=== PATIENT | female | born 1960 | race Caucasian/White ===

== ENCOUNTER 2021-08-29 12:02 | Outpatient (REF) | payer OTHER, SELFPAY | END 2021-08-29 12:03 | disposition home or self-care (01) | LOC: HO.LAB 12:02 | PROVIDERS: Visit Provider Family Medicine | DX: N39.0 Urinary tract infection, site not specified (principal) | CPT/HCPCS: 87086 ==

== ENCOUNTER 2022-09-23 11:55 | Outpatient (REF) | payer OTHER, SELFPAY | END 2022-09-23 11:56 | disposition home or self-care (01) | LOC: HO.LAB 11:55 | PROVIDERS: Visit Provider Hospitalist | DX: R82.71 Bacteriuria (principal) | CPT/HCPCS: 87086; 87088; 87186 ==

== ENCOUNTER 2022-09-26 07:34 | Outpatient (REF) | payer OTHER, SELFPAY ==
[2022-09-26 11:59] LABS: Hematocrit 40.1 % (37.0-47.0); Mean Corpuscular HGB Conc 32.4 g/dl (31.0-35.0); Mean Corpuscular Hemoglobin 29.6 pg (27.0-33.0); Mean Corpuscular Volume 91.3 fL (80.0-98.0); Mean Platelet Volume 9.2 fL (9.4-12.3); Platelet Count 344 X10*3/uL (160-400); Red Blood Count 4.39 X10*6/uL (4.20-5.50); Red Cell Distribution Width 11.5 % (11.0-16.0)
[2022-09-26 12:37] LABS: Alanine Aminotransferase 29 U/L (0-31); Albumin Level 4.2 g/dL (3.5-5.0); Alkaline Phosphatase 60 U/L (39-117); Anion Gap 12 (12-20); Aspartate Amino Transferase 31 U/L (5-31); Bilirubin Total 0.4 mg/dL (0.0-1.0); Blood Urea Nitrogen 23 mg/dL (9-16); Calcium 9.2 mg/dL (8.4-10.2); Carbon Dioxide 26 mmol/L (22-29); Chloride 107 mmol/L (96-108); Cholesterol 181 mg/dL; Estimated Glomerular Filt Rate > 60; Glucose Fasting 92 mg/dL (60-99); HDL Cholesterol 53 mg/dL; LDL Cholesterol Calculated 119 mg/dl; Potassium 5.2 mmol/L (3.3-5.1); Sodium 140 mmol/L (135-145); Total Protein 6.7 g/dL (6.5-8.0); Triglycerides 49 mg/dL
[2022-09-26 12:38] LABS: TSH reflex Free T4 0.22 uIU/mL (0.32-4.0)
[2022-09-26 13:13] LABS: Free T4 (Free Thyroxine) 1.21 ng/dL (0.71-1.85)
== END 2022-09-26 07:35 | disposition home or self-care (01) ==
LOC: HO.WFDLDS 07:34
PROVIDERS: Visit Provider Hospitalist
DX: Z00.00 Encounter for general adult medical examination without abnormal findings (principal); E03.9 Hypothyroidism, unspecified
CPT/HCPCS: 36415; 80053; 80061; 84439; 84443; 85027

== ENCOUNTER 2022-11-12 09:20 | Outpatient (REF) | payer OTHER, SELFPAY ==
[2022-11-12 12:54] LABS: TSH reflex Free T4 1.05 uIU/mL (0.32-4.0)
== END 2022-11-12 09:21 | disposition home or self-care (01) ==
LOC: HO.WFDLDS 09:20
PROVIDERS: Visit Provider Hospitalist
DX: E03.9 Hypothyroidism, unspecified (principal)
CPT/HCPCS: 36415; 84443

== ENCOUNTER 2023-04-13 10:45 | Outpatient (AMB) | payer OTHER, SELFPAY ==
--- NOTE | 2023-04-13 10:52 | MHC.PC.OV ---
Vital Signs 04/13/23 10:53 Height 5 ft 2 in Weight 87 lb 8 oz BMI 16.0 BP 104/60 Blood Pressure Location Lt brachial Position Sitting Pulse 70 Pulse Source Pulse Oximeter Pulse Oximetry (%) 98 Oxygen Delivery Method Room Air Intake Visit Reasons: trans of care from monie mueller, [place] Intake Note: Patient is here to follow up on hypothyroid and MS. Patient would like a refill of her Venlafaxine. She is also having trouble with her bowel movements. Allergies tetracycline Allergy (Mild, Verified 04/13/23 10:57) Rash Tobacco use date assessed: 04/13/23 Fall risk assessment: No Falls in past year Last assessed Fall Risk: 04/13/23 Dental Screening Dental Screen Date: 04/13/23 Did you have a dental visit in the last 12 months?: No Did you have a dental problem in the last 6 months where you did not have access to dental care?: No Was dental information given to patient?: Yes HPI trans of care from monie mueller [place] HPI Details Transfer of Care Prior PCP:?oMnie Menon Acute issue(s): Issues with bowel movements -Feels constipated a lot of the time Bladder spasms which didn't improve w/ hycosamine and oxybutinine . Needs urologist. 2ndary progressive MS -Needs neurologist PMHx: Hypothyroidism, MS, Overactive bladder SurgHx: Tonsillectomy FHx: Mom: Spinal stenosis, afib. Dad: CAD. Brother: Renal CA, Thyroid CA. Niece: Breast CA SocHx: Nonsmoker. EtOH none. No drugs. [facility] Social History Housing: House Patient Tobacco Use Status: Never used Tobacco e-Cigarette/Vaping Use: Never Used Second Hand Smoke Exposure: No service: No Current occupational status: retired Current occupational exposures/hazards: No Cognitive needs: No Hearing needs: No Vision needs: Yes (Patient wears reading glasses.) Questionnaire Thrive Questionnaire Date Thrive assessed: 09/23/22 JAYLA-7 AMB Questionnaire JAYLA-7 Date JAYLA - 7 assessed: 09/23/22 Source: Developed by Drs. Gabriele Dominguez, Jolene Heredia, Hammad Hess and colleagues, with an educational starr from [employer]. Review of Systems Const Denies chills, Denies fatigue, Denies fever(s), Denies headache(s) and Denies weakness ENT Denies dizziness and Denies headache(s) Card Denies chest pain, Denies lightheadedness, Denies dyspnea and Denies other (Palpitations) Resp Denies cough, Denies dyspnea, Denies wheezing and Denies other ( shortness of breath) Musc Denies numbness and Denies tingling Neuro Denies dizziness, Denies headache(s), Denies numbness, Denies tingling, Denies paresthesias and Denies weakness Psych Denies anxiety and Denies depression Endo Denies fatigue Aller/Immun Denies wheezing Physical exam (Primary Care) Vital Signs: Last Vital Signs Pulse 70 04/13/23 10:53 BP 104/60 04/13/23 10:53 Pulse Ox 98 04/13/23 10:53 Oxygen Delivery Method Room Air 04/13/23 10:53 BMI result Body Mass Index 16.0 Tobacco/Smoking Status: Tobacco use Status Tobacco use date assessed 04/13/23 04/13/23 11:06 Patient Tobacco Use Status Never used Tobacco 04/13/23 11:06 e-Cigarette/Vaping Use Never Used 04/13/23 11:06 Thrive Assessment: Date of Thrive Assessment Date Thrive assessed 09/23/22 04/13/23 11:06 Const General: no acute distress and well developed Nutritional Appearance: well nourished Orientation/consciousness: patient oriented x3 HENMT Head: Yes normocephalic and Yes atraumatic Eyes General: appearance normal, both eyes and all related structures Pupils: Equal, round and reactive pupils present EOM: EOMs intact bilaterally Resp Effort & Inspection: normal respiratory effort Auscultation: clear to auscultation bilaterally Cardio Rate: regular rate Rhythm: regular rhythm Heart sounds: S1 normal heart sound present, S2 normal heart sound present, no gallops, no murmurs and no rubs Neuro General: patient oriented x3 and gait normal Cranial nerves: Yes Equal, round and reactive pupils present Psych Affect: normal affect Assessment and Plan Assessment & Plan (1) Hypothyroidism (acquired): Code(s): E03.9 - Hypothyroidism, unspecified Plan: Check?thyroid?labs Continue?levothyroxine?as?prescribed (2) Overactive bladder: Code(s): N32.81 - Overactive bladder Plan: Has?tried hycosamine?and?oxybutynin. Symptoms?may?be?partly?due?to?MS Referred?to?Urology (3) Multiple sclerosis: Code(s): G35 - Multiple sclerosis Plan: Referred?to?neurology (4) Constipation: Code(s): K59.00 - Constipation, unspecified Plan: Increase?hydration?and?keep?fluid?intake?regular Trial?soluble?fiber Can?use?prune?juice?as?well If?not?improving?will?refer?to?GI (5) Laboratory exam ordered as part of routine general medical examination: Code(s): Z00.00 - Encounter for general adult medical examination without abnormal findings Orders: Orders Complete Blood Count Auto Diff Today Z00.00 - Encounter for general adult medical examination without abnormal findings Microalbumin, Random (w Creat) Today I10 - Essential (primary) hypertension Free T4 (Free Thyroxine) Today E03.9 - Hypothyroidism, unspecified UA and rflx microscopic Today Z00.00 - Encounter for general adult medical examination without abnormal findings Comprehensive [place]. 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
[2023-04-13 10:53] VITALS: BP 104/60; PULSE 70; O2SAT 98; BMI 16.0
== END 2023-04-13 11:35 | disposition home or self-care (01) ==
PROVIDERS: PCP Hospitalist; Visit Provider Family Medicine
DX: E03.9 Hypothyroidism, unspecified (principal); N32.81 Overactive bladder; G35 Multiple sclerosis; K59.00 Constipation, unspecified; Z00.00 Encounter for general adult medical examination without abnormal findings
CPT/HCPCS: 99214

== ENCOUNTER 2023-05-12 11:19 | Outpatient (AMB) | payer OTHER, SELFPAY ==
--- NOTE | 2023-05-12 11:34 | A.OFFVIS_ITS ---
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 She has a past medical history of MS, hypothyroidism, constipation, and overactive bladder. She presents to the office today as a new patient for lower urinary tract symptoms. In discussion with the patient today she reports having followed up with the urologist via online and having tried hycosamine and oxybutynin without any improvement in lower urinary tract symptoms. She reports symptoms have been present for quite some time. She discusses noting worsen urinary urgency. She reports noting urinary frequency, urinary urgency, with episodes of incontinence if not near a bathroom. She also reports nocturia however discusses her long sleep habits due to her MS and feels at times it is not her bladder that wakes her up to urinate. She otherwise denies hematuria, dysuria, foul smelling urine, changes to urinary stream, flank pain, fever, and or chills. In office urinalysis results reviewed with the patient today. PVR 170 mL. Discussed at length potential causes for lower urinary tract symptoms patient is experiencing. Discussed causes and affects of incomplete bladder emptying. She discusses her longstanding history of constipation in have tried multiple lifestyle modifications as well as medications for treatment of constipation. She otherwise offers no issues or concerns at this time. [facility] Housing: House Patient Tobacco Use Status: Never used Tobacco e-Cigarette/Vaping Use: Never Used Second Hand Smoke Exposure: No service: No Current occupational status: retired Current occupational exposures/hazards: No Cognitive needs: No Hearing needs: No Vision needs: Yes (Patient wears reading glasses.) Review of Systems Const Reports as per [facility] Eyes Reports no additional complaints ENT Reports no additional complaints Card Reports no additional complaints Resp Reports no additional complaints GI Reports as per [facility] Reports as per [facility] Musc Reports as per [facility] Neuro Reports no additional complaints Psych Reports no additional complaints Endo Reports as per [facility] Physical Exam Const General: cooperative, healthy appearing, comfortable, no acute distress, well developed, alert and awake Nutritional Appearance: thin Orientation/consciousness: patient oriented x3 Limitations: no limitations HEENT Head: Yes normal to inspection, Yes normocephalic and Yes atraumatic Ears: hearing grossly normal bilaterally Eyes General: appearance normal, both eyes and all related structures Neck Neck: Yes normal visual inspection and Yes trachea midline Chest Chest palpation & inspection: normal inspection of the chest Resp Effort & Inspection: normal respiratory effort and able to speak in complete sentences Cardio Rate: regular rate GI Inspection: Yes normal to inspection General: Yes no CVA tenderness Back/Spine/Pelvis Back: no CVA tenderness Skin General skin exam: no rashes or lesions noted Neuro General: patient oriented x3 Extrem General: Yes normal to inspection Psych Appearance: grossly normal and well kempt Mental Status: mental status grossly normal Speech and movement: Normal speech and movement present and Clear speech present Affect: normal affect Attitude: cooperative Thought process: Normal thought process present Thought content: Normal thought content present Insight: Fair insight present (Psych) Judgement: Fair judgement present (Psych) Office Procedures Post Void Residual Post Residual Void Post Void Residual (PVR): 170 [id number] Void Residual by ultrasound Results AMB Urinalysis, Automated UA Leukoctes 500 Quinn/uL Last Edit by [employer] on 05/12/23 12:11 UA Nitrite Negative Last Edit by [employer] on 05/12/23 12:11 UA Urobilinogen 0.2 mg/dL Last Edit by [employer] on 05/12/23 12:11 UA Protein 15 mg/dL Last Edit by [employer] on 05/12/23 12:11 UA pH 7.0 Last Edit by [employer] on 05/12/23 12:11 UA Blood 80 David/uL Last Edit by [employer] on 05/12/23 12:11 UA Specific [place] 1.015 Last Edit by [employer] on 05/12/23 12:11 UA Ketone Negative Last Edit by Neris Anderson on 05/12/23 12:11 UA Bilirubin 0 mg/dL Last Edit by Neris Anderson on 05/12/23 12:11 UA Glucose 0 mg/dL Last Edit by Neris Anderson on 05/12/23 12:11 Results Reviewed Results Reviewed: Laboratory Last Values Urine pH (Auto) 7.0 05/12/23 11:38 Specific [place] (Auto) 1.015 05/12/23 11:38 Urine Protein (Auto) 15 mg/dL 05/12/23 11:38 Glucose (UA)(Auto) 0 mg/dL 05/12/23 11:38 Urine Ketones (Auto) Negative 05/12/23 11:38 Urine Blood (Auto) 80 David/uL 05/12/23 11:38 Urine Nitrite (Auto) Negative 05/12/23 11:38 Urine Bilirubin (Auto) 0 mg/dL 05/12/23 11:38 Urine Urobilinogen (Auto) 0.2 mg/dL 05/12/23 11:38 Leukocyte Esterase (Auto) 500 Quinn/uL 05/12/23 11:38 Assessment & Plan Assessment & Plan (1) Incomplete bladder emptying: Code(s): R33.9 - Retention of urine, unspecified (2) Overactive bladder: Code(s): N32.81 - Overactive bladder (3) UTI (urinary tract infection): Code(s): N39.0 - Urinary tract infection, site not specified Plan: In office urinalysis results reviewed with the patient today; as noted above; will send for urine culture. PVR 170 mL. Will obtain retroperitoneal ultrasound for further assessment evaluation. Start Macrobid as discussed and prescribed. Start terazosin 1 mg at bedtime. Discussed at length potential causes for lower urinary tract symptoms patient is experiencing. Discussed causes and affects of incomplete bladder emptying. Discussed attempting to double void to assist with incomplete bladder emptying. Discussed UTI prevention with D mannose supplement, vitamin-C, increasing fluid intake, behavioral therapy with timed voiding, perineal hygiene and postcoital voiding, and management of constipation with stool softeners and increased fiber intake. Follow-up in 6 weeks with imaging and PVR at next office visit; or sooner with any issues, concerns, and or questions. Orders: Orders AMB Urinalysis Automated Today Z13.9 - Encounter for screening, unspecified Urine Culture Today N39.0 - Urinary tract infection, site not specified AMB Post Void Residual by ultrasound Today N32.81 - Overactive bladder US retroperitoneal comp Today N32.81 - Overactive bladder, N39.0 - Urinary tract infection, site not specified, R33.9 - Retention of urine, unspecified Medications: New nitrofurantoin macrocrystal 100 mg PO BID 7 days 14 caps 0RF R32 - Unspecified urinary incontinence terazosin 1 mg PO BEDTIME 30 days 30 caps 1RF R39.12 - Poor urinary stream Patient Instructions: The patient had an opportunity to ask questions regarding the treatment plan. All questions were answered. Physical exam, labs, and imaging were discussed and reviewed in detail. As well as risks, benefits, and discussion of treatment choices. No major barriers to understanding were identified. The patient expressed understanding and agreement with the above treatment plan. The patient was made aware they should contact our office by phone for worsening of their current condition, the appearance of new symptoms, or with any questions or concerns. Compliance is encouraged with any medications and follow up testing that is ordered. It is a privilege to be allowed the opportunity to participate in? your urological care.? Again, if you have any questions or concerns If you have any questions or concerns please do not hesitate to contact me. The office is [phone]. This note is constructed using voice recognition software. While every effort has been made to ensure accuracy general operations agent errors may have been included. Yours sincerely, FLORINA Cid Coding Level of Care Code New Pt Level 4 (86802) Diagnoses Incomplete bladder emptying R33.9 Overactive bladder N32.81 UTI (urinary tract infection) N39.0 CPT Codes Post Residual Void - PVR CPT Code: 28782-Biwl Void Residual by ultrasound ([id number])
== END 2023-05-12 13:31 | disposition home or self-care (01) ==
PROVIDERS: PCP Hospitalist; Visit Provider Nurse Practitioner Family
DX: R33.9 Retention of urine, unspecified (principal); N32.81 Overactive bladder; N39.0 Urinary tract infection, site not specified
CPT/HCPCS: 99204

== ENCOUNTER 2023-05-12 11:19 | Outpatient (REF) | payer OTHER, SELFPAY | END 2023-05-12 11:20 | disposition home or self-care (01) | LOC: HO.LNP 11:19 | PROVIDERS: PCP Hospitalist; Visit Provider Nurse Practitioner Family | DX: N39.0 Urinary tract infection, site not specified (principal); R33.9 Retention of urine, unspecified; N32.81 Overactive bladder; R32 Unspecified urinary incontinence; R39.12 Poor urinary stream; Z79.899 Other long term (current) drug therapy | CPT/HCPCS: 51798; 81003; 87086; 99202 ==

== ENCOUNTER 2023-06-10 11:18 | Outpatient (AMB) | payer OTHER, SELFPAY ==
--- NOTE | 2023-06-10 12:31 | MHC.OFFWIV ---
Intake Vital Signs 06/10/23 12:32 Height 5 ft 2 in Weight 85 lb 8 oz BMI 15.6 BP 100/62 Blood Pressure Location Rt brachial Position Sitting Pulse 73 Pulse Source Pulse Oximeter Pulse Oximetry (%) 96 Oxygen Delivery Method Room Air Intake Visit Reasons: ? UTI Intake Note: Patient is here today for a possible uti. Symptoms are burning, itchy and frequency of urination. 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 Wind Farm Electrical Systems Designer: Not Required per policy Accompanied by: Self / Same As Patient Allergies tetracycline Allergy (Mild, Verified 06/10/23 12:50) Rash Medication List - Last Reconciled 06/10/23 by Daisha Cruz, ASSEMBLY MACHINE FEEDER- calcium polycarbophil (FiberCon) 625 mg PO DAILY 30 days levothyroxine 100 mcg PO DAILY terazosin 1 mg PO BEDTIME 30 days venlafaxine ER 75 mg PO BID Do you need a note to return to daycare/school/sports/work: No HPI HPI Comments History of Present Illness Details here today with urinary itching, burning and urinary frequency started over the weekend tried otc yeast supp x 2 w/o relief last night used boric acid supp admits its better but not yet gone active w/ urology, was tx w/ ab for UTI. states no sx at that time. work up for incomplete bladder emptying in the setting of MS denies fever, chills, hematuria, discharge. 05/12/23 Uro note reviewed. Urine cx showed contamination PFSH Social History Housing: House Patient Tobacco Use Status: Never used Tobacco e-Cigarette/Vaping Use: Never Used Second Hand Smoke Exposure: No service: No Current occupational status: retired Current occupational exposures/hazards: No Cognitive needs: No Hearing needs: No Vision needs: Yes (Patient wears reading glasses.) Review of Systems Const All systems reviewed & are unremarkable except as noted in HPI and below Physical Exam Vital Signs: Last Vital Signs Pulse 73 06/10/23 12:32 BP 100/62 06/10/23 12:32 Pulse Ox 96 06/10/23 12:32 Oxygen Delivery Method Room Air 06/10/23 12:32 BMI result Body Mass Index 15.6 Const Other: awake, alert NAD, thin MMM RRR LS CTAB No CVAT No suprapubic tenderness, however exam creates sensation to void Results AMB Urinalysis, Automated UA Leukoctes 3 Quinn/uL Last Edit by ERICA Ramirez on 06/10/23 12:48 UA Nitrite Positive Last Edit by ERICA Ramirez on 06/10/23 12:48 UA Urobilinogen 1 mg/dL Last Edit by ERICA Ramirez on 06/10/23 12:48 UA Protein 2 mg/dL Last Edit by ERICA Ramirez on 06/10/23 12:48 UA pH 5.0 Last Edit by Melquiades Goodman A on 06/10/23 12:48 UA Blood 3 David/uL Last Edit by ERICA Ramirez on 06/10/23 12:48 UA Specific [place] 1.025 Last Edit by ERICA Ramirez on 06/10/23 12:48 UA Ketone Positive Last Edit by ERICA Ramirez on 06/10/23 12:48 UA Bilirubin 1 mg/dL Last Edit by Melquiades Goodman Xavier on 06/10/23 12:48 UA Glucose 1 mg/dL Last Edit by ERICA Ramirez on 06/10/23 12:48 AMB Random Glucose (hemocue) AMB Random Glucose (hemocue) 86 mg/dL Last Edit by ERICA Ramirez on 06/10/23 13:37 Results Reviewed Results Reviewed: Laboratory Last Values Random Glu (Clinic) 86 mg/dL 06/10/23 13:19 Urine pH (Auto) 5.0 H* 06/10/23 12:31 Specific [place] (Auto) 1.025 06/10/23 12:31 Urine Protein (Auto) 2 mg/dL 06/10/23 12:31 Glucose (UA)(Auto) 1 mg/dL 06/10/23 12:31 Urine Ketones (Auto) Positive A* 06/10/23 12:31 Urine Blood (Auto) 3 David/uL 06/10/23 12:31 Urine Nitrite (Auto) Positive A* 06/10/23 12:31 Urine Bilirubin (Auto) 1 mg/dL L* 06/10/23 12:31 Urine Urobilinogen (Auto) 1 mg/dL H* 06/10/23 12:31 Leukocyte Esterase (Auto) 3 Quinn/uL H* 06/10/23 12:31 Assessment & Plan Assessment & Plan (1) UTI (urinary tract infection): Code(s): N39.0 - Urinary tract infection, site not specified Qualifiers: Hematuria presence: without hematuria Urinary tract infection type: acute cystitis Qualified Code(s): N30.00 - Acute cystitis without hematuria Plan: . (2) Urine ketones: Code(s): R82.4 - Acetonuria Plan: . (3) Glucosuria with normal serum glucose: Code(s): R81 - Glycosuria Plan: . Orders: Orders AMB Urinalysis Automated 06/10/23 Z13.9 - Encounter for screening, unspecified UA CC w/rflx Micro + Cult 06/22/23 N39.0 - Urinary tract infection, site not specified AMB Random Glucose (hemocue) 06/10/23 Z13.9 - Encounter for screening, unspecified Medications: New sulfamethoxazole-trimethoprim 800-160 mg (Bactrim DS) 1 tab PO BID 7 days 14 tabs 0RF Patient Instructions: Given the urine dip, will tx for UTI empirically w/ Bactrim, she has taken this before and done well. Last AB Macrobid 04/2023. I will not send for culture given use of vag supps in the last few days, last time was last night. Her urine did show glucose and ketones. finger stick in office was normal at 86. therefore, i will have her repeat urine in about 2 weeks. she needs to properly hydrate before giving this sample and avoid any vag supps. if at this time, the urine remains abnormal, further work up w/ labs will be needed. she is aware and agreeable to this plan. Coding Level of Care Code Est Pt Level 4 (25477) Diagnoses Acute cystitis without hematuria N30.00 Hematuria presence: without hematuria Urinary tract infection type: acute cystitis Urine ketones R82.4 Glucosuria with normal serum glucose R81
[2023-06-10 12:32] VITALS: BP 100/62; PULSE 73; O2SAT 96; BMI 15.6
== END 2023-06-10 13:10 | disposition home or self-care (01) ==
PROVIDERS: PCP Hospitalist; Visit Provider Nurse Practitioner Family
DX: R35.0 Frequency of micturition (principal)
CPT/HCPCS: 81003; 82948; 99214

== ENCOUNTER 2023-08-21 09:37 | Outpatient (REF) | payer MEDICARE, SELFPAY ==
--- NOTE | ~2023-08-21 | US_ITS ---
EXAMINATION: US RETROPERITONEAL COMPLETE (RENAL) CLINICAL INFORMATION: Retention of urine, unspecified. COMPARISON: None available. TECHNIQUE: Real-time imaging of the kidneys and bladder. FINDINGS: RIGHT KIDNEY: 10.2 x 3.5 x 5.0 cm (SAG x AP x TRV). The kidney is normal in size, contour, and echogenicity. Renal cortical thickness is normal. No calculi or focal parenchymal lesions. No hydronephrosis. LEFT KIDNEY: 11.7 x 4.5 x 4.1 cm (SAG x AP x TRV). The kidney is normal in size, contour, and echogenicity. Renal cortical thickness is normal. No renal calculi or hydronephrosis. There is 4.5 x 3.7 x 4.2 cm cyst in the upper pole medially. This cyst has thin internal septations but no nodularity. BLADDER: Well distended and normal. Bilateral ureteral jets are demonstrated. Prevoid bladder volume is 520.1 mL. Postvoid bladder volume is 285.2 mL. The wall of the urinary bladder is irregular. There is floating debris in the urine. US/US retroperitoneal comp IMPRESSION: Complex cyst in left kidney, Bosniak 1. Large amount of floating debris and increase in amount of residual urine
== END 2023-08-21 09:38 | disposition home or self-care (01) ==
LOC: HO.US 09:37
PROVIDERS: PCP Family Medicine; Visit Provider Nurse Practitioner Family
DX: R33.9 Retention of urine, unspecified (principal); N32.81 Overactive bladder; N39.0 Urinary tract infection, site not specified
CPT/HCPCS: 76770

== ENCOUNTER 2023-09-01 09:20 | Outpatient (REF) | payer MEDICARE, SELFPAY ==
[2023-09-01 11:12] LABS: Appearance Urine Clear; Color Urine Yellow; Glucose Urine UA Negative (Negative); Leukocyte Esterase Urine Moderate (2+) (Negative); Nitrite Urine Negative (Negative); PH 7.5 (5.0-9.0); UMIC TRIGGER UA YES; UMIC TRIGGER UACC YES; Urine Blood Trace (Negative); Urine Ketones Negative (Negative); Urine Protein Negative (Neg-Trace)
[2023-09-01 11:16] LABS: Bacteria Urine None Seen (None Seen); Hyaline Casts Urine 0-2 /LPF (0-2); UACC Culture Trigger YES; WBC Urine 21-50 /HPF (0-5)
[2023-09-01 11:32] LABS: MANUAL DIFF FLAG NO
[2023-09-01 11:40] LABS: Basophils Percent Auto 0.5 % (0-2); Eosinophils Absolute Auto 0.1 X10*3/uL (0.0-0.4); Eosinophils Percent Auto 1.1 % (0-4); Hematocrit 42.5 % (37.0-47.0); Hemoglobin 14.4 g/dl (12.0-16.0); Imm Gran Abs Auto 0.02 X10*3/uL (0.00-0.03); Imm Gran Pct Auto 0.4 % (0.0-0.4); Lymphocytes Absolute Auto 1.4 X10*3/uL (1.2-4.9); Lymphocytes Percent Auto 24.9 % (20-40); Mean Corpuscular HGB Conc 33.9 g/dl (31.0-35.0); Mean Corpuscular Hemoglobin 30.7 pg (27.0-33.0); Mean Corpuscular Volume 90.6 fL (80.0-98.0); Monocytes Absolute Auto 0.4 X10*3/uL (0.1-1.2); Monocytes Percent Auto 7.6 % (2-11); Neutrophils Absolute Auto 3.6 x10*3/uL (2.0-8.3); Neutrophils Percent Auto 65.5 % (45-73); Platelet Count 301 X10*3/uL (160-400); Red Blood Count 4.69 X10*6/uL (4.20-5.50); Red Cell Distribution Width 12.1 % (11.0-16.0); White Blood Count 5.5 X10*3/uL (4.8-10.8)
[2023-09-01 12:19] LABS: Alanine Aminotransferase 28 U/L (0-31); Albumin Level 4.2 g/dL (3.5-5.0); Alkaline Phosphatase 76 U/L (39-117); Anion Gap 10 (12-20); Aspartate Amino Transferase 30 U/L (5-31); Bilirubin Total 0.4 mg/dL (0.0-1.0); Blood Urea Nitrogen 19 mg/dL (9-16); Calcium 9.6 mg/dL (8.4-10.2); Carbon Dioxide 29 mmol/L (22-29); Chloride 105 mmol/L (96-108); Cholesterol 205 mg/dL (<200); Estimated Glomerular Filt Rate > 60; Glucose Fasting 97 mg/dL (60-99); HDL Cholesterol 64 mg/dL (>40); LDL Cholesterol Calculated 124 mg/dL (<100); Potassium 4.7 mmol/L (3.3-5.1); Sodium 139 mmol/L (135-145); TSH reflex Free T4 1.99 uIU/mL (0.32-4.0); Thyroid Stimulating Hormone 1.99 uIU/mL (0.32-4.0); Total Protein 7.5 g/dL (6.5-8.0); Triglycerides 85 mg/dL (<150)
[2023-09-01 12:20] LABS: Creatinine Urine 68.15 mg/dL; Microalbum/Creatinine Ratio Ur 48.4 ug/mg cr (<30)
[2023-09-01 12:30] LABS: Free T4 (Free Thyroxine) 1.23 ng/dL (0.71-1.85)
[2023-09-02 11:52] LABS: Triiodothyronine T3 Total 81 ng/dL (76-181)
== END 2023-09-01 09:21 | disposition home or self-care (01) ==
LOC: HO.WFDLDS 09:20
PROVIDERS: Nurse Practitioner Family; Referring Provider Family Medicine
DX: Z00.00 Encounter for general adult medical examination without abnormal findings (principal); I10 Essential (primary) hypertension; E03.9 Hypothyroidism, unspecified; N39.0 Urinary tract infection, site not specified
CPT/HCPCS: 36415; 80053; 80061; 81001; 82043; 82570; 84439; 84443; 84480; 85025; 87086

== ENCOUNTER 2023-09-04 09:30 | Outpatient (AMB) | payer MEDICARE, SELFPAY ==
--- NOTE | 2023-09-04 09:54 | MHC.OFFVIS ---
Intake Intake Visit Reasons: 6w/US/PVR(set) Intake Note: Patient presents today for a follow-up on U/S and PVR Meds- Tetracycline Allergies to Antibiotic- No Known Allergies Blood Thinner- None Post Void Residual: initial 198 ml's, 2nd attempt 0ml's Patient Symptoms: Patient stated she is having to push to urinate, and she stopped the medication due to the medication is not working effectively. Express Clerk Required: No Accompanied by: Self / Same As Patient Allergies tetracycline Allergy (Mild, Verified 09/04/23 10:39) Rash Medication List - Last Reconciled 09/04/23 by FLORINA Cid calcium polycarbophil (FiberCon) 625 mg PO DAILY 30 days levothyroxine 100 mcg PO DAILY nitrofurantoin macrocrystal 50 mg PO .PRN 90 days venlafaxine ER 75 mg PO BID HPI HPI Comments History of Present Illness Details Vinita is a very pleasant 63-year-old female patient of . She has a past medical history of MS, hypothyroidism, constipation, and overactive bladder. She presents to the office today for follow-up. Of note, patient was seen approximately 3 months ago as a new patient for lower urinary tract symptoms at which time a retroperitoneal ultrasound was ordered and the patient was started on low-dose terazosin for incomplete bladder emptying. Recent retroperitoneal ultrasound results reviewed with the patient today. In bilateral kidneys with no hydronephrosis. Left kidney with 4.5 cyst in the upper pole classified as a Bosniak 1 per radiology report. The bladder is well distended and normal. Bilateral ureteral jets are demonstrated. Pre void bladder volume is approximately 520 mL. Postvoid bladder volume is approximately 285 mL. The wall of the urinary bladder is irregular. There is floating debris in the urine. In discussion with the patient today she reports having stopped terazosin 1 mg at bedtime as she did not find this helpful. She reports experiencing dry nasal passages while taking . She reports feeling her constipation has significantly improved with recommendations of dried fruits daily. She discusses feeling this has also helped her. She had previously been following up with a urologist via online and had trialed hycosamine and oxybutynin without any improvement in lower urinary tract symptoms. Discussed at length causes and affects of incomplete bladder emptying. She reports nocturia however discusses her long sleep habits due to her MS and feels at times it is not her bladder that wakes her up to urinate. She reports noting urinary urgency and frequency. She otherwise denies hematuria, dysuria, foul smelling urine, changes to urinary stream, flank pain, fever, and or chills. In office urinalysis results reviewed with the patient today. Original PVR 198 however patient attempted to double void as directed 2nd PVR 0 mL. Discussed at length potential causes for lower urinary tract symptoms patient is experiencing. When asked she denies any previous history of nicotine dependence and or workplace chemical exposure. She otherwise offers no issues or concerns at this time. [facility] Social History Housing: House Patient Tobacco Use Status: Never used Tobacco e-Cigarette/Vaping Use: Never Used Second Hand Smoke Exposure: No service: No Current occupational status: retired Current occupational exposures/hazards: No Cognitive needs: No Hearing needs: No Vision needs: Yes (Patient wears reading glasses.) Review of Systems Const Reports as per HPI Eyes Reports no additional complaints ENT Reports no additional complaints Card Reports no additional complaints Resp Reports no additional complaints GI Reports as per HPI Reports as per HPI Musc Reports as per HPI Neuro Reports no additional complaints Psych Reports no additional complaints Endo Reports as per HPI Physical Exam Const General: cooperative, healthy appearing, comfortable, no acute distress, well developed, alert and awake Nutritional Appearance: thin Orientation/consciousness: patient oriented x3 Limitations: no limitations HEENT Head: Yes normal to inspection, Yes normocephalic and Yes atraumatic Ears: hearing grossly normal bilaterally Eyes General: appearance normal, both eyes and all related structures Neck Neck: Yes normal visual inspection and Yes trachea midline Chest Chest palpation & inspection: normal inspection of the chest Resp Effort & Inspection: normal respiratory effort and able to speak in complete sentences Cardio Rate: regular rate GI Inspection: Yes normal to inspection General: Yes no CVA tenderness Back/Spine/Pelvis Back: no CVA tenderness Skin General skin exam: no rashes or lesions noted Neuro General: patient oriented x3 Extrem General: Yes normal to inspection Psych Appearance: grossly normal and well kempt Mental Status: mental status grossly normal Speech and movement: Normal speech and movement present and Clear speech present Affect: normal affect Attitude: cooperative Thought process: Normal thought process present Thought content: Normal thought content present Insight: Fair insight present (Psych) Judgement: Fair judgement present (Psych) Office Procedures Post Void Residual Post Residual Void Post Void Residual (PVR): 0 07801-Gocl Void Residual by ultrasound Results AMB Urinalysis, Automated UA Leukoctes 15 Quinn/uL Last Edit by Beulah Green [facility] on 09/04/23 10:12 UA Nitrite Negative Last Edit by Beulah Greeneula Green, [facility] on 09/04/23 10:12 UA Urobilinogen 3.5 mg/dL Last Edit by Beulah Greeneula Green, [facility] on 09/04/23 10:12 UA Protein 15 mg/dL Last Edit by Beulah Greeneula Green, [facility] on 09/04/23 10:12 UA pH 6.5 Last Edit by Beulah Greeneula Green, [facility] on 09/04/23 10:12 UA Blood 25 David/uL Last Edit by Beulah Greeneula Green, [facility] on 09/04/23 10:12 UA Specific Arley 1.015 Last Edit by Beulah Green, [facility] on 09/04/23 10:12 UA Ketone Negative Last Edit by Beulah Greeneula Green, [facility] on 09/04/23 10:12 UA Bilirubin 0 mg/dL [facility] on 09/04/23 10:12 UA Glucose 0 mg/dL Last Edit by Beulah Greeneula Green [facility] on 09/04/23 10:12 Results Reviewed Results Reviewed: Laboratory Last Values Urine pH (Auto) 6.5 09/04/23 09:58 Specific Arley (Auto) 1.015 09/04/23 09:58 Urine Protein (Auto) 15 mg/dL 09/04/23 09:58 Glucose (UA)(Auto) 0 mg/dL 09/04/23 09:58 Urine Ketones (Auto) Negative 09/04/23 09:58 Urine Blood (Auto) 25 David/uL 09/04/23 09:58 Urine Nitrite (Auto) Negative 09/04/23 09:58 Urine Bilirubin (Auto) 0 mg/dL 09/04/23 09:58 Urine Urobilinogen (Auto) 3.5 mg/dL 09/04/23 09:58 Leukocyte Esterase (Auto) 15 Quinn/uL 09/04/23 09:58 Date of Service: 08/21/23 EXAMINATION: US RETROPERITONEAL COMPLETE (RENAL) FINDINGS: RIGHT KIDNEY: 10.2 x 3.5 x 5.0 cm (SAG x AP x TRV). The kidney is normal in size, contour, and echogenicity. Renal cortical thickness is normal. No calculi or focal parenchymal lesions. No hydronephrosis. LEFT KIDNEY: 11.7 x 4.5 x 4.1 cm (SAG x AP x TRV). The kidney is normal in size, contour, and echogenicity. Renal cortical thickness is normal. No renal calculi or hydronephrosis. There is 4.5 x 3.7 x 4.2 cm cyst in the upper pole medially. This cyst has thin internal septations but no nodularity. BLADDER: Well distended and normal. Bilateral ureteral jets are demonstrated. Prevoid bladder volume is 520.1 mL. Postvoid bladder volume is 285.2 mL. The wall of the urinary bladder is irregular. There is floating debris in the urine. IMPRESSION: Complex cyst in left kidney, Bosniak 1. Large amount of floating debris and increase in amount of residual urine Assessment & Plan Assessment & Plan (1) Incomplete bladder emptying: Code(s): R33.9 - Retention of urine, unspecified (2) Renal cyst: Code(s): N28.1 - Cyst of kidney, acquired (3) Recurrent UTI: Code(s): N39.0 - Urinary tract infection, site not specified (4) Urinary frequency: Code(s): R35.0 - Frequency of micturition (5) Nocturia: Code(s): R35.1 - Nocturia (6) Microscopic hematuria: Code(s): R31.29 - Other microscopic hematuria Plan In office urinalysis results reviewed with the patient today; as noted above; will send urine for cytology PVR 0 mL Discussed at length potential causes and affects for incomplete bladder emptying as well as microscopic hematuria; this was discussed at length. Discussed further microscopic hematuria workup with in office cystoscopy. Will continue with surveillance monitoring of incomplete bladder emptying at this time Postcoital Macrobid prescription provided. Recent retroperitoneal ultrasound results reviewed with the patient today; as noted above. Discussed bladder triggers/irritants. Discussed attempting to continue to double void to assist with incomplete bladder emptying Stop terazosin 1 mg Discussed bladder diaring. Discussed potential for near future bethanechol, or low-dose Cialis, or CIC to assist with incomplete bladder emptying. Discussed possible near future in office cystoscopy and or urodynamics for further assessment evaluation. Follow-up in 2-3 months with PVR; or sooner with any issues, concerns, and or questions. Orders: Orders AMB Post Void Residual by ultrasound 09/04/23 R33.9 - Retention of urine, unspecified AMB Post Void Residual by ultrasound 09/04/23 R33.9 - Retention of urine, unspecified Urine Cytology 09/04/23 R31.29 - Other microscopic hematuria AMB Urinalysis Automated 09/04/23 R33.9 - Retention of urine, unspecified Medications: New nitrofurantoin macrocrystal Postcoital 50 mg PO .PRN 90 days 90 caps 1RF N39.0 - Urinary tract infection, site not specified Discontinued sulfamethoxazole-trimethoprim 800-160 mg (Bactrim DS) Discontinued Reason: Patient Completed Course 1 tab PO BID 7 days 14 tabs 0RF terazosin Discontinued Reason: Patient no longer taking 1 mg PO BEDTIME 30 days 30 caps 1RF R39.12 - Poor urinary stream Patient Instructions: The patient had an opportunity to ask questions regarding the treatment plan. All questions were answered. Physical exam, labs, and imaging were discussed and reviewed in detail. As well as risks, benefits, and discussion of treatment choices. No major barriers to understanding were identified. The patient expressed understanding and agreement with the above treatment plan. The patient was made aware they should contact our office by phone for worsening of their current condition, the appearance of new symptoms, or with any questions or concerns. Compliance is encouraged with any medications and follow up testing that is ordered. It is a privilege to be allowed the opportunity to participate in? your urological care.? Again, if you have any questions or concerns If you have any questions or concerns please do not hesitate to contact me. The office is [phone]. This note is constructed using voice recognition software. While every effort has been made to ensure accuracy sales planning coordinator errors may have been included. Yours sincerely, FLORINA Cid Coding Level of Care Code Est Pt Level 4 (61242) Diagnoses Incomplete bladder emptying R33.9 Renal cyst N28.1 Recurrent UTI N39.0 Urinary frequency R35.0 Nocturia R35.1 Microscopic hematuria R31.29 CPT Codes Post Residual Void - PVR CPT Code: 74753-Tsmt Void Residual by ultrasound ([id number])
== END 2023-09-04 10:32 | disposition home or self-care (01) ==
PROVIDERS: PCP Hospitalist; Visit Provider Nurse Practitioner Family
DX: R33.9 Retention of urine, unspecified (principal); N28.1 Cyst of kidney, acquired; N39.0 Urinary tract infection, site not specified; R35.0 Frequency of micturition; R35.1 Nocturia; R31.29 Other microscopic hematuria
CPT/HCPCS: 99214

== ENCOUNTER 2023-09-04 09:30 | Outpatient (REF) | payer MEDICARE, SELFPAY ==
[2023-09-04 16:36] LABS: Urine Cytology See Pathology rpt
== END 2023-09-04 09:31 | disposition home or self-care (01) ==
LOC: HO.LAB 09:30
PROVIDERS: PCP Hospitalist; Visit Provider Nurse Practitioner Family
DX: R31.29 Other microscopic hematuria (principal); R33.9 Retention of urine, unspecified; N32.81 Overactive bladder; R35.1 Nocturia; N28.1 Cyst of kidney, acquired; N39.0 Urinary tract infection, site not specified; R35.0 Frequency of micturition; Z79.899 Other long term (current) drug therapy
CPT/HCPCS: 51798; 81003; 88112; 99212

== ENCOUNTER 2023-09-10 11:13 | Outpatient (AMB) | payer MEDICARE, SELFPAY ==
--- NOTE | 2023-09-10 11:18 | MHC.PC.OV ---
Vital Signs 09/10/23 11:19 Height 5 ft 2 in Weight 88 lb 4 oz BMI 16.1 BP 100/62 Blood Pressure Location Lt brachial Position Sitting Pulse 75 Pulse Source Pulse Oximeter Pulse Oximetry (%) 99 Oxygen Delivery Method Room Air Intake Visit Reasons: Extended Exam R/S from 07/07/2023 Intake Note: Patient is here for an extended exam today. Allergies tetracycline Allergy (Mild, Verified 09/10/23 11:22) Rash Tobacco use date assessed: 09/10/23 Fall risk assessment: No Falls in past year Last assessed Fall Risk: 09/10/23 Dental Screening Dental Screen Date: 09/10/23 Did you have a dental visit in the last 12 months?: No Did you have a dental problem in the last 6 months where you did not have access to dental care?: No Was dental information given to patient?: No (Patient has dentist list) HPI Extended Exam R/S from 07/07/2023 HPI Details 63 y/o female presents for a CPE with f/u labs and health maintenance. Labs were drawn 09/01/23. Reviewed labs with pt. Triglycerides 85. TC 205. LDL 124. HDL 64. Microalb/Creat ratio 48.4. TSH levels 1.99 uIU/mL. She is on levothyroxine 100mcg daily. Pt notes last mammogram was a long time ago. She does not currently have an Ob-Wire Bender Hand. Pt reports abnormal osteoporosis screening and had needed injections for this. HPI Comments History of Present Illness Details Documentation assistance for Goldy Slade MD, was provided by Luc Horton, Electric System Operator on 09/10/2023 12:29 PM RHONDA. I, Dr. Slade, have read, observed, and verified documentation. [facility] Social History Housing: House Patient Tobacco Use Status: Never used Tobacco e-Cigarette/Vaping Use: Never Used Second Hand Smoke Exposure: No service: No Current occupational status: retired Current occupational exposures/hazards: No Cognitive needs: No Hearing needs: No Vision needs: Yes (Patient wears reading glasses.) Questionnaire PHQ-9 Over the last 2 weeks, how often have you been bothered by any of the following problems? 1. Little interest or pleasure in doing things: not at all 2. Feeling down, depressed, or hopeless: not at all 3. Trouble falling or staying asleep, or sleeping too much: not at all 4. Feeling tired or having little energy: not at all 5. Poor appetite or overeating: not at all 6. Feeling bad about yourself - or that you are a failure or have let yourself or your family down: not at all 7. Trouble concentrating on things, such as reading the newspaper or watching television: not at all 8. Moving or speaking so slowly that other people could have noticed. Or the opposite - being so fidgety or restless that you have been moving around a lot more than usual: not at all 9. Thoughts that you would be better off or of hurting yourself in some way: not at all Total score: 0 Depression Screening Interpretation: Negative Depression Screening Done: Yes 46371 - PHQ-9 Billing: Yes Source: Developed by Drs. Gabriele Dominguez, Jolene Heredia, Hammad Hess and colleagues, with an educational starr from [employer]. Thrive Questionnaire Date Thrive assessed: 09/10/23 I am a: Patient What is your living situation today?: I have a steady place to live Within the past 12 months, did the food you bought not last and you didn't have the money to get more?: Never true Within the past 12 months, did you worry whether your food would run out before you got money to buy more?: Never true Do you have trouble paying for medicines?: No Do you have trouble getting transportation to medical appointments?: No Do you have trouble paying your heating and electricity bill?: No Do you have trouble taking care of your child, family member or friend?: No Do you have trouble with day-to-day activities such as bathing, preparing meals, shopping, managing finances, etc.?: No Are you currently unemployed and looking for a job?: No Are you interested in more education?: No THRIVE Score: 0 AUDIT C Alcohol Use Questionnaire (AUDIT-C) 1. How often do you have a drink containing alcohol?: Never 3. How often do you have six or more drinks on one occasion?: Never Total Score: 0 JAYLA-7 AMB Questionnaire JAYLA-7 Date JAYLA - 7 assessed: 09/10/23 Feeling nervous, anxious, or on edge: 0 = Not at all Not being able to stop or control worryin = Not at all Worrying too much about different things: 0 = Not at all Trouble relaxin = Not at all Being so restless that it is hard to sit still: 0 = Not at all Becoming easily annoyed or irritable: 0 = Not at all Feeling afraid as if something awful might happen: 0 = Not at all Total JAYLA-7 score (0-4 normal; 5-9 mild; 10-14 moderate; 15-21 severe): 0 Source: Developed by Drs. Gabriele Dominguez, Jolene Heredia, Hammad Hess and colleagues, with an educational starr from [employer]. JAYLA-7 Assessment Billing JAYLA-7 Assessment Tool: JAYLA-7 Assessment 09884 Review of Systems Const Denies chills, Denies fatigue, Denies fever(s), Denies headache(s) and Denies weakness Eyes Denies change in vision ENT Denies dizziness, Denies headache(s), Denies hearing loss, Denies nasal congestion, Denies sinus pain, Denies sinus pressure and Denies sore throat Card Denies chest pain, Denies lightheadedness, Denies dyspnea and Denies other (palpitations) Resp Denies cough, Denies dyspnea and Denies wheezing GI Denies abdominal pain, Denies melena, Denies hematochezia, Denies change in bowel habits, Denies dyspepsia and Denies nausea Denies hematuria and Denies dysuria Musc Denies abnormal gait, Denies myalgias, Denies arthralgias, Denies numbness and Denies tingling Skin/Breast Denies rash, Denies unusual bruising and Denies wounds Neuro Denies abnormal gait, Denies dizziness, Denies headache(s), Denies memory loss, Denies numbness, Denies Sensory deficit (Neuro), Denies tingling and Denies weakness Psych Denies anxiety, Denies depression and Denies memory loss Endo Denies cold intolerance, Denies fatigue, Denies heat intolerance, Denies polydipsia and Denies polyuria Ankur/Lymph Denies easy bleeding and Denies easy bruising Aller/Immun Denies wheezing Physical exam (Primary Care) Vital Signs: Last Vital Signs Pulse 75 09/10/23 11:19 BP 100/62 09/10/23 11:19 Pulse Ox 99 09/10/23 11:19 Oxygen Delivery Method Room Air 09/10/23 11:19 BMI result Body Mass Index 16.1 Tobacco/Smoking Status: Tobacco use Status Tobacco use date assessed 09/10/23 09/10/23 11:26 Patient Tobacco Use Status Never used Tobacco 09/10/23 11:26 e-Cigarette/Vaping Use Never Used 09/10/23 11:26 PHQ-9: PHQ-9 Score PHQ-9: Total score 0 09/10/23 11:30 Depression Screening Interpretation: Negative Thrive Assessment: Date of Thrive Assessment Date Thrive assessed 09/10/23 09/10/23 11:30 Const General: no acute distress, well developed, alert and awake Nutritional Appearance: well nourished Orientation/consciousness: patient oriented x3 HENMT Head: Yes normocephalic and Yes atraumatic Ears: hearing grossly normal bilaterally and TM's normal bilaterally General nose exam: Normal external nose present and Normal nares present Mouth: Normal oral and palatal mucosa present and moist mucous membranes Teeth and gingiva: dentition normal Throat: Yes posterior oropharynx normal Eyes General: appearance normal, both eyes and all related structures Pupils: Equal, round and reactive pupils present and Pupil accommodation reflex normal EOM: EOMs intact bilaterally Neck Neck: Yes normal visual inspection, Yes no lymphadenopathy and Yes trachea midline Thyroid: Thyroid normal Carotids: no bruits Lymphatic: no lymphadenopathy noted Chest Chest palpation & inspection: normal inspection of the chest Resp Effort & Inspection: normal respiratory effort Auscultation: clear to auscultation bilaterally Cardio Rate: regular rate Rhythm: regular rhythm Heart sounds: S1 normal heart sound present, S2 normal heart sound present, no gallops, no murmurs and no rubs Bruits: no abdominal aortic bruits and no carotid bruits GI Palpation (GI): No Abdominal aortic bruit present, Soft to palpation, nontender, No hepatosplenomegaly present and No Rebound tenderness present Auscultation: normal bowel sounds General: Yes no CVA tenderness Back/Spine/Pelvis Back: no CVA tenderness Cervical Spine: cervical ROM normal and No Cervical spine tenderness Thoracic/Lumbar Spine: thoraco-lumbar ROM normal, No pain with thoraco-lumbar ROM, No thoracic spinal tenderness and No lumbar spinal tenderness Skin Lesions: no lesions Rashes: no rashes Trauma: no lacerations or abrasions Wounds: no wounds Nails: normal Neuro General: patient oriented x3 Cranial nerves: Yes Equal, round and reactive pupils present Cognition (Neuro): normal cognition Gait exam (Neuro): Normal gait present Motor exam (neuro): 5/5 motor strength present throughout Sensory Exam: No Sensory deficit (Neuro) Deep tendon reflexes (DTR's): Right patellar reflex intensity grade: 2+ and Left patellar reflex intensity grade: 2+ Extrem General: Yes normal to inspection and No edema Psych Appearance: grossly normal Affect: normal affect Attitude: cooperative Thought process: Normal thought process present Assessment and Plan Assessment & Plan (1) Adult general medical exam: Code(s): Z00.00 - Encounter for general adult medical examination without abnormal findings Plan: 63-year-old?female?presents?for?complete?physical?exam Encouraged?healthy?diet (2) Hypothyroidism (acquired): Code(s): E03.9 - Hypothyroidism, unspecified Plan: Thyroid?hormone?levels?are?within?normal?limits.??Continue?current?levothyroxine (3) Screening for colon cancer: Code(s): Z12.11 - Encounter for screening for malignant neoplasm of colon Plan: Will?follow-up?on?this?at?her?next?visit (4) Microscopic hematuria: Code(s): R31.29 - Other microscopic hematuria Plan: Followed?by?urology (5) Breast cancer screening by mammogram: Code(s): Z12.31 - Encounter for screening mammogram for malignant neoplasm of breast Plan: Due?for?mammogram-ordered (6) Overactive bladder: Code(s): N32.81 - Overactive bladder Plan: Follow-up?with?urology (7) Screening for cervical cancer: Code(s): Z12.4 - Encounter for screening for malignant neoplasm of cervix Plan: Patient?would?like?a?referral?to?OBGYN-ordered She?is?63?and?in?a?long-term,?stable,?monogamous?relationship She?can?discuss?Pap?smears?with?her?guest experience specialist (8) Screening for osteoporosis: Code(s): Z13.820 - Encounter for screening for osteoporosis Plan: Patient?describes?a?history?of?osteoporosis Check?bone?density?test (9) Multiple sclerosis: Code(s): G35 - Multiple sclerosis Plan: Stable Had?referred?her?to?Neurology?and?she?has?an?upcoming?appointment. Orders: Orders XR DEXA axial skeleton Today M81.0 - Age-related osteoporosis without current pathological fracture MM tomosynthesis screening BI Today Z12.31 - Encounter for screening mammogram for malignant neoplasm of breast Referrals [facility] Referral Z12.4 - Encounter for screening for malignant neoplasm of cervix Coding Level of Care Code Est Pt Level 3 (88795) Est Pt Prev Care 40-64y(86275) Diagnoses Adult general medical exam Z00.00 Hypothyroidism (acquired) E03.9 Screening for colon cancer Z12.11 Microscopic hematuria R31.29 Breast cancer screening by mammogram Z12.31 Overactive bladder N32.81 Screening for cervical cancer Z12.4 Screening for osteoporosis Z13.820 Multiple sclerosis G35 Additional Codes JAYLA-7 Assessment Billing - JAYLA-7 Assessment Tool: JAYLA-7 Assessment 73558 ([id number])
[2023-09-10 11:19] VITALS: BP 100/62; PULSE 75; O2SAT 99; BMI 16.1
== END 2023-09-10 12:37 | disposition home or self-care (01) ==
PROVIDERS: PCP Hospitalist; Visit Provider Family Medicine
DX: Z00.00 Encounter for general adult medical examination without abnormal findings (principal); E03.9 Hypothyroidism, unspecified; Z12.11 Encounter for screening for malignant neoplasm of colon; G35 Multiple sclerosis; R31.29 Other microscopic hematuria; Z12.31 Encounter for screening mammogram for malignant neoplasm of breast; N32.81 Overactive bladder; Z13.820 Encounter for screening for osteoporosis
CPT/HCPCS: 99397

== ENCOUNTER 2023-09-15 10:59 | Outpatient (AMB) | payer MEDICARE, SELFPAY ==
--- NOTE | 2023-09-15 11:04 | MHC.OFFVIS ---
Intake Vital Signs 09/15/23 11:05 Respiration 16 Pulse 81 Pulse Source Pulse Oximeter Pulse Oximetry (%) 97 Oxygen Delivery Method Room Air Intake Visit Reasons: ENP-Multiple Sclerosis-CONF Intake Note: Pt presents to the office for new patient evaluation for multiple sclerosis. 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 she was diagnosed at age 26 in [facility]. she had about 3-5 relapses and has been treated with Avonex for 10 years( took it twice a week) . she stopped because of a leg swelling. she was on a trial 2009 and 2010 - not sure of the medication. she has not been on any treatment since then. she moved to [place] in 2019 and has not seen a neurologist since then. Her current symptoms are generalized stiffness, mild balance issues, urinary retention etc.( saw a urologist) Cognition is good. Sleep- sleeps good at night but has nocturia She has constipation . Vision is good- has h/o optic neuritis. she says she still has episodes - which she thinks it is optic neuritis, pain on eye movement and headaches - lasting1 week. she has 1-2 episodes a year. She denies speech or swallowing issues. [facility] Medical History (Updated 09/15/23 @ 11:47 by Carissa Brandt MD) 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, secondary progressive Screening for osteoporosis Screening for cervical cancer Microalbuminuria Breast cancer screening by mammogram Nocturia Incomplete bladder emptying Hypothyroidism (acquired) Surgical History Hx of tonsillectomy Social History Housing: House Patient Tobacco Use Status: Never used Tobacco e-Cigarette/Vaping Use: Never Used Second Hand Smoke Exposure: No service: No Current occupational status: retired Current occupational exposures/hazards: No Cognitive needs: No Hearing needs: No Vision needs: Yes (Patient wears reading glasses.) Physical Exam Vital Signs: Last Vital Signs Pulse 81 09/15/23 11:05 Resp 16 09/15/23 11:05 Pulse Ox 97 09/15/23 11:05 Oxygen Delivery Method Room Air 09/15/23 11:05 Const General: cooperative, comfortable and no acute distress Nutritional Appearance: thin Orientation/consciousness: patient oriented x3 Eyes Pupils: Equal, round and reactive pupils present Neuro Other: Mild difficulty with tandem gait Gait- normal base , left leg stiffer and circumducts General: patient oriented x3, tone normal, moves all extremities and no focal motor deficits Cranial nerves: Yes Facial sensation intact/muscles of mastication intact, Yes Equal, round and reactive pupils present, Yes Bilaterally intact EOM present, Yes Nystagmus not present, Yes Normal facial strength present, Yes Midline tongue present and Yes Symmetric palate elevation present Cognition (Neuro): normal cognition Motor exam (neuro): 5/5 motor strength present throughout and Normal motor muscle tone present throughout Deep tendon reflexes (DTR's): Right triceps reflex intensity grade: 3+, Left triceps reflex intensity grade: 3+, Rt Biceps (C5, C6): 3+, Left biceps reflex intensity grade: 3+, Right brachioradialis reflex intensity grade: 3+, Left brachioradialis reflex intensity grade: 3+, Right patellar reflex intensity grade: 4+, Left patellar reflex intensity grade: 4+, Right ankle reflex intensity grade: 4+ and Left ankle reflex intensity grade: 4+ Coordination: [id number] test normal Assessment & Plan Assessment & Plan (1) Multiple sclerosis, secondary progressive: Code(s): G35 - Multiple sclerosis (2) Optic neuritis due to multiple sclerosis: Code(s): H46.9 - Unspecified optic neuritis; G35 - Multiple sclerosis Plan I will evaluate her with MRI Brain and C spine - to assess her current status of her MS Visual evoked potentials to assess her optic nerves Ophthalmology evaluation for visual field testing Check her vit D levels - deficiency is associated with MS Orders: Orders MR head/brain wo/w con Today G35 - Multiple sclerosis MR cervical spine wo/w con Today G35 - Multiple sclerosis, H46.9 - Unspecified optic neuritis Vitamin D 25-OH (D2 and D3) Today G35 - Multiple sclerosis Referrals Ophthalmology Referral G35 - Multiple sclerosis, H46.9 - Unspecified optic neuritis Coding Level of Care Code New Pt Level 4 (11875) Diagnoses Multiple sclerosis, secondary progressive G35 Optic neuritis due to multiple sclerosis H46.9; G35
[2023-09-15 11:05] VITALS: PULSE 81; RESP 16; O2SAT 97
== END 2023-09-15 12:01 | disposition home or self-care (01) ==
PROVIDERS: PCP Hospitalist; Visit Provider Psychiatry & Neurology Neurology
DX: G35 Multiple sclerosis (principal); H46.9 Unspecified optic neuritis
CPT/HCPCS: 99204

== ENCOUNTER 2023-09-15 12:03 | Outpatient (REF) | payer MEDICARE, SELFPAY ==
[2023-09-19 15:33] LABS: Vitamin D 25-OH, D2 <4 ng/mL; Vitamin D 25-OH, D3 23 ng/mL; Vitamin D 25-OH, Total 23 ng/mL (30-100)
== END 2023-09-15 12:04 | disposition home or self-care (01) ==
LOC: HO.HKASLDS 12:03
PROVIDERS: Visit Provider Psychiatry & Neurology Neurology
DX: G35 Multiple sclerosis (principal); H46.9 Unspecified optic neuritis; Z79.899 Other long term (current) drug therapy
CPT/HCPCS: 36415; 82306; 99202

== ENCOUNTER 2023-10-09 09:23 | Outpatient (REF) | payer MEDICARE, SELFPAY ==
--- NOTE | ~2023-10-09 | MM_ITS ---
EXAMINATION: BONE DENSITOMETRY CLINICAL INDICATION: Age-related osteoporosis without current pathological fracture. COMPARISON: This is the patient's baseline examination. TECHNIQUE: Using a Rocket Relief DXA System (software version: 13.1) manufactured by [employer], dual-energy x-ray absorptiometry was performed of the lumbar spine and left hip. The images are of good technical quality. Summary results are attached. FINDINGS: LEFT FEMUR, NECK: BMD 0.575 g/cm2, Z-score -1.3, T-score -3.3, osteoporosis. LEFT FEMUR, TOTAL: BMD 0.577 g/cm2, Z-score -1.6, T-score -3.4, osteoporosis. AP SPINE L1-L4: BMD 0.859 g/cm2, Z-score -0.3, T-score -2.7, osteoporosis. IDENTIFIED RISK FACTORS: Menopause, low body weight. HISTORY OF FRACTURE: None listed. MEDICATIONS: Calcium. MM/XR DEXA axial skeleton IMPRESSION: 1. DIAGNOSIS: Osteoporosis based on the lowest T-score value of -3.4 in the total femur applying World Health Organization criteria. 2. 10-YEAR FRACTURE RISK PREDICTION, FRAX: According to the guidelines, FRAX calculation should only be performed on patients in the osteopenia bone density category. Therefore, FRAX was not performed on this patient. 3. Treatment Recommendations: NOF guidelines recommend consideration for treatment in postmenopausal women and men age 50 and older presenting with the following: -A hip or vertebral (clinical or morphometric) fracture. -T-score less than or equal to -2.5 at the femoral neck or spine after appropriate evaluation to exclude secondary causes. -Low bone mass at the hip or spine and a 10-year fracture probability by FRAX of greater than or equal to 3% for hip fracture or greater than or equal to 20% for major osteoporotic fracture based on the [place] adapted WHO algorithm. 4. Other Recommendations: All treatment decisions require clinical judgment and consideration of individual patient factors, including patient preferences, comorbidities, previous drug use, risk factors not captured in the FRAX model (e.g. frailty, falls, vitamin D deficiency, increased bone turnover, interval significant decline in bone density) and possible under or overestimation of fracture risk by FRAX. Additional medical evaluation for secondary cause of low bone mineral density may be appropriate. FUTURE SCAN RECOMMENDATION: People with diagnosed cases of osteoporosis or at high risk for fracture should have regular bone mineral density tests. For patients eligible for Medicare, routine testing is allowed once every 2 years. The testing frequency can be increased to one year for patients who have rapidly progressing disease, those who are receiving or discontinuing medical therapy to restore bone mass, or have additional risk factors.
--- NOTE | ~2023-10-09 | MM_ITS ---
EXAMINATION: MM SCREENING DIGITAL BREAST TOMOSYNTHESIS, BILATERAL CLINICAL INFORMATION: Screening. Asymptomatic. COMPARISON: Mammography: There are no prior mammograms available for comparison. TECHNIQUE: Digital breast tomosynthesis is performed in both the craniocaudal and mediolateral oblique views along with computer-aided detection (CAD). Synthesized 2D images are generated from the tomosynthesis. FINDINGS: The breasts are heterogeneously dense, which may obscure small masses (ACR BI-RADS breast composition Category c). There are no significant masses, abnormal calcifications, or other abnormalities. MM/MM tomosynthesis screening BI IMPRESSION: No mammographic evidence of malignancy. ASSESSMENT: BI-RADS BI-RADS 1 - Negative RECOMMENDATION: Routine annual mammography screening. 1 year F/U This examination should not preclude the clinical evaluation of a suspicious palpable abnormality. This patient's information was entered into a reminder system with a target due date for their next mammogram.
== END 2023-10-09 09:24 | disposition home or self-care (01) ==
LOC: HO.MAMMO 09:23
PROVIDERS: PCP Family Medicine; Visit Provider Family Medicine
DX: Z12.31 Encounter for screening mammogram for malignant neoplasm of breast (principal); Z13.820 Encounter for screening for osteoporosis; M81.0 Age-related osteoporosis without current pathological fracture; Z78.0 Asymptomatic menopausal state
CPT/HCPCS: 77063; 77067; 77080

== ENCOUNTER → 2023-10-09 10:00 | Outpatient (BNV) | payer MEDICARE, SELFPAY | PROVIDERS: PCP Family Medicine; Visit Provider Radiology Diagnostic Radiology | DX: Z12.31 Encounter for screening mammogram for malignant neoplasm of breast (principal) | CPT/HCPCS: 77063; 77067 ==

== ENCOUNTER 2023-10-21 09:28 | Outpatient (REF) | payer MEDICARE, SELFPAY ==
--- NOTE | ~2023-10-21 | MR_ITS ---
EXAMINATION: MR CERVICAL SPINE WITHOUT AND WITH CONTRAST CLINICAL INFORMATION: Multiple sclerosis COMPARISON: None available. TECHNIQUE: MRI of the cervical spine was obtained using routine sequences with and without contrast. Intravenous contrast: Gadavist 4.5 mL. FINDINGS: The visualized cervical vertebrae are intact with normal alignment. No focal bone lesion with abnormal signal can be seen. Evaluation of the intervertebral discs show: C2/C3: Intervertebral disc height is normal, with normal T2 signal. No focal disc herniation is seen. Bilateral C2-C3 neural foramina are patent. Bilateral apophyseal joints are intact with normal alignment. C3/C4: Intervertebral disc height is normal, with normal T2 signal. No focal disc herniation is seen. Bilateral C3-C4 neural foramina are patent. Bilateral apophyseal joints are intact with normal alignment. C4/C5: Intervertebral disc height is normal, with normal T2 signal. Mild posterior disc protrusion is seen. Bilateral C4-C5 neural foramina are patent. Bilateral apophyseal joints are intact with normal alignment. C5/C6: Intervertebral disc height is normal, with normal T2 signal. No focal disc herniation is seen. Bilateral C5-C6 neural foramina are patent. Bilateral apophyseal joints are intact with normal alignment. C6/C7: Intervertebral disc height is normal, with normal T2 signal. No focal disc herniation is seen. Bilateral C6-C7 neural foramina are patent. Bilateral apophyseal joints are intact with normal alignment. C7/T1: Intervertebral disc height is normal, with normal T2 signal. No focal disc herniation is seen. Bilateral C7-T1 neural foramina are patent. Bilateral apophyseal joints are intact with normal alignment. Cervical spinal cord is normal in position and signal on T2 weighted sequences. Extensive observation artifacts producing STIR signal hyperintensity is seen in the cervical spinal cord. Post contrast images show no abnormal enhancing cervical spine bone lesion. No intra spinal canalicular enhancing soft tissue mass lesion can be seen. MR/MR cervical spine wo/w con IMPRESSION: 1. Mild posterior disc protrusion at C4-C5. 2. No evidence of cervical spinal cord demyelinating disease or enhancing acutely demyelinating lesion. 3. No evidence of cervical spinal canal or neural foraminal stenosis.
--- NOTE | ~2023-10-21 | MR_ITS ---
EXAMINATION: MR BRAIN WITHOUT AND WITH CONTRAST CLINICAL INFORMATION: Multiple sclerosis COMPARISON: None available. TECHNIQUE: Multiplanar, multisequence MRI of the brain was obtained before and after the intravenous administration of 4.5 mL Gadavist. FINDINGS: Cerebral sulci and cisterns are normal. There is mild ventriculomegaly. Multiple T2 hyperintense nonenhancing lesions are seen in bilateral frontal and parietal deep white matter, bilateral frontal subcortical white matter. Many lesions are oriented perpendicular to the lateral ventricles producing a Solitario finger pattern. Corpus callosum is not involved. No focal brainstem or cerebellar lesions with abnormal signal can be seen. Diffusion weighted images show no abnormal regional decrease in diffusion. Post contrast images show no enhancing cerebral, brainstem or cerebellar lesions. No abnormal meningeal enhancement is seen. The pituitary gland is normal. Optic chiasm is not displaced. Cerebellar tonsils position is normal. A semilunar shaped polypoid mucosal lesion is seen at anterior medial right maxillary sinus wall measuring 0.6 cm in AP diameter, 0.3 cm in width, 0.8 cm in vertical height. MR/MR head/brain wo/w con IMPRESSION: 1. Multiple T2 hyperintense nonenhancing lesions are seen in bilateral frontal and parietal deep white matter, bilateral frontal subcortical white matter. Findings are consistent with multiple sclerosis. 2. No enhancing lesions are seen to suggest acute demyelination. 3. Mild ventriculomegaly. 4. Right maxillary sinus polypoid mucosal lesion. 5. No evidence of acute cerebral infarction.
[2023-10-21] MEDS: gadobutroL 7.5 ML VIAL IVPUSH (10:54)
== END 2023-10-21 09:29 | disposition home or self-care (01) ==
LOC: HO.MRI 09:28
PROVIDERS: PCP Family Medicine; Visit Provider Psychiatry & Neurology Neurology
DX: G35 Multiple sclerosis (principal); H46.9 Unspecified optic neuritis
CPT/HCPCS: 70553; 72156; A9585

== ENCOUNTER 2023-11-18 11:28 | Outpatient (REF) | payer MEDICARE, SELFPAY ==
[2023-11-26 01:39] LABS: HPV mRNA E6/E7 rflx Not Detected (Not Detected)
== END 2023-11-18 11:29 | disposition home or self-care (01) ==
LOC: HO.LNP 11:28
PROVIDERS: PCP Hospitalist; Visit Provider Obstetrics & Gynecology
DX: Z01.419 Encounter for gynecological examination (general) (routine) without abnormal findings (principal); N95.2 Postmenopausal atrophic vaginitis; M81.0 Age-related osteoporosis without current pathological fracture
CPT/HCPCS: 87624; 88142

== ENCOUNTER 2023-11-18 11:28 | Outpatient (AMB) | payer MEDICARE, SELFPAY ==
[2023-11-18 11:32] VITALS: BP 100/58; BMI 15.7
--- NOTE | 2023-11-18 11:32 | A.OFFVIS_ITS ---
Vital Signs 11/18/23 11:32 Height 5 ft 2 in Weight 86 lb BMI 15.7 BP 100/58 L Intake Visit Reasons: New patient Annual Intake Note: c/o of vaginal dryness Button Sewer Required: No Information Interpreted: non-clinical & clinical Agricultural Economist: Agricultural Economist Present (Elizabeth Marr ERICA) Accompanied by: Self / Same As Patient Allergies tetracycline Allergy (Mild, Verified 11/18/23 11:36) Rash Post menopausal: Yes HPI Comments Details: Presenting for annual exam. Complaining of vaginal dryness and painful intercourse Last Pap/HPV was few years ago Last Mammogram was BI-RADS 1 in 10/13 No previous screening Colonoscopy Last DEXA scan was in 10/13 T score was-3.4 at the femur level and-2.7 at the spine level [facility] Medical History 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, secondary progressive Screening for osteoporosis Screening for cervical cancer Microalbuminuria Breast cancer screening by mammogram Nocturia Incomplete bladder emptying Hypothyroidism (acquired) Surgical History Hx of tonsillectomy Family History Family/Other Breast cancer Father Heart disease Brother Cancer of kidney Social History Household Members: Spouse Housing: House Alcohol intake: never Patient Tobacco Use Status: Never used Tobacco e-Cigarette/Vaping Use: Never Used Second Hand Smoke Exposure: No service: No Current occupational status: retired Current occupational exposures/hazards: No Sexual orientation: Straight/Heterosexual Gender identity: Female Cognitive needs: No Hearing needs: No Vision needs: Yes (Patient wears reading glasses.) Female Reproductive History Menstrual Menopause type: natural Total pregnancies: 0 Date of Mammogram: 10/09/23 Review of Systems Const All systems reviewed & are unremarkable except as noted in HPI and below Card Reports as per HPI Resp Reports as per HPI GI Reports as per HPI and Reports no additional complaints Reports as per HPI Physical Exam Vital Signs: Last Vital Signs BP 100/58 L 11/18/23 11:32 BMI result Body Mass Index 15.7 Const General: cooperative, healthy appearing and comfortable Chest Chest palpation & inspection: normal inspection of the chest and normal palpation of entire chest wall Breast/axilla inspection: normal inspection of the breasts and normal inspection of the axillae Breast/axilla palpation: normal palpation of the breasts, normal palpation of the axillae and no axillary lymphadenopathy Resp Effort & Inspection: normal respiratory effort Auscultation: clear to auscultation bilaterally Percussion: percussion normal Cardio Palpation: normal PMI Rate: regular rate Rhythm: regular rhythm Heart sounds: no murmurs and no rubs Peripheral pulses: Peripheral pulses 2+ throughout GI Inspection: Yes normal to inspection Palpation (GI): Soft to palpation, nontender, no guarding, not rigid and No hepatosplenomegaly present Percussion: Yes normal to percussion Auscultation: normal bowel sounds Rectal Exam - Female: deferred General: Yes bladder normal to palpation External Female Exam: No lesion Speculum Exam - Vagina: normal palpation, not erythematous and other (Atrophic vaginitis looking) Speculum Exam - Cervix: normal appearance of the cervix and normal palpation Bimanual exam- vagina & uterus: normal bimanual exam, normal palpation, uterine size normal, bladder normal to palpation, consistency normal and normal palpation Bimanual Exam- Adnexa, other: normal adnexae, no masses and no tenderness Assessment & Plan Assessment & Plan (1) Well woman exam: Code(s): Z01.419 - Encounter for gynecological examination (general) (routine) without abnormal findings Category: Medical Plan: Co testing done. Counseled the patient about the recommended dietary allowance of 1200 mg of Calcium & 600 IU of vitamin D. Instructions given to patient to schedule next screening Mammogram in 10/14. The patient was referred to GI for screening colonoscopy . The patient was instructed to perform monthly self-breast exams and schedule annual exam in a year. All questions answered and the patient verbalized understanding. (2) Atrophic vaginitis: Code(s): N95.2 - Postmenopausal atrophic vaginitis Category: Medical Plan: Discussed with the patient the finding on physical exam showing atrophic vaginitis options of treatment were discussed with the patient including estrogen vaginal therapy with all its possible side effects including but not l imited to an increase in the risk of strokes and DVT, [place] and breast cancer, and others after further discussion, the patient decided to proceed with it. Instructions given the patient to use half an applicator 0.5 g per vagina daily for the 1st week then attempts to per week for maintenance therapy for 2-3 months. Instructions given the patient to call in case symptoms not improve (3) Osteoporosis: Code(s): M81.0 - Age-related osteoporosis without current pathological fracture Category: Medical Plan: Discussed with the patient the results of the DEXA scan since T-score is-3.4 will refer to Rheumatology for further management Orders: Referrals Gastroenterology Referral Z12.11 - Encounter for screening for malignant neoplasm of colon Rheumatology Referral M81.0 - Age-related osteoporosis without current pathological fracture Medications: New estradiol 0.01%(0.1mg/gram) (Estrace) Use half an applicator daily for the 1st week then twice a week for 90 days 0.5 appful vaginal 2XW 90 days 42.5 grams 0RF Coding Level of Care Code New Pt Prev Care >65yr (87074) Diagnoses Well woman exam Z01.419 Atrophic vaginitis N95.2 Osteoporosis M81.0
== END 2023-11-18 12:10 | disposition home or self-care (01) ==
PROVIDERS: PCP Hospitalist; Visit Provider Obstetrics & Gynecology
DX: Z01.419 Encounter for gynecological examination (general) (routine) without abnormal findings (principal); N95.2 Postmenopausal atrophic vaginitis; M81.0 Age-related osteoporosis without current pathological fracture
CPT/HCPCS: 99387

== ENCOUNTER 2023-12-16 10:23 | Outpatient (REF) | payer MEDICARE, SELFPAY | END 2023-12-16 10:24 | disposition home or self-care (01) | LOC: HO.LNP 10:23 | PROVIDERS: PCP Family Medicine; Visit Provider Obstetrics & Gynecology | DX: R87.615 Unsatisfactory cytologic smear of cervix (principal); Z12.4 Encounter for screening for malignant neoplasm of cervix | CPT/HCPCS: 88175; 99212 ==

== ENCOUNTER 2023-12-16 10:23 | Outpatient (AMB) | payer MEDICARE, SELFPAY ==
[2023-12-16 10:33] VITALS: BMI 15.7
--- NOTE | 2023-12-16 10:33 | MHC.OFFVIS ---
Vital Signs 12/16/23 10:33 Height 5 ft 2 in Weight 85 lb 15.684 oz BMI 15.7 Intake Visit Reasons: pap only Utilities Estimator And Drafter Required: No Information Interpreted: non-clinical & clinical Shearing Supervisor: Shearing Supervisor Present (Elizabeth Marr ERICA) Accompanied by: Self / Same As Patient Allergies tetracycline Allergy (Mild, Verified 12/16/23 10:35) Rash Post menopausal: Yes HPI Comments Details: Presenting for repeat Pap smear. Last Pap smear was unsatisfactory due to inflammation HPV negative. The patient is requesting refill on her estradiol cream [facility] Medical History 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, secondary progressive Screening for osteoporosis Screening for cervical cancer Microalbuminuria Breast cancer screening by mammogram Nocturia Incomplete bladder emptying Hypothyroidism (acquired) Surgical History Hx of tonsillectomy Family History Family/Other Breast cancer Father Heart disease Brother Cancer of kidney Social History Household Members: Spouse Housing: House Alcohol intake: never Patient Tobacco Use Status: Never used Tobacco e-Cigarette/Vaping Use: Never Used Second Hand Smoke Exposure: No service: No Current occupational status: retired Current occupational exposures/hazards: No Sexual orientation: Straight/Heterosexual Gender identity: Female Cognitive needs: No Hearing needs: No Vision needs: Yes (Patient wears reading glasses.) Review of Systems Const All systems reviewed & are unremarkable except as noted in HPI and below Physical Exam Vital Signs: BMI result Body Mass Index 15.7 General: Yes no CVA tenderness External Female Exam: normal external appearance and normal appearance of the urethra Speculum Exam - Vagina: normal appearance of the vagina, normal palpation, no lesions and no masses Speculum Exam - Cervix: normal appearance of the cervix, normal palpation, no lesions, no masses and nontender Bimanual exam- vagina & uterus: normal bimanual exam, normal palpation, uterine size normal, normal palpation, uterine shape normal, No Cervical tenderness present and non-tender Bimanual Exam- Adnexa, other: normal adnexae Back/Spine/Pelvis Back: no CVA tenderness Assessment & Plan Assessment & Plan (1) Unsatisfactory cervical Papanicolaou smear: Code(s): R87.615 - Unsatisfactory cytologic smear of cervix Category: Medical Plan: Pap repeated, estradiol refill Orders: Orders Pap Smear Today R87.615 - Unsatisfactory cytologic smear of cervix Medications: Refilled estradiol 0.01%(0.1mg/gram) (Estrace) Use half an applicator daily for the 1st week then twice a week for 90 days 0.5 appful vaginal 2XW 90 days 42.5 grams 0RF Coding Level of Care Code Est Pt Level 3 (78461) Diagnoses Unsatisfactory cervical Papanicolaou smear R87.615
== END 2023-12-16 13:17 | disposition home or self-care (01) ==
PROVIDERS: PCP Family Medicine; Visit Provider Obstetrics & Gynecology
DX: R87.615 Unsatisfactory cytologic smear of cervix (principal)
CPT/HCPCS: 99213

== ENCOUNTER 2024-01-13 10:42 | Outpatient (AMB) | payer MEDICARE, SELFPAY ==
--- NOTE | 2024-01-13 10:53 | A.OFFVIS_ITS ---
Vital Signs 01/13/24 10:54 Height 5 ft 2 in Weight 88 lb BMI 16.1 BP 102/58 L Blood Pressure Location Rt brachial Position Sitting Respiration 16 Pulse 76 Pulse Source Pulse Oximeter Pulse Oximetry (%) 97 Oxygen Delivery Method Room Air Intake Visit Reasons: 3 month Follow Up Intake Note: Pt presents to the office for a 4 month follow up for MS and to discuss results of Brain/ spine MRI performed 10/21/23 Cardiovascular Disease Specialist Required: No Allergies tetracycline Allergy (Mild, Verified 01/13/24 10:54) Rash Medication List - Last Reconciled 01/13/24 by Carissa Brandt MD calcium citrate 200 mg PO DAILY cyanocobalamin (vitamin B-12) (B-12 DOTS) 2,000 mcg PO DAILY estradiol 0.01%(0.1mg/gram) (Estrace) 0.25 appful vaginal 2XW 90 days [id number]-muve pr con 15 billion cell-170 mg (Ultra Donna Plus) caps PO levothyroxine 100 mcg PO DAILY potassium gluconate 595 mg PO DAILY venlafaxine ER 75 mg PO BID PFSH Medical History 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, secondary progressive Screening for osteoporosis Screening for cervical cancer Microalbuminuria Breast cancer screening by mammogram Nocturia Incomplete bladder emptying Hypothyroidism (acquired) Surgical History Hx of tonsillectomy Family History Family/Other Breast cancer Father Heart disease Brother Cancer of kidney Social History Household Members: Spouse Housing: House Alcohol intake: never Patient Tobacco Use Status: Never used Tobacco e-Cigarette/Vaping Use: Never Used Second Hand Smoke Exposure: No service: No Current occupational status: retired Current occupational exposures/hazards: No Sexual orientation: Straight/Heterosexual Gender identity: Female Cognitive needs: No Hearing needs: No Vision needs: Yes (Patient wears reading glasses.) Physical Exam Vital Signs: Last Vital Signs Pulse 76 01/13/24 10:54 Resp 16 01/13/24 10:54 BP 102/58 L 01/13/24 10:54 Pulse Ox 97 01/13/24 10:54 Oxygen Delivery Method Room Air 01/13/24 10:54 BMI result Body Mass Index 16.1 Const General: cooperative, comfortable and no acute distress Nutritional Appearance: thin Orientation/consciousness: patient oriented x3 Eyes Pupils: Equal, round and reactive pupils present Neuro Other: Mild difficulty with tandem gait Gait- normal base , left leg stiffer and circumducts General: patient oriented x3, tone normal, moves all extremities and no focal motor deficits Cranial nerves: Yes Facial sensation intact/muscles of mastication intact, Yes Equal, round and reactive pupils present, Yes Bilaterally intact EOM present, Yes Nystagmus not present, Yes Normal facial strength present, Yes Midline tongue present and Yes Symmetric palate elevation present Cognition (Neuro): normal cognition Motor exam (neuro): 5/5 motor strength present throughout and Normal motor muscle tone present throughout Deep tendon reflexes (DTR's): Right triceps reflex intensity grade: 3+, Left triceps reflex intensity grade: 3+, Rt Biceps (C5, C6): 3+, Left biceps reflex intensity grade: 3+, Right brachioradialis reflex intensity grade: 3+, Left brachioradialis reflex intensity grade: 3+, Right patellar reflex intensity grade: 4+, Left patellar reflex intensity grade: 4+, Right ankle reflex intensity grade: 4+ and Left ankle reflex intensity grade: 4+ Coordination: [id number] test normal Assessment & Plan Assessment & Plan (1) Multiple sclerosis, secondary progressive: Code(s): G35 - Multiple sclerosis Category: Medical (2) Optic neuritis due to multiple sclerosis: Code(s): H46.9 - Unspecified optic neuritis; G35 - Multiple sclerosis Category: Medical Plan * [facility]er to [facility] MS clinic for further management. Visual evoked potentials to assess her optic nerves Ophthalmology evaluation for visual field testing Orders: Orders Visual evoked potential Today G35 - Multiple sclerosis, H46.9 - Unspecified optic neuritis Referrals Neurology Referral G35 - Multiple sclerosis Coding Level of Care Code Est Pt Level 4 (86475) Diagnoses Multiple sclerosis, secondary progressive G35 Optic neuritis due to multiple sclerosis H46.9; G35
[2024-01-13 10:54] VITALS: BP 102/58; PULSE 76; RESP 16; O2SAT 97; BMI 16.1
== END 2024-01-13 11:31 | disposition home or self-care (01) ==
PROVIDERS: PCP Hospitalist; Visit Provider Psychiatry & Neurology Neurology
DX: G35 Multiple sclerosis (principal); H46.9 Unspecified optic neuritis
CPT/HCPCS: 99214

== ENCOUNTER → 2024-01-13 10:42 | Outpatient (BNVA) | payer MEDICARE, SELFPAY | PROVIDERS: PCP Hospitalist; Visit Provider Psychiatry & Neurology Neurology | DX: G35 Multiple sclerosis (principal); H46.9 Unspecified optic neuritis | CPT/HCPCS: 99212 ==

== ENCOUNTER 2024-02-17 09:11 | Outpatient (AMB) | payer MEDICARE, SELFPAY ==
--- NOTE | 2024-02-17 09:25 | A.OFFPC_ITS ---
Vital Signs 02/17/24 09:27 Height 5 ft 2 in Weight 87 lb BMI 15.9 BP 98/54 L Blood Pressure Location Rt brachial Position Sitting Respiration 12 Pulse 70 Pulse Source Pulse Oximeter Temp 96.8 F Temp Source Tympanic Pulse Oximetry (%) 100 Oxygen Delivery Method Room Air Intake Visit Reasons: f/u chronic conditions Intake Note: follow up for medication continuation Allergies tetracycline Allergy (Mild, Verified 02/17/24 09:25) Rash Tobacco use date assessed: 09/10/23 Dental Screening Dental Screen Date: 09/10/23 HPI f/u chronic conditions HPI Details 64 y/o female presents to discuss chroni c conditions. Mammogram done 10/09/23 along with bone density test. Mammogram negative. Bone density test shows osteoporosis based on lowest T score value of -3.4. Mildly low vitamin D level and pt notes she has been taking vitamin d supplemen ts otc. She notes she has an appt. with MARCUS Angel Marks in February. HPI Comments History of Present Illness Details Documentation assistance for Goldy Slade MD, was provided by Luc Horton,? Cementer Machine Joiner on 02/17/2024 at 9:39 AM EST. I, Dr. Slade, have read, observed, and verified documentation. [facility] Medical History 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, secondary progressive Screening for osteoporosis Screening for cervical cancer Microalbuminuria Breast cancer screening by mammogram Nocturia Incomplete bladder emptying Hypothyroidism (acquired) Surgical History Hx of tonsillectomy Family History Family/Other Breast cancer Father Heart disease Brother Cancer of kidney Social History Household Members: Spouse Housing: House Alcohol intake: never Patient Tobacco Use Status: Never used Tobacco e-Cigarette/Vaping Use: Never Used Second Hand Smoke Exposure: No service: No Current occupational status: retired Current occupational exposures/hazards: No Sexual orientation: Straight/Heterosexual Gender identity: Female Cognitive needs: No Hearing needs: No Vision needs: Yes (Patient wears reading glasses.) Questionnaire Thrive Questionnaire Date Thrive assessed: 09/10/23 JAYLA-7 AMB Questionnaire JAYLA-7 Date JAYLA - 7 assessed: 09/10/23 Source: Developed by Drs. Gabriele Dominguez, Jolene Heredia, Hammad Hess and colleagues, with an educational starr from [employer]. Review of Systems Const Denies chills, Denies fatigue, Denies fever(s), Denies headache(s) and Denies weakness ENT Denies dizziness and Denies headache(s) Card Denies dyspnea Resp Denies cough, Denies dyspnea, Denies wheezing and Denies other (shortness of breath) Musc Denies numbness and Denies tingling Neuro Denies dizziness, Denies headache(s), Denies numbness, Denies tingling and Denies weakness Psych Denies anxiety and Denies depression Endo Denies fatigue Aller/Immun Denies wheezing Physical exam (Primary Care) Vital Signs: Last Vital Signs Temp 96.8 F 02/17/24 09:27 Pulse 70 02/17/24 09:27 Resp 12 02/17/24 09:27 BP 98/54 L 02/17/24 09:27 Pulse Ox 100 02/17/24 09:27 Oxygen Delivery Method Room Air 02/17/24 09:27 BMI result Body Mass Index 15.9 Tobacco/Smoking Status: Tobacco use Status Tobacco use date assessed 09/10/23 02/17/24 09:29 Patient Tobacco Use Status Never used Tobacco 02/17/24 09:29 e-Cigarette/Vaping Use Never Used 02/17/24 09:29 Thrive Assessment: Date of Thrive Assessment Date Thrive assessed 09/10/23 02/17/24 09:29 Const General: well developed; No acute distress Nutritional Appearance: underweight Orientation/consciousness: patient oriented x3 HENMT Head: Yes normocephalic and Yes atraumatic Eyes General: appearance normal, both eyes and all related structures Pupils: Equal, round and reactive pupils present EOM: EOMs intact bilaterally Resp Effort & Inspection: normal respiratory effort Auscultation: clear to auscultation bilaterally Cardio Rate: regular rate Rhythm: regular rhythm Heart sounds: S1 normal heart sound present, S2 normal heart sound present, no gallops, no murmurs and no rubs Neuro General: patient oriented x3 and gait normal Cranial nerves: Yes Equal, round and reactive pupils present Psych Affect: normal affect Assessment and Plan Assessment & Plan (1) Osteoporosis: Code(s): M81.0 - Age-related osteoporosis without current pathological fracture Plan: Patient?has?an?appointment?with?rheumatology Follow-up?with?rheumatology She?has?a?calcium?supplement?and?has?just?started?a?vitamin-D?supplement?as?well Will?recheck?labs?including?vitamin-D (2) Breast cancer screening by mammogram: Code(s): Z12.31 - Encounter for screening mammogram for malignant neoplasm of breast Plan: Mammogram?was?negative?for?malignancies Continue?annual?screen (3) Underweight: Code(s): R63.6 - Underweight Plan: Encouraged?increased?calories?and?protein She?has?an?appointment?with?Gastroenterology (4) Multiple sclerosis: Code(s): G35 - Multiple sclerosis Plan: Followed?by?neurology?at?[facility] [place]and?also?[place] Will?request?most?recent?note?from?specialist?at?[place] Recommended?physical?therapy- she?has?already?been?referred?by?her?neurologist?at?[place]. (5) Low vitamin D level: Code(s): R79.89 - Other specified abnormal findings of blood chemistry Plan: Vitamin-D?level?is?mildly?low.??Patient?also?has?osteoporosis She?has?started?a?vitamin-D?supplement Recheck?vitamin-D?level?and?if?still?low,?will?send?a?prescription (6) Screening for colon cancer: Code(s): Z12.11 - Encounter for screening for malignant neoplasm of colon Plan: Patient?has?an?appointment?with?Gastroenterology Plan Follow-up?in?late?August?for?Extended exam with f/u labs and health maint. 30 mins Orders: Orders Comprehensive [place]. Panel Fast 02/17/24 R63.6 - Underweight, Z00.00 - Encounter for general adult medical examination without abnormal findings Complete Blood Count Auto Diff 02/17/24 R63.6 - Underweight, Z00.00 - Encounter for general adult medical examination without abnormal findings Lipid Panel 02/17/24 R63.6 - Underweight, Z00.00 - Encounter for general adult medical examination without abnormal findings Triiodothyronine T3 Total 02/17/24 E03.9 - Hypothyroidism, unspecified, R63.6 - Underweight Thyroid Stimulating Hormone 02/17/24 E03.9 - Hypothyroidism, unspecified, R63.6 - Underweight UA and rflx microscopic 02/17/24 R63.6 - Underweight, Z00.00 - Encounter for general adult medical examination without abnormal findings Vitamin D 25-OH Total 02/17/24 E55.9 - Vitamin D deficiency, unspecified, R79.89 - Other specified abnormal findings of blood chemistry Microalbumin, Random (w Creat) 02/17/24 I10 - Essential (primary) hypertension, R63.6 - Underweight Free T4 (Free Thyroxine) 02/17/24 E03.9 - Hypothyroidism, unspecified, R63.6 - Underweight Vitamin B12 and Folate 02/17/24 E53.8 - Deficiency of other specified B group vitamins, G35 - Multiple sclerosis Coding Level of Care Code Est Pt Level 4 (98319) Diagnoses Osteoporosis M81.0 Breast cancer screening by mammogram Z12.31 Underweight R63.6 Multiple sclerosis G35 Low vitamin D level R79.89 Screening for colon cancer Z12.11
[2024-02-17 09:27] VITALS: BP 98/54; PULSE 70; RESP 12; TEMP 36; O2SAT 100; BMI 15.9
== END 2024-02-17 09:57 | disposition home or self-care (01) ==
PROVIDERS: PCP Family Medicine; Visit Provider Family Medicine
DX: M81.0 Age-related osteoporosis without current pathological fracture (principal); Z12.31 Encounter for screening mammogram for malignant neoplasm of breast; R63.6 Underweight; G35 Multiple sclerosis; R79.89 Other specified abnormal findings of blood chemistry; Z12.11 Encounter for screening for malignant neoplasm of colon
CPT/HCPCS: 99214

== ENCOUNTER 2024-04-14 10:53 | Outpatient (AMB) | payer MEDICARE, SELFPAY ==
--- NOTE | 2024-04-14 10:59 | A.OFFVIS_ITS ---
Vital Signs 04/14/24 11:02 Height 5 ft 0.63 in Weight 88 lb 2.958 oz BMI 16.9 BP 96/52 L Blood Pressure Location Rt brachial Position Sitting Pulse 76 Pulse Source Pulse Oximeter Intake Visit Reasons: Osteoporosis/CM Intake Note: Patient is a new patient internally referred by her [employer] for age-related osteoporosis. Patient reports she is taking Vitamin D 3 1200. I was only able to find 1,000, 2,000 or 1,250 units in medication. 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 Required: No Accompanied by: Self / Same As Patient Allergies tetracycline Allergy (Mild, Verified 04/14/24 11:03) Rash Medication List - Last Reconciled 04/14/24 by Opal Joyce MD calcium citrate 200 mg PO DAILY cholecalciferol (vitamin D3) 125 mcg PO DAILY 90 days cyanocobalamin (vitamin B-12) (B-12 DOTS) 2,000 mcg PO DAILY estradiol 0.01%(0.1mg/gram) (Estrace) 0.25 appful vaginal 2XW 90 days [id number] pr con 15 billion cell-170 mg (Ultra Donna Plus) caps PO levothyroxine 100 mcg PO DAILY potassium gluconate 595 mg PO DAILY venlafaxine ER 75 mg PO BID HPI Comments Details: Patient is a 64-year-old female with secondary progressive multiple sclerosis (previously on avenex), subclinical hypothyroidism on levothyroxine and depression who presents for evaluation of osteoporosis Risk Factor Assessment: * Advanced age: 64 * Race: * Female sex * Menarche: 15/14 years. Menopause: 49 years * No known family history of osteoporosis or hip fractures. Mother has a history of falling with subsequent wrist fracture. * Never been * Calcium/vitamin-D intake: Eats yogurt every day with a protein powder. Does not like milk. 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 [place] * Cigarette smoking: Never smoker * Excessive alcohol: Does not drink alcohol * Excessive caffeine: Takes 1 caffeine pill per day High-risk medication assessment: Has a history of glucocorticoid use with MS flares Also takes venlafaxine for several years Does have balance issues due to MS and has fallen but no broken bones [facility] Medical History 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, secondary progressive Screening for osteoporosis Screening for cervical cancer Microalbuminuria Breast cancer screening by mammogram Nocturia Incomplete bladder emptying Hypothyroidism (acquired) Surgical History Hx of tonsillectomy Family History Family/Other Breast cancer Father Heart disease Brother Cancer of kidney Social History Household Members: Spouse Housing: House Alcohol intake: never Patient Tobacco Use Status: Never used Tobacco e-Cigarette/Vaping Use: Never Used Second Hand Smoke Exposure: No service: No Current occupational status: retired Current occupational exposures/hazards: No Sexual orientation: Straight/Heterosexual Gender identity: Female Cognitive needs: No Hearing needs: No Vision needs: Yes (Patient wears reading glasses.) Review of Systems Const All systems reviewed & are unremarkable except as noted in HPI and below Physical Exam Vital Signs: BMI result Body Mass Index 16.9 Results Reviewed Results Reviewed: DEXA 10/09/23 FINDINGS: LEFT FEMUR, NECK: BMD 0.575 g/cm2, Z-score -1.3, T-score -3.3, osteoporosis. LEFT FEMUR, TOTAL: BMD 0.577 g/cm2, Z-score -1.6, T-score -3.4, osteoporosis. AP SPINE L1-L4: BMD 0.859 g/cm2, Z-score -0.3, T-score -2.7, osteoporosis. Laboratory Tests 09/01/23 09/15/23 09:35 12:05 Sodium 139 Potassium 4.7 Chloride 105 Carbon Dioxide 29 BUN 19 H Creatinine 0.64 25-OH Vitamin D Total 23 L Assessment & Plan Assessment & Plan (1) Osteoporosis: Code(s): M81.0 - Age-related osteoporosis without current pathological fracture Category: Medical Qualifiers: Osteoporosis type: age-related Presence of current pathological fracture: without current pathological fracture Qualified Code(s): M81.0 - Age- related osteoporosis without current pathological fracture Plan: #Age related osteoporosis without fractures Patient with age-related osteoporosis. Risk factors include history of steroid use for her multiple sclerosis, race, age. Given her significant osteoporosis recommending Prolia injections. We will also give her calcium and vitamin-D supplementation. Her last vitamin-D was low. We will see again in 1 month to give injection. (2) Low vitamin D level: Code(s): R79.89 - Other specified abnormal findings of blood chemistry Category: Medical Plan: #Vitamin D deficiency Calcium and vitamin-D supplementation added. Plan Insert tab,I spent 30 minutes reviewing the record and labs, seeing the patient, discussing the treatment plan and documenting in the medical record ? For next visit: * Give Prolia Orders: Orders Comprehensive Met. Panel Today M81.0 - Age-related osteoporosis without current pathological fracture, R79.89 - Other specified abnormal findings of blood chemistry Vitamin D 25-OH Total Today M81.0 - Age-related osteoporosis without current pathological fracture, R79.89 - Other specified abnormal findings of blood chemistry Parathyroid Hormone Intact Today M81.0 - Age-related osteoporosis without current pathological fracture, R79.89 - Other specified abnormal findings of blood chemistry Medications: New denosumab (Prolia) 60 mg subcut [id number] 6 months 1 mL 1RF M81.0 - Age-related osteoporosis without current pathological fracture calcium carbonate-vitamin D3 600 mg-62.5 mcg (2,500 unit) 1 cap PO DAILY 90 days 90 caps 1RF M81.0 - Age-related osteoporosis without current pathological fracture, R79.89 - Other specified abnormal findings of blood chemistry Coding Level of Care Code New Pt Level 3 (12078) Diagnoses Age-related osteoporosis without current pathological fracture M81.0 Osteoporosis type: age-related Presence of current pathological fracture: without current pathological fracture Low vitamin D level R79.89
[2024-04-14 11:02] VITALS: BP 96/52; PULSE 76; BMI 16.9
== END 2024-04-14 11:41 | disposition home or self-care (01) ==
PROVIDERS: PCP Family Medicine; Visit Provider Student in an Organized Health Care Education/Training Program
DX: M81.0 Age-related osteoporosis without current pathological fracture (principal); R79.89 Other specified abnormal findings of blood chemistry
CPT/HCPCS: 99203

== ENCOUNTER → 2024-04-14 10:53 | Outpatient (BNVA) | payer MEDICARE, SELFPAY | PROVIDERS: PCP Family Medicine; Visit Provider Student in an Organized Health Care Education/Training Program | DX: M81.0 Age-related osteoporosis without current pathological fracture (principal); E55.9 Vitamin D deficiency, unspecified; G35 Multiple sclerosis; Z79.899 Other long term (current) drug therapy | CPT/HCPCS: 99202 ==

== ENCOUNTER 2024-04-14 11:47 | Outpatient (REF) | payer MEDICARE, SELFPAY ==
[2024-04-14 14:20] LABS: Parathyroid Hormone Intact 51.6 pg/mL (8.7-77.1)
[2024-04-14 14:21] LABS: Alanine Aminotransferase 26 U/L (0-31); Albumin Level 4.2 g/dL (3.5-5.0); Alkaline Phosphatase 63 U/L (39-117); Anion Gap 10 (12-20); Aspartate Amino Transferase 32 U/L (5-31); Bilirubin Total 0.3 mg/dL (0.0-1.0); Blood Urea Nitrogen 22 mg/dL (9-16); Calcium 9.8 mg/dL (8.4-10.2); Carbon Dioxide 29 mmol/L (22-29); Chloride 104 mmol/L (96-108); Estimated Glomerular Filt Rate > 60; Glucose Random 90 mg/dL (60-115); Potassium 4.2 mmol/L (3.3-5.1); Sodium 139 mmol/L (135-145); Total Protein 7.2 g/dL (6.5-8.0)
[2024-04-14 14:36] LABS: Vitamin D 25-OH Total 89.1 ng/mL (>30)
== END 2024-04-14 11:48 | disposition home or self-care (01) ==
LOC: HO.10HDL 11:47
PROVIDERS: Visit Provider Student in an Organized Health Care Education/Training Program
DX: M81.0 Age-related osteoporosis without current pathological fracture (principal); E55.9 Vitamin D deficiency, unspecified
CPT/HCPCS: 36415; 80053; 82306; 83970

== ENCOUNTER 2024-05-17 10:10 | Outpatient (AMB) | payer MEDICARE, SELFPAY ==
[2024-05-17 10:13] VITALS: BP 98/62; PULSE 75; O2SAT 99; BMI 17.0
--- NOTE | 2024-05-17 10:13 | MHC.OFFVIS ---
Vital Signs 05/17/24 10:13 Height 5 ft 0.63 in Weight 89 lb 1.068 oz BMI 17.0 BP 98/62 Blood Pressure Location Rt brachial Position Sitting Pulse 75 Pulse Source Pulse Oximeter Pulse Oximetry (%) 99 Oxygen Delivery Method Room Air Intake Visit Reasons: follow up/cm Intake Note: Patient presents today for follow up on osteoporosis and low vitamin D levels, and lab review. Allergies tetracycline Allergy (Mild, Verified 05/17/24 10:17) Rash Medication List - Last Reconciled 05/17/24 by Opal Joyce MD calcium carbonate-vitamin D3 600 mg-62.5 mcg (2,500 unit) 1 cap PO DAILY 90 days cyanocobalamin (vitamin B-12) (B-12 DOTS) 2,000 mcg PO DAILY denosumab (Prolia) 60 mg subcut [id number] 6 months estradiol 0.01%(0.1mg/gram) (Estrace) 0.25 appful vaginal 2XW 90 days jrkamuoi-xzlmeoedc-uovt pr con 15 billion cell-170 mg (Ultra Donna Plus) caps PO levothyroxine 100 mcg PO DAILY potassium gluconate 595 mg PO DAILY venlafaxine ER 75 mg PO BID HPI Comments Details: Patient is a 64-year-old female with secondary progressive multiple sclerosis (previously on avenex), subclinical hypothyroidism on levothyroxine and depression here today for follow up of osteoporosis Interval History: Patient here today for Prolia injection. No falls no fractures. Rheumatologic History: Presented 03/2024 for evaluation of low bone density. Risk Factor Assessment: Advanced age: 64 Race: Female sex Menarche: 15/14 years. Menopause: 49 years No known family history of osteoporosis or hip fractures. Mother has a history of falling with subsequent wrist fracture. Never been Calcium/vitamin-D intake: Eats yogurt every day with a protein powder. Does not like milk. 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 [place] Cigarette smoking: Never smoker Excessive alcohol: Does not drink alcohol Excessive caffeine: Takes 1 caffeine pill per day High-risk medication assessment: Has a history of glucocorticoid use with MS flares Also takes venlafaxine for several years Does have balance issues due to MS and has fallen but no broken bones [facility] Medical History 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, secondary progressive Screening for osteoporosis Screening for cervical cancer Microalbuminuria Breast cancer screening by mammogram Nocturia Incomplete bladder emptying Hypothyroidism (acquired) Surgical History Hx of tonsillectomy Family History Family/Other Breast cancer Father Heart disease Brother Cancer of kidney Social History Household Members: Spouse Housing: House Alcohol intake: never Patient Tobacco Use Status: Never used Tobacco e-Cigarette/Vaping Use: Never Used Second Hand Smoke Exposure: No service: No Current occupational status: retired Current occupational exposures/hazards: No Sexual orientation: Straight/Heterosexual Gender identity: Female Cognitive needs: No Hearing needs: No Vision needs: Yes (Patient wears reading glasses.) Review of Systems Const Details: Review of Systems Constitutional: Denies fever, chills, weight loss ENT: Denies vision changes, eye pain or eye redness, dental caries, dry mouth GI: Denies nausea, vomiting, diarrhea, abdominal pain, change in BM Pulm: Denies SOB, CAPONE, hemoptysis, wheezing Cards: Denies chest pain, palpitations Skin: Denies Raynaud's, rash, nail changes, photosensitivity, FINANCIAL ADMINISTRATIVE ASSISTANT: Denies headaches, weakness, paresthesias, recurrent falls MSK: as per HPI All other systems reviewed and are unremarkable except noted above Physical Exam Vital Signs: Last Vital Signs Pulse 75 05/17/24 10:13 BP 98/62 05/17/24 10:13 Pulse Ox 99 05/17/24 10:13 Oxygen Delivery Method Room Air 05/17/24 10:13 BMI result Body Mass Index 17.0 Physical Examination CONSTITUITIONAL Patient alert and cooperative. Well appearing and in no apparent painful distress HEENT Conjunctiva and sclera clear. ?Pupils equal round and reactive to light. ?No lymphadenopathy. ?No oral or nasal ulcers noted. No evidence of discoid rash to the karishma of ears CHEST/RESPIRATORY SYSTEM Normal respiratory effort and able to speak in complete sentences. ?Clear to auscultation bilaterally. ?No crackles, rales, rhonchi, wheezes heard. CARDIAC SYSTEM Regular rate and rhythm. ?S1 and S2 heard no murmurs. ?Radial pulses intact bilaterally MSK Hands: ?Good ship surveyor strength bilaterally - 5/5. ?No deformities noted. ?No synovitis noted to the MCPs, PIPs or DIPs. ?No tenderness to palpation of these joints. Wrists: ?Full range of motion at the wrists without pain. ?No tenderness to palpation or synovitis noted to the wrists. Elbows: Full range of motion without pain. No tenderness, weakness, swelling, increased warmth or erythema. Shoulders: Full range of motion without pain. No tenderness, weakness, swelling, increased warmth or erythema. Knees: ?Full range of motion. ?No tenderness, swelling, increased warmth or erythema.?No effusion or crepitations SKIN Skin intact without rashes. Office Meds Prolia 60 mg/mL subcutaneous syringe Performing Provider: Opal Joyce MD Performing Location: [facility] [place] Rheumatology Administered by: Opal Joyce MD on 05/17/24 10:42 Dose Route Admin Location Dispensed Lot Number Expiration Date [facility] [employer] 60 mg subcut 1 mL [id number] 08/19/26 18002-617-09 AMGEN Results Reviewed Results Reviewed: Laboratory Tests 04/14/24 11:54 Sodium 139 Potassium 4.2 Chloride 104 Carbon Dioxide 29 BUN 22 H Creatinine 0.68 AST 32 H ALT 26 Alkaline Phosphatase 63 25-OH Vitamin D Total 89.1 PTH Intact 51.6 Assessment & Plan Assessment & Plan (1) Osteoporosis: Code(s): M81.0 - Age-related osteoporosis without current pathological fracture Category: Medical Qualifiers: Osteoporosis type: age-related Presence of current pathological fracture: without current pathological fracture Qualified Code(s): M81.0 - Age-related osteoporosis without current pathological fracture Plan: #Age related osteoporosis without fractures Patient with age-related osteoporosis. Risk factors include history of steroid use for her multiple sclerosis, race, age. Labs including vitamin-D were within range. Received Prolia injection today without issue. Patient would like to give the injections to herself at home. We will still see her every 6 months just to check in (2) Low vitamin D level: Code(s): R79.89 - Other specified abnormal findings of blood chemistry Category: Medical Plan: #Vitamin D deficiency Calcium and vitamin-D supplementation added. Plan I spent 20 minutes reviewing the record and labs, seeing the patient, discussing the treatment plan and documenting in the medical record Orders: Orders AMB Denosumab Injection Patient Supplied Today M81.0 - Age-related osteoporosis without current pathological fracture Medications: New Prolia (denosumab) 60 mg subcut ONCE 1 mL 0RF NS M81.0 - Age-related osteoporosis without current pathological fracture Coding Level of Care Code Est Pt Level 3 (28024) Diagnoses Age-related osteoporosis without current pathological fracture M81.0 Osteoporosis type: age-related Presence of current pathological fracture: without current pathological fracture Low vitamin D level R79.89
== END 2024-05-17 10:37 | disposition home or self-care (01) ==
PROVIDERS: PCP Family Medicine; Visit Provider Student in an Organized Health Care Education/Training Program
DX: M81.0 Age-related osteoporosis without current pathological fracture (principal); R79.89 Other specified abnormal findings of blood chemistry
CPT/HCPCS: 99213

== ENCOUNTER → 2024-05-17 10:10 | Outpatient (BNVA) | payer MEDICARE, SELFPAY | PROVIDERS: PCP Family Medicine; Visit Provider Student in an Organized Health Care Education/Training Program | DX: M81.0 Age-related osteoporosis without current pathological fracture (principal); E55.9 Vitamin D deficiency, unspecified; Z78.0 Asymptomatic menopausal state | CPT/HCPCS: 96372; 99212; J0897 ==

== ENCOUNTER 2024-05-17 10:42 | Outpatient (REF) | payer MEDICARE, SELFPAY ==
[2024-05-17 13:01] LABS: MANUAL DIFF FLAG NO
[2024-05-17 13:06] LABS: Basophils Absolute Auto 0.1 X10*3/uL (0.0-0.2); Eosinophils Absolute Auto 0.1 X10*3/uL (0.0-0.4); Hematocrit 40.1 % (37.0-47.0); Hemoglobin 13.4 g/dl (12.0-16.0); Imm Gran Abs Auto 0.01 X10*3/uL (0.00-0.03); Imm Gran Pct Auto 0.2 % (0.0-0.4); Lymphocytes Absolute Auto 1.5 X10*3/uL (1.2-4.9); Lymphocytes Percent Auto 25.4 % (20-40); Mean Corpuscular HGB Conc 33.4 g/dl (31.0-35.0); Mean Corpuscular Hemoglobin 30.5 pg (27.0-33.0); Mean Corpuscular Volume 91.1 fL (80.0-98.0); Mean Platelet Volume 9.4 fL (9.4-12.3); Monocytes Absolute Auto 0.5 X10*3/uL (0.1-1.2); Neutrophils Absolute Auto 3.8 x10*3/uL (2.0-8.3); Neutrophils Percent Auto 63.4 % (45-73); Platelet Count 404 X10*3/uL (160-400); Red Cell Distribution Width 11.6 % (11.0-16.0)
[2024-05-17 13:45] LABS: Thyroid Stimulating Hormone 1.22 uIU/mL (0.32-4.0); Vitamin D 25-OH Total 89.8 ng/mL (>30)
[2024-05-17 13:56] LABS: Vitamin B12 > 2000 pg/mL (200-900)
== END 2024-05-17 10:43 | disposition home or self-care (01) ==
LOC: HO.10HDL 10:42
PROVIDERS: Visit Provider Student in an Organized Health Care Education/Training Program
DX: G35 Multiple sclerosis (principal)
CPT/HCPCS: 36415; 82306; 82607; 84443; 85025

== ENCOUNTER 2024-05-30 10:55 | Outpatient (AMB) | payer MEDICARE, SELFPAY ==
--- NOTE | 2024-05-30 11:06 | MHC.OFFVIS ---
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 Last mammogram was [facility]-RADS 1 in 10/13 [facility] Medical History 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, secondary progressive Screening for osteoporosis Screening for cervical cancer Microalbuminuria Breast cancer screening by mammogram Nocturia Incomplete bladder emptying Hypothyroidism (acquired) Surgical History Hx of tonsillectomy Family History Family/Other Breast cancer Father Heart disease Brother Cancer of kidney Social History Household Members: Spouse Housing: House Alcohol intake: never Patient Tobacco Use Status: Never used Tobacco e-Cigarette/Vaping Use: Never Used Second Hand Smoke Exposure: No service: No Current occupational status: retired Current occupational exposures/hazards: No Sexual orientation: Straight/Heterosexual Gender identity: Female Cognitive needs: No Hearing needs: No Vision needs: Yes (Patient wears reading glasses.) Review of Systems Const All systems reviewed & are unremarkable except as noted in HPI and below Physical Exam Vital Signs: Last Vital Signs BP 96/58 L 05/30/24 11:10 General: Yes no CVA tenderness External Female Exam: normal external appearance and normal appearance of the urethra Speculum Exam - Vagina: normal appearance of the vagina, normal palpation, no lesions and no masses Speculum Exam - Cervix: normal appearance of the cervix, normal palpation, no lesions, no masses and nontender Bimanual exam- vagina & uterus: normal bimanual exam, normal palpation, uterine size normal, normal palpation, uterine shape normal, No Cervical tenderness present and non-tender Bimanual Exam- Adnexa, other: normal adnexae Back/Spine/Pelvis Back: no CVA tenderness Assessment & Plan Assessment & Plan (1) Atrophic vaginitis: Code(s): N95.2 - Postmenopausal atrophic vaginitis Category: Medical Plan: Vaginal estrogen cream recommended loading dose daily half an applicator for 2 weeks then cut down to 2 to 3 times a week titrate as needed. All questions answered, the patient verbalized understanding. Medications: Changed From estradiol 0.01%(0.1mg/gram) (Estrace) Use quarter of an applicator twice a week for 90 days 0.25 appful vaginal 2XW 90 days 42.5 grams 0RF To estradiol 0.01%(0.1mg/gram) (Estrace) Use half an applicator daily for 2 weeks then 2-3 times a week for maintenance 0.5 appful vaginal 3XW 90 days 42.5 grams 3RF Coding Level of Care Code Est Pt Level 3 (76434) Diagnoses Atrophic vaginitis N95.2
[2024-05-30 11:10] VITALS: BP 96/58
--- OUTSIDE RECORDS SUMMARY | 2024-06-01 14:51 | XMS_ITS ---
Author Name [facility] Organization Unknown History of Medication Use Medication Directions Dispensed Refills Start Date End Date Stat estradiol (ESTRACE) 0.1 MG/GM vaginal cream USE 0.25 APPLICATORFUL ONE QUARTER APPLICATOR) VAGINALLY 2 TIMES A WEEK 02/21/2024 active levothyroxine (SYNTHROID) tablet 100 mcg TAKE ONE TABLET BY MOUTH EVERY DAY 02/21/2024 active venlafaxine (EFFEXOR-XR) 75 MG 24 hr capsule Take 1 capsule (75 mg total) by mouth 2 (two) times a day. 02/21/2024 active dalfampridine ER (AMPYRA) 10 MG 12 hr tablet Take 1 tablet (10 mg total) by mouth every 12 (twelve) hours. 02/21/2024 active Problems Problem Status Onset Date Problem Type Date of Resoluti on Source Multiple sclerosis (HCC) active EncounterDiagnosisAct CTTHNE MG
== END 2024-05-30 11:37 | disposition home or self-care (01) ==
LOC: HO.HWS 10:55
PROVIDERS: PCP Family Medicine; Visit Provider Obstetrics & Gynecology
DX: N95.2 Postmenopausal atrophic vaginitis (principal)
CPT/HCPCS: 99213

== ENCOUNTER → 2024-05-30 10:55 | Outpatient (BNVA) | payer MEDICARE, SELFPAY | PROVIDERS: PCP Family Medicine; Visit Provider Obstetrics & Gynecology | DX: N95.2 Postmenopausal atrophic vaginitis (principal) | CPT/HCPCS: 99212 ==

== ENCOUNTER 2024-09-08 07:39 | Outpatient (REF) | payer MEDICARE, SELFPAY ==
[2024-09-08 11:35] LABS: MANUAL DIFF FLAG NO
[2024-09-08 11:44] LABS: Basophils Absolute Auto 0.1 X10*3/uL (0.0-0.2); Basophils Percent Auto 1.1 % (0-2); Eosinophils Absolute Auto 0.1 X10*3/uL (0.0-0.4); Eosinophils Percent Auto 3.1 % (0-4); Hematocrit 41.2 % (37.0-47.0); Hemoglobin 13.4 g/dl (12.0-16.0); Imm Gran Abs Auto 0.03 X10*3/uL (0.00-0.03); Imm Gran Pct Auto 0.7 % (0.0-0.4); Lymphocytes Absolute Auto 1.1 X10*3/uL (1.2-4.9); Lymphocytes Percent Auto 23.9 % (20-40); Mean Corpuscular HGB Conc 32.5 g/dl (31.0-35.0); Mean Corpuscular Hemoglobin 29.8 pg (27.0-33.0); Mean Corpuscular Volume 91.8 fL (80.0-98.0); Mean Platelet Volume 9.1 fL (9.4-12.3); Monocytes Absolute Auto 0.5 X10*3/uL (0.1-1.2); Monocytes Percent Auto 10.5 % (2-11); Neutrophils Absolute Auto 2.8 x10*3/uL (2.0-8.3); Neutrophils Percent Auto 60.7 % (45-73); Platelet Count 370 X10*3/uL (160-400); Red Blood Count 4.49 X10*6/uL (4.20-5.50); Red Cell Distribution Width 12.2 % (11.0-16.0); White Blood Count 4.6 X10*3/uL (4.8-10.8)
[2024-09-08 12:14] LABS: Appearance Urine Clear; Color Urine Yellow; Glucose Urine UA Negative (Negative); Leukocyte Esterase Urine Small (1+) (Negative); Nitrite Urine Negative (Negative); UMIC TRIGGER UA YES; Urine Blood Negative (Negative); Urine Ketones Negative (Negative); Urine Protein Negative (Neg-Trace)
[2024-09-08 12:21] LABS: Alanine Aminotransferase 31 U/L (0-31); Albumin Level 4.1 g/dL (3.5-5.0); Alkaline Phosphatase 74 U/L (39-117); Anion Gap 8 (12-20); Aspartate Amino Transferase 34 U/L (5-31); Bilirubin Total 0.2 mg/dL (0.0-1.0); Blood Urea Nitrogen 22 mg/dL (9-16); Carbon Dioxide 28 mmol/L (22-29); Chloride 107 mmol/L (96-108); Cholesterol 189 mg/dL (<200); Estimated Glomerular Filt Rate > 60; Free T4 (Free Thyroxine) 1.14 ng/dL (0.71-1.85); Glucose Fasting 88 mg/dL (60-99); HDL Cholesterol 67 mg/dL (>40); LDL Cholesterol Calculated 108 mg/dL (<100); Potassium 4.3 mmol/L (3.3-5.1); Sodium 139 mmol/L (135-145); Thyroid Stimulating Hormone 1.64 uIU/mL (0.32-4.0); Total Protein 7.6 g/dL (6.5-8.0); Triglycerides 74 mg/dL (<150); Vitamin D 25-OH Total 59.7 ng/mL (>30)
[2024-09-08 12:23] LABS: Bacteria Urine None Seen (None Seen); Hyaline Casts Urine 0-2 /LPF (0-2); RBC Urine 0-2 /HPF (0-2)
[2024-09-08 12:25] LABS: Folate 10.8 ng/mL (> or = 4.0); Vitamin B12 1822 pg/mL (200-900)
[2024-09-08 12:41] LABS: Creatinine Urine 72.68 mg/dL; Microalbum/Creatinine Ratio Ur 19.2 ug/mg cr (<30)
[2024-09-09 08:53] LABS: Triiodothyronine T3 Total 92 ng/dL (76-181)
== END 2024-09-08 07:40 | disposition home or self-care (01) ==
LOC: HO.WFDLDS 07:39
PROVIDERS: Visit Provider Family Medicine
DX: Z00.00 Encounter for general adult medical examination without abnormal findings (principal); R63.6 Underweight; E03.9 Hypothyroidism, unspecified; I10 Essential (primary) hypertension; E55.9 Vitamin D deficiency, unspecified; R79.89 Other specified abnormal findings of blood chemistry; E53.8 Deficiency of other specified B group vitamins; G35 Multiple sclerosis
CPT/HCPCS: 36415; 80053; 80061; 81001; 81003; 82043; 82306; 82570; 82607; 82746; 84439; 84443; 84480; 85025

== ENCOUNTER 2024-09-13 08:55 | Outpatient (AMB) | payer MEDICARE, SELFPAY ==
--- NOTE | 2024-09-13 09:05 | MHC.PC.OV ---
Vital Signs 09/13/24 09:08 Height 5 ft 0.63 in Weight 88 lb 2 oz BMI 16.9 BP 100/60 Blood Pressure Location Lt brachial Position Sitting Respiration 14 Pulse 85 Pulse Source Pulse Oximeter Temp 98.8 F Temp Source Oral Pulse Oximetry (%) 98 Oxygen Delivery Method Room Air Intake Visit Reasons: Extended exam with f/u labs and health maint. 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 Required: No Is last menstrual period known: No Post menopausal: Yes Patient : No Allergies tetracycline Allergy (Mild, Verified 09/13/24 09:07) Rash Medication List - Last Reconciled 09/13/24 by Goldy Slade MD calcium carbonate-vitamin D3 600 mg-62.5 mcg (2,500 unit) 1 cap PO DAILY 90 days cyanocobalamin (vitamin B-12) (B-12 DOTS) 2,000 mcg PO DAILY denosumab (Prolia) 60 mg subcut [id number] 6 months estradiol 0.01%(0.1mg/gram) (Estrace) 0.5 appful vaginal 3XW 90 days dkhukqiv-habqigytd-amsp pr con 15 billion cell-170 mg (Ultra Donna Plus) caps PO levothyroxine 100 mcg PO DAILY potassium gluconate 595 mg PO DAILY venlafaxine ER 75 mg PO BID Tobacco use date assessed: 09/10/23 Dental Screening Dental Screen Date: 09/10/23 HPI Extended exam with f/u labs and health maint. HPI Details 64 y/o female presents for a CPE with f/u labs and health maintenance. Labs drawn 09/08/24. Reviewed labs with pt. Elevated AST of 34. Triglycerides 74. TC 187. LDL 108. HDL 67. Hx of osteoporosis. Has received her Prolia shot from her model maker last year. HPI Comments History of Present Illness Details Documentation assistance for Goldy Slade MD, was provided by Luc Horton,? Tracing Lathe Set Up Operator on 09/13/2024 at 9:32 AM RHONDA. I, Dr. Slade, have read, observed, and verified documentation. ?? PFSH Medical History 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, secondary progressive Screening for osteoporosis Screening for cervical cancer Microalbuminuria Breast cancer screening by mammogram Nocturia Incomplete bladder emptying Hypothyroidism (acquired) Surgical History Hx of tonsillectomy Family History Family/Other Breast cancer Father Heart disease Brother Cancer of kidney Social History Household Members: Spouse Housing: House Alcohol intake: never Patient Tobacco Use Status: Never used Tobacco e-Cigarette/Vaping Use: Never Used Second Hand Smoke Exposure: No service: No Current occupational status: retired Current occupational exposures/hazards: No Sexual orientation: Straight/Heterosexual Gender identity: Female Cognitive needs: No Hearing needs: No Vision needs: Yes (Patient wears reading glasses.) Questionnaire PHQ-9 Over the last 2 weeks, how often have you been bothered by any of the following problems? 1. Little interest or pleasure in doing things: several days 2. Feeling down, depressed, or hopeless: several days 3. Trouble falling or staying asleep, or sleeping too much: not at all 4. Feeling tired or having little energy: several days 5. Poor appetite or overeating: not at all 6. Feeling bad about yourself - or that you are a failure or have let yourself or your family down: several days 7. Trouble concentrating on things, such as reading the newspaper or watching television: not at all 8. Moving or speaking so slowly that other people could have noticed. Or the opposite - being so fidgety or restless that you have been moving around a lot more than usual: not at all 9. Thoughts that you would be better off or of hurting yourself in some way: not at all Total score: 4 Depression Screening Interpretation: Negative Depression Screening Done: Yes 10297 - PHQ-9 Billing: Yes Source: Developed by Drs. Gabriele Dominguez, Jolene Heredia, Hammad Hess and colleagues, with an educational starr from [employer]. Thrive Questionnaire Date Thrive assessed: 09/13/24 I am a: Patient What is your living situation today?: I have a steady place to live Within the past 12 months, did the food you bought not last and you didn't have the money to get more?: Never true Within the past 12 months, did you worry whether your food would run out before you got money to buy more?: Never true Do you have trouble paying for medicines?: No Do you have trouble getting transportation to medical appointments?: No Do you have trouble paying your heating and electricity bill?: No Do you have trouble taking care of your child, family member or friend?: No Do you have trouble with day-to-day activities such as bathing, preparing meals, shopping, managing finances, etc.?: No Are you currently unemployed and looking for a job?: No Are you interested in more education?: No Please select the resources that you would like help with: None Currently or been in a relationship where the following occur: No concerns reported THRIVE Score: 0 AUDIT C Alcohol Use Questionnaire (AUDIT-C) 1. How often do you have a drink containing alcohol?: Never 3. How often do you have six or more drinks on one occasion?: Never Total Score: 0 Score Reviewed/Action Taken: Yes JAYLA-7 AMB Questionnaire JAYLA-7 Date JAYLA - 7 assessed: 09/13/24 Feeling nervous, anxious, or on edge: 0 = Not at all Not being able to stop or control worryin = Not at all Worrying too much about different things: 1 = Several days Trouble relaxin = Not at all Being so restless that it is hard to sit still: 0 = Not at all Becoming easily annoyed or irritable: 0 = Not at all Feeling afraid as if something awful might happen: 0 = Not at all Total JAYLA-7 score (0-4 normal; 5-9 mild; 10-14 moderate; 15-21 severe): 1 Source: Developed by Drs. Gabriele Dominguez, Jolene Heredia, Hammad Hess and colleagues, with an educational starr from [employer]. JAYLA-7 Assessment Billing JAYLA-7 Assessment Tool: JAYLA-7 Assessment 18055 Review of Systems Const Denies chills, Denies fatigue, Denies fever(s), Denies headache(s) and Denies weakness Eyes Denies change in vision ENT Denies dizziness, Denies headache(s), Denies hearing loss, Denies nasal congestion, Denies sinus pain, Denies sinus pressure and Denies sore throat Card Denies chest pain, Denies lightheadedness, Denies dyspnea and Denies other (palpitations) Resp Denies cough, Denies dyspnea and Denies wheezing GI Denies abdominal pain, Denies melena, Denies hematochezia, Denies change in bowel habits, Denies dyspepsia and Denies nausea Denies hematuria and Denies dysuria Musc Denies abnormal gait, Denies myalgias, Denies arthralgias, Denies numbness and Denies tingling Skin/Breast Denies rash, Denies unusual bruising and Denies wounds Neuro Denies abnormal gait, Denies dizziness, Denies headache(s), Denies memory loss, Denies numbness, Denies Sensory deficit (Neuro), Denies tingling and Denies weakness Psych Denies anxiety, Denies depression and Denies memory loss Endo Denies cold intolerance, Denies fatigue, Denies heat intolerance, Denies polydipsia and Denies polyuria Ankur/Lymph Denies easy bleeding and Denies easy bruising Aller/Immun Denies wheezing Physical exam (Primary Care) Vital Signs: Last Vital Signs Temp 98.8 F 09/13/24 09:08 Pulse 85 09/13/24 09:08 Resp 14 09/13/24 09:08 BP 100/60 09/13/24 09:08 Pulse Ox 98 09/13/24 09:08 Oxygen Delivery Method Room Air 09/13/24 09:08 BMI result Body Mass Index 16.9 Tobacco/Smoking Status: Tobacco use Status Tobacco use date assessed 09/10/23 09/13/24 09:11 Patient Tobacco Use Status Never used Tobacco 09/13/24 09:11 e-Cigarette/Vaping Use Never Used 09/13/24 09:11 PHQ-9: PHQ-9 Score PHQ-9: Total score 4 09/13/24 09:14 Depression Screening Interpretation: Negative Thrive Assessment: Date of Thrive Assessment Date Thrive assessed 09/13/24 09/13/24 09:11 Currently or been in a relationship where the following occur: No concerns reported Const General: no acute distress, well developed, alert and awake Nutritional Appearance: well nourished and underweight Orientation/consciousness: patient oriented x3 HENMT Head: Yes normocephalic and Yes atraumatic Ears: hearing grossly normal bilaterally and TM's normal bilaterally General nose exam: Normal external nose present and Normal nares present Mouth: Normal oral and palatal mucosa present and moist mucous membranes Teeth and gingiva: dentition normal Throat: Yes posterior oropharynx normal Eyes General: appearance normal, both eyes and all related structures Pupils: Equal, round and reactive pupils present and Pupil accommodation reflex normal EOM: EOMs intact bilaterally Neck Neck: Yes normal visual inspection, Yes no lymphadenopathy and Yes trachea midline Thyroid: Thyroid normal Carotids: no bruits Lymphatic: no lymphadenopathy noted Chest Chest palpation & inspection: normal inspection of the chest Resp Effort & Inspection: normal respiratory effort Auscultation: clear to auscultation bilaterally Cardio Rate: regular rate Rhythm: regular rhythm Heart sounds: S1 normal heart sound present, S2 normal heart sound present, no gallops, no murmurs and no rubs Bruits: no abdominal aortic bruits and no carotid bruits GI Palpation (GI): No Abdominal aortic bruit present, Soft to palpation, nontender, No hepatosplenomegaly present and No Rebound tenderness present Auscultation: normal bowel sounds General: Yes no CVA tenderness Back/Spine/Pelvis Back: no CVA tenderness Cervical Spine: cervical ROM normal and No Cervical spine tenderness Thoracic/Lumbar Spine: thoraco-lumbar ROM normal, No pain with thoraco-lumbar ROM, No thoracic spinal tenderness and No lumbar spinal tenderness Skin Lesions: no lesions Rashes: no rashes Trauma: no lacerations or abrasions Wounds: no wounds Nails: normal Neuro General: patient oriented x3 Cranial nerves: Yes Equal, round and reactive pupils present Cognition (Neuro): normal cognition Gait exam (Neuro): Normal gait present Motor exam (neuro): 5/5 motor strength present throughout Sensory Exam: No Sensory deficit (Neuro) Deep tendon reflexes (DTR's): Right patellar reflex intensity grade: 2+ and Left patellar reflex intensity grade: 2+ Extrem General: Yes normal to inspection and No edema Psych Appearance: grossly normal Affect: normal affect Attitude: cooperative Thought process: Normal thought process present Coding Level of Care Code Est Pt Level 3 (70276) Est Pt Prev Care >65y(80935) Diagnoses Adult general medical exam Z00.00 Screening for colon cancer Z12.11 Multiple sclerosis, secondary progressive G35 Elevated AST (SGOT) R74.01 Screening for cervical cancer Z12.4 Age-related osteoporosis without current pathological fracture M81.0 Osteoporosis type: age-related Presence of current pathological fracture: without current pathological fracture Additional Codes JAYLA-7 Assessment Billing - JAYLA-7 Assessment Tool: JAYLA-7 Assessment 86350 ([id number]) PHQ-9 - 16549 - PHQ-9 Billing: Yes ([id number]) Assessment & Plan Assessment & Plan (1) Adult general medical exam: Code(s): Z00.00 - Encounter for general adult medical examination without abnormal findings Category: Medical Plan: 64-year-old?female?presents?for?complete?physical?exam Encouraged?healthy?diet?with?active?lifestyle?and?plenty?of?exercise (2) Screening for colon cancer: Code(s): Z12.11 - Encounter for screening for malignant neoplasm of colon Category: Medical Plan: Patient?had?a?Cologuard?test?2?years?ago?and?will?be?due?again?next?year Up-to-date (3) Multiple sclerosis, secondary progressive: Code(s): G35 - Multiple sclerosis Category: Medical Plan: History?of?multiple?sclerosis. No?recent?flare-ups Follow-up?Neurology?as?recommended (4) Elevated AST (SGOT): Code(s): R74.01 - Elevation of levels of liver transaminase levels Category: Medical Plan: Mildly?elevated/borderline?AST Patient?has?issues?with?hydration?due?to?bladder?emptying?problems. Will?recheck?liver?enzymes?and?she?will?work?at?good?hydration?prior?test If?liver?enzymes?are?still?rising,?will?check?an?ultrasound (5) Screening for cervical cancer: Code(s): Z12.4 - Encounter for screening for malignant neoplasm of cervix Category: Medical Plan: Followed?by?custom motorcycle painter?at?[facility] [place] Follow-up?as?recommended (6) Osteoporosis: Code(s): M81.0 - Age-related osteoporosis without current pathological fracture Category: Medical Qualifiers: Osteoporosis type: age-related Presence of current pathological fracture: without current pathological fracture Qualified Code(s): M81.0 - Age-related osteoporosis without current pathological fracture Plan: History?of?osteoporosis?bone?density?test?last?year. He?has?receiveda ?Prolia?shot?from?her?model maker Continue?Prolia Recheck?bone?density?test?next?year Continue?vitamin-D Orders: Orders Thyroid Stimulating Hormone 4 Months E03.9 - Hypothyroidism, unspecified Triiodothyronine T3 Total 4 Months E03.9 - Hypothyroidism, unspecified Free T4 (Free Thyroxine) 4 Months E03.9 - Hypothyroidism, unspecified Comprehensive Met. Panel 4 Months R74.01 - Elevation of levels of liver transaminase levels
[2024-09-13 09:08] VITALS: BP 100/60; PULSE 85; RESP 14; TEMP 37.1; O2SAT 98; BMI 16.9
== END 2024-09-13 09:42 | disposition home or self-care (01) ==
LOC: HO.HMCFM 08:56
PROVIDERS: PCP Family Medicine; Visit Provider Family Medicine
DX: Z00.00 Encounter for general adult medical examination without abnormal findings (principal); G35 Multiple sclerosis; R74.01 Elevation of levels of liver transaminase levels; M81.0 Age-related osteoporosis without current pathological fracture; Z12.11 Encounter for screening for malignant neoplasm of colon

== ENCOUNTER → 2024-09-13 08:55 | Outpatient (BNVA) | payer MEDICARE, SELFPAY | PROVIDERS: PCP Family Medicine; Visit Provider Family Medicine | DX: Z00.00 Encounter for general adult medical examination without abnormal findings (principal); G35 Multiple sclerosis; R74.01 Elevation of levels of liver transaminase levels; M81.0 Age-related osteoporosis without current pathological fracture | CPT/HCPCS: 96127; 99212; 99397 ==

== ENCOUNTER 2024-11-15 10:26 | Outpatient (AMB) | payer MEDICARE, SELFPAY ==
--- NOTE | 2024-11-15 10:37 | A.OFFVIS_ITS ---
Vital Signs 11/15/24 10:45 Height 5 ft 0.63 in Weight 87 lb 4.849 oz BMI 16.7 BP 102/64 Blood Pressure Location Lt brachial Position Sitting Pulse 62 Pulse Source Pulse Oximeter Pulse Oximetry (%) 100 Oxygen Delivery Method Room Air Intake Visit Reasons: Follow up Intake Note: Patient presents for Osteoporosis follow up. Allergies tetracycline Allergy (Mild, Verified 11/15/24 10:44) Rash Medication List - Last Reconciled 11/15/24 by Opal Joyce MD calcium carbonate-vitamin D3 600 mg-62.5 mcg (2,500 unit) 1 cap PO DAILY cyanocobalamin (vitamin B-12) (B-12 DOTS) 2,000 mcg PO DAILY denosumab (Prolia) 60 mg subcut [id number] 6 months estradiol 0.01%(0.1mg/gram) (Estrace) 0.5 appful vaginal 3XW 90 days [id number]-loayqsmmd-dvsv pr con 15 billion cell-170 mg (Ultra Donna Plus) caps PO levothyroxine 100 mcg PO DAILY potassium gluconate 595 mg PO DAILY venlafaxine ER 75 mg PO BID HPI Comments Details: Patient is a 64-year-old female with secondary progressive multiple sclerosis (previously on avenex), subclinical hypothyroidism on levothyroxine and depression here today for follow up of osteoporosis Interval History: Patient last seen 05/17/2024 with me. At that time she was following up for her osteoporosis and received her Prolia injection in house. She requested that her Prolia be sent to her pharmacy and she can administer it at home herself. Today, Patient doing well. Had a fall during winter with what seems to be concussive symptoms with transient memory loss. She did not seek medical attention at that time however her symptoms resolved. No broken bones. Otherwise no complaints today apart from animal bites Rheumatologic History: Presented 03/2024 for evaluation of low bone density. Risk Factor Assessment: * Advanced age: 64 * Race: * Female sex * Menarche: 15/14 years. Menopause: 49 years * No known family history of osteoporosis or hip fractures. Mother has a history of falling with subsequent wrist fracture. * Never been * Calcium/vitamin-D intake: Eats yogurt every day with a protein powder. Does not like milk. 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 [place] * Cigarette smoking: Never smoker * Excessive alcohol: Does not drink alcohol * Excessive caffeine: Takes 1 caffeine pill per day High-risk medication assessment: Has a history of glucocorticoid use with MS flares Also takes venlafaxine for several years Does have balance issues due to MS and has fallen but no broken bones Current Rheum Medications: Prolia 60 mg sc every 6 months Vitamin-D supplementation PFSH Medical History 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, secondary progressive Screening for osteoporosis Screening for cervical cancer Microalbuminuria Breast cancer screening by mammogram Nocturia Incomplete bladder emptying Hypothyroidism (acquired) Surgical History Hx of tonsillectomy Family History Family/Other Breast cancer Father Heart disease Brother Cancer of kidney Social History Household Members: Spouse Housing: House Alcohol intake: never Patient Tobacco Use Status: Never used Tobacco e-Cigarette/Vaping Use: Never Used Second Hand Smoke Exposure: No service: No Current occupational status: retired Current occupational exposures/hazards: No Sexual orientation: Straight/Heterosexual Gender identity: Female Cognitive needs: No Hearing needs: No Vision needs: Yes (Patient wears reading glasses.) Review of Systems Const Details: Review of Systems Constitutional: Denies fever, chills, weight loss ENT: Denies vision changes, eye pain or eye redness, dental caries, dry mouth GI: Denies nausea, vomiting, diarrhea, abdominal pain, change in BM Pulm: Denies SOB, CAPONE, hemoptysis, wheezing Cards: Denies chest pain, palpitations Skin: Denies Raynaud's, rash, nail changes, photosensitivity, JUVENILE OFFICER: Denies headaches, weakness, paresthesias, recurrent falls MSK: as per HPI All other systems reviewed and are unremarkable except noted above Physical Exam Vital Signs: Last Vital Signs Pulse 62 11/15/24 10:45 BP 102/64 11/15/24 10:45 Pulse Ox 100 11/15/24 10:45 Oxygen Delivery Method Room Air 11/15/24 10:45 BMI result Body Mass Index 16.7 Vital signs reviewed Physical Examination CONSTITUITIONAL Patient alert and cooperative. Well appearing and in no apparent painful distress. Thin female HEENT Conjunctiva and sclera clear. ?Pupils equal round and reactive to light. ?No lymphadenopathy. ? CHEST/RESPIRATORY SYSTEM Normal respiratory effort and able to speak in complete sentences. ?Clear to auscultation bilaterally. ?No crackles, rales, rhonchi, wheezes heard. CARDIAC SYSTEM Regular rate and rhythm. ?S1 and S2 heard no murmurs. ?Radial pulses intact bilaterally MSK Hands: ?Able to make a fist. No synovitis noted to the MCPs, PIPs or DIPs. ?No tenderness to palpation of these joints. [place] nodes Wrists: ?Full range of motion at the wrists without pain. ?No tenderness to palpation or synovitis noted to the wrists. Elbows: Full range of motion without pain. No tenderness, weakness, swelling, increased warmth or erythema. Shoulders: Full range of active range of motion without pain. No tenderness, weakness, swelling, increased warmth or erythema. Hips: Full range of motion without pain. Hip bursa: No tenderness to palpation Knees: ?Full range of motion. ?No tenderness, swelling, increased warmth or erythema.?No effusion or crepitations Ankles: Full range of motion. ?No tenderness, swelling, increased warmth or erythema.? Feet: ?Negative squeeze test. ?No tenderness to palpation or swelling of the MTPs. Tender points:?No tenderness to palpation of the bilateral trapezius, supraspinatus, greater trochanters, anterior costochondral junctions, bilateral gluteal areas, bilateral suboccipital muscle insertions SKIN Skin intact without rashes. Has 2 healing bites to her left medial foot Results Reviewed Results Reviewed: Laboratory Tests 09/08/24 07:41 Sodium 139 Potassium 4.3 Chloride 107 Carbon Dioxide 28 BUN 22 H Creatinine 0.62 AST 34 H ALT 31 25-OH Vitamin D Total 59.7 Assessment & Plan Assessment & Plan (1) Osteoporosis: Comment: DEXA 09/2023: AP Spine -2.7, Left femur neck -3.3, Left femur total -3.4 Code(s): M81.0 - Age-related osteoporosis without current pathological fracture Category: Medical Qualifiers: Osteoporosis type: age-related Presence of current pathological fracture: without current pathological fracture Qualified Code(s): M81.0 - Age- related osteoporosis without current pathological fracture Plan: #Age related osteoporosis without fractures Patient is a 64-year-old female with age-related osteoporosis here today for follow up. Currently on Prolia injections and tolerating same well. Vitamin-D at goal. Patient will administer her Prolia injection this time. Plan - Prolia 60mg SC every 6 months - RTC 6 months - Labs before visit: CMP, Vit D - DEXA 09/2025 (2) Encounter for monitoring denosumab therapy: Code(s): Z51.81 - Encounter for therapeutic drug level monitoring; Z79.620 - half-way (current) use of immunosuppressive biologic Plan: #Long-term use of Denosumab Discussed with patient the risks and benefits of denosumab (Prolia) for the management of their osteoporosis Benefits include improved bone density, decreased fracture risk Risks include rapid bone loss if denosumab stopped, osteonecrosis of the jaw especially in patients with poor oral hygiene/diabetes/use of glucocorticoids/age greater than 65 years, atypical femoral fractures, injection site reactions. Mild increased risk of infections due to RANKL on T helper cells, increased risk of hypocalcemia especially in CKD patients Keep vitamin-D at least 35 ng/mL Advised to delay non emergent dental procedures to toward the end of the 6 month cycle and if they plan to stop denosumab would need to continue antiresorptive to maintain the effects of denosumabe Plan I spent 20 minutes reviewing the record and labs, seeing the patient, discussing the treatment plan and documenting in the medical record Orders: Orders Comprehensive Met. Panel 6 Months M81.0 - Age-related osteoporosis without cur rent pathological fracture, R79.89 - Other specified abnormal findings of blood chemistry Vitamin D 25-OH Total 6 Months M81.0 - Age-related osteoporosis without current pathological fracture, R79.89 - Other specified abnormal findings of blood chemistry Medications: Refilled denosumab (Prolia) 60 mg subcut [id number] 6 months 1 mL 1RF M81.0 - Age-related osteoporosis without current pathological fracture Coding Level of Care Code Est Pt Level 3 (57197) Complex EM visit Add On G2211 Diagnoses Age-related osteoporosis without current pathological fracture M81.0 Osteoporosis type: age-related Presence of current pathological fracture: without current pathological fracture Encounter for monitoring denosumab therapy Z51.81; Z79.620
[2024-11-15 10:45] VITALS: BP 102/64; PULSE 62; O2SAT 100; BMI 16.7
--- OUTSIDE RECORDS SUMMARY | 2024-11-15 11:13 | XMS_ITS | Clinical Summary ---
Author Organization [facility] Address [address] [place] [address] Care Team Providers Care Informatica Architect Name Role Phone Vicky Menon NP Primary Care Provider [phone] Social History Tobacco Use Types Packs/Day Years Used Date Smoking Tobacco: Never Assessed Comments Unknown Sex and Gender Information Value Date Recorded Sex Assigned at Not on file Legal Sex Female 8:10 AM EDT Gender Identity Not on file Sexual Orientation Not on file Plan of Treatment Health Maintenance Due Date Last Done Comments Hepatitis C Virus Screening 1958 DTaP/Tdap/Td Vaccines (1 - Tdap) 1977 Mammogram 1998 Colonoscopy 2003 Pneumococcal Vaccines 50+ (1 of 1 - PCV) 02/05/2008 Zoster (Shingles) Vaccine (1 of 2) 02/05/2008 DXA Bone Density (Females,Ag es 65 and older) 2023 COVID-19 Vaccine ( - 2023-2 5 season) 2024 Influenza Vaccine 01/20/2025 RSV Vaccine 60 years and old er and Patients (1 - 1-dose 75+ series) 2033 Hepatitis B Vaccines Aged Out No long er eligible based on patient's age to complete this topic Insurance [facility] MEDICARE Care Teams Informatica Architect Relationship Specialty Start Date End Date Vicky Menon NP [address] [place] [address] PCP - General Family Medicine 04/21/22
== END 2024-11-15 11:19 | disposition home or self-care (01) ==
LOC: HO.RHE 10:27
PROVIDERS: PCP Family Medicine; Visit Provider Student in an Organized Health Care Education/Training Program
DX: M81.0 Age-related osteoporosis without current pathological fracture (principal); Z51.81 Encounter for therapeutic drug level monitoring; Z79.620 Long term (current) use of immunosuppressive biologic
CPT/HCPCS: 99213; G2211

== ENCOUNTER → 2024-11-15 10:26 | Outpatient (BNVA) | payer MEDICARE, SELFPAY | PROVIDERS: PCP Family Medicine; Visit Provider Student in an Organized Health Care Education/Training Program | DX: M81.0 Age-related osteoporosis without current pathological fracture (principal); R79.89 Other specified abnormal findings of blood chemistry; Z51.81 Encounter for therapeutic drug level monitoring; Z79.620 Long term (current) use of immunosuppressive biologic | CPT/HCPCS: 99212 ==

== ENCOUNTER 2025-02-21 09:37 | Outpatient (AMB) | payer MEDICARE, SELFPAY ==
--- OUTSIDE RECORDS SUMMARY | 2024-01-02 17:30 | XMS_ITS ---
Author Organization [facility] Rheumatology Address [address] [id number] Care Team Providers Care Demolitionist Name Role Phone Niharika Nolan DO Primary Care Provider Unavailhalie Melendrez MD, [place] Unavailable [phone] Migration, Provider Unavailable Unavailable Allergies Allergen (clinical drug ingredient) Drug/Non Drug Allergy documented on EMR Reaction Allergy Type Onset Date Status tetracycline Tetracycline fever Drug Allergy A ctive REAS[facility]IT [facility] Encounter Medications Medication SIG (Take, Route, Frequency, Duration) Notes Start Date End Date Status Polyethylene Glycol 3350 *Please review and pick correct strength-formulat ion [facility] options. If intended option is not shown, [...] Active Encounters Encounter Location Date Provider Diagnosis [facility] Rheumatology 500 [facility] [address] [place], [place] [phone] 01/02/2024 Provider Migration Senile/Osteoporosis without current pathological [...] * Vinita TURNERDOB:1960 ( 65 yo F)Acc No.[id number]:01/02/2024 Patient: Vinita MACHADO Provider: Negin Le :1960 A ge:63 Y S ex:Female Date:01/02/2024 Address:[address] [place], [place] [address] [address] Pcp:Niharika Nolan DO Subjective: * Chief Complaints: [...] Objective: * Vitals: Assessment: * Assessment: 1. P ost Menopausal Osteoporosis - M81.0 (Primary) 2 . S enile/Osteoporosis without current pathological fracture - M81.0 (Primary) Plan: * Treatment: 2. P ost Menopausal Osteoporosis Continue Prolia Solution Prefilled Syringe, 60 MG/ML, 60 mg, subcutaneously, every 6 months. ? * Images: * Electronic signature of Prov ider Migration on 02/21/2025 at 10:40 AM EDT Sign off status: Pending * Provider: Negin gaytan Migration Date: 0 01/02/2024 Generated for Mohan santiago/Juana/Afia on: 0 02/21/2025 10:40 AM EDT
--- NOTE | 2025-02-21 09:49 | MHC.OFFVIS ---
Vital Signs 02/21/25 09:51 Height 5 ft 0.63 in Weight 85 lb BMI 16.3 BP 110/60 Intake Visit Reasons: ACUTE CARE NURSING ASSISTANT annual exam/DO NOT RS Marketing Account Executive: Marketing Account Executive Present (Neida) Allergies tetracycline Allergy (Mild, Verified 02/21/25 09:51) Rash HPI Comments Details: Presenting for annual exam. No complaints. Last Pap/HPV was negative in 10/13 Last Mammogram was BI-RADS 1 in 10/13 Last Colonoscopy Last DEXA scan was in 10/13 [facility] Medical History 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, secondary progressive Screening for osteoporosis Screening for cervical cancer Microalbuminuria Breast cancer screening by mammogram Nocturia Incomplete bladder emptying Hypothyroidism (acquired) Surgical History Hx of tonsillectomy Family History Family/Other Breast cancer Father Heart disease Brother Cancer of kidney Social History Household Members: Spouse Housing: House Alcohol intake: never Patient Tobacco Use Status: Never used Tobacco e-Cigarette/Vaping Use: Never Used Second Hand Smoke Exposure: No service: No Current occupational status: retired Current occupational exposures/hazards: No Sexual orientation: Straight/Heterosexual Gender identity: Female Cognitive needs: No Hearing needs: No Vision needs: Yes (Patient wears reading glasses.) Female Reproductive History Menstrual Total pregnancies: 0 Date of last pap smear: 11/18/23 (unsat neg hpv 12/16/23 neg pap) Date of Mammogram: 10/09/23 Date of last Bone Density Screenin10/09/23 Review of Systems Const All systems reviewed & are unremarkable except as noted in HPI and below Card Reports as per HPI Resp Reports as per HPI GI Reports as per HPI and Reports no additional complaints Reports as per HPI Physical Exam Vital Signs: Last Vital Signs BP 110/60 02/21/25 09:51 BMI result Body Mass Index 16.3 Const General: cooperative, healthy appearing and comfortable Chest Chest palpation & inspection: normal inspection of the chest and normal palpation of entire chest wall Breast/axilla inspection: normal inspection of the breasts and normal inspection of the axillae Breast/axilla palpation: normal palpation of the breasts, normal palpation of the axillae and no axillary lymphadenopathy Resp Effort & Inspection: normal respiratory effort Auscultation: clear to auscultation bilaterally Percussion: percussion normal Cardio Palpation: normal PMI Rate: regular rate Rhythm: regular rhythm Heart sounds: no murmurs and no rubs Peripheral pulses: Peripheral pulses 2+ throughout GI Inspection: Yes normal to inspection Palpation (GI): Soft to palpation, nontender, no guarding, not rigid and No hepatosplenomegaly present Percussion: Yes normal to percussion Auscultation: normal bowel sounds Rectal Exam - Female: deferred General: Yes bladder normal to palpation External Female Exam: No lesion Speculum Exam - Vagina: normal appearance of the vagina, normal palpation, normal vaginal discharge and not erythematous Speculum Exam - Cervix: normal appearance of the cervix and normal palpation Bimanual exam- vagina & uterus: normal bimanual exam, normal palpation, uterine size normal, bladder normal to palpation, consistency normal and normal palpation Bimanual Exam- Adnexa, other: normal adnexae, no masses and no tenderness Assessment & Plan Assessment & Plan (1) Well woman exam: Code(s): Z01.419 - Encounter for gynecological examination (general) (routine) without abnormal findings Category: Medical Plan: Co testing not indicated since the patient 's age is above 65 with no history of abnormal Pap smears last 25 years, adequately screen for the last 10 years with no history of immunosuppression. Counseled the patient about the recommended dietary allowance of 1200 mg of Calcium & 800 IU of vitamin D. Mammogram ordered. Referred her for screening colonoscopy done. The patient was instructed to perform monthly self-breast exams and to schedule a 2 week DEXA scan follow-up appointment and an annual exam in a year; All questions answered and the patient verbalized understanding. Orders: Orders MM tomosynthesis screening BI Today Z12.31 - Encounter for screening mammogram for malignant neoplasm of breast Referrals Gastroenterology Referral Z12.11 - Encounter for screening for malignant neoplasm of colon Coding Level of Care Code Est Pt Prev Care >65y(23599) Diagnoses Well woman exam Z01.419
[2025-02-21 09:51] VITALS: BP 110/60; BMI 16.3
--- OUTSIDE RECORDS SUMMARY | 2025-02-21 10:41 | XMS_ITS | Clinical Summary ---
Author Organization [facility] Address [address] [place] [address] Care Team Providers Care Jewelry Consultant Name Role Phone Unavailable Primary Care Provider Unavailabl e Medications Medication Sig Dispensed Refills Start Date End Date Status estradiol (ESTRACE) 0.1 MG/GM vaginal cream USE 0.25 APPLICATORFUL ONE QUARTER APPLICATOR) VAGINALLY 2 TIMES A WEEK 0 12/28/2023 Active levothyroxine (SYNTHROID) tablet 100 mcg TAKE ONE TABLET BY MOUTH EVERY DAY 0 02/03/2024 Active venlafaxine (EFFEXOR-XR) 75 MG 24 hr capsule Take 1 capsule (75 mg total) by mouth 2 (two) times a day. 0 12/08/2023 Active dalfampridine ER (AMPYRA) 10 MG 12 hr tablet Take 1 tablet (10 mg total) by mouth every 12 (twelve) hours. 60 tablet 3 02/12/2024 Active Social History Tobacco Use Types Packs/Day Years Used Date Smoking Tobacco: Unknown Tobacco Cessation:Counseling Given: Not Answered Sex and Gender Information Value Date Recorded Sex Assigned at Female 01/19/2024 8:51 AM EDT Gender Identity Not on file Sexual Orientation Not on file Job Start Date Occupation Industry Not on file Not on file Not on file Last Filed Vital Signs Vital Sign Reading Time Taken Comments Blood Pressure 119/70 02/12/2024 3:43 PM EDT Pulse 75 02/12/2024 3:43 PM EDT Temperature 36.1 C (97 F) 02/12/2024 3:43 PM EDT Respiratory Rate - - Oxygen Saturation 98% 02/12/2024 3:43 PM EDT Inhaled Oxygen Concentration - - Weight 39.5 kg (87 lb) 02/12/2024 3:43 PM EDT Height - - Body Mass Index - - Plan of Treatment Health Maintenance Due Date Last Done Comments Hepatitis C Screening 1960 COVID-19 Vaccine (#1) 1958 Depression Screening 1970 Preventative Health Evaluation 02/05/1976 DTap / Tdap / Td (1 - Tdap) 1977 Colon Cancer Screening (Colonoscopy) 2003 Breast Cancer Screening (Mammogram) 02/05/2008 Shingrix-Zoster Vaccine (1 of 2) 02/05/2008 Fall Risk Assessment 2023 Osteoporosis Screening (DEXA Scan) 2023 Pneumococcal Vaccine (1 of 1 - PCV) 2023 Influenza Vaccine (#1) 2025 RSV Adult > 60+ Yrs or Pregn ant (1 - 1-dose 75+ series) 2033 Hepatitis B Vaccines Aged Out No long er eligible based on patient's age to complete this topic RSV Ped < 20 months Aged Out No longe r eligible based on patient's age to complete this topic
--- OUTSIDE RECORDS SUMMARY | 2025-02-21 10:41 | XMS_ITS | Patient Health Record ---
Author Organization [facility] Address [address] [place] [id number] Care Team Providers Care Grass Farmer Name Role Phone Niharika Nolan DO Primary Care Provider Kun Melendrez MD, [place] Unavailable [phone] Allergies Allergen (clinical drug ingredient) Drug/Non Drug Allergy documented on EMR Reaction Allergy Type Onset Date Status tetracycline Tetracycline fever Drug Allergy A ctive Reason For Referral No Information Medications Medication SIG (Take, Route, Frequency, Duration) Notes Start Date End Date Status PROLIA 60 mg/mL 60 mg subcutaneously every 6 months Active Prolia 60 MG/ML 60 mg subcutaneously every 6 months; Duration: 12 month(s) Active CAFFEINE 200 mg orally Acti ve LEVOTHYROXINE 100 mcg (0.1 mg) 6 tab (s) orally q week Active Polyethylene Glycol 3350 *Please review and pick correct strength-formulat ion from [employer] options. If intended option is not shown, discontinue and re-order from Quick Search* Active POLYETHYLENE GLYCOL 3350 Active Levothyroxine Sodium 100 MCG 6 tab (s) orally q week Active Prolia 60 MG/ML 60 mg subcutaneously every 6 months Active VENLAFAXINE 75 mg orally bid A ctive Vitamin B-12 1000 MCG 1 tab(s) orally once a day Active Vitamin D3 125 MCG (5000 UT) 1 cap(s) orally once a day Active Caffeine 200 MG orally Acti ve PROLIA 60 mg/mL 60 mg subcutaneously every 6 months; Duration: 12 month(s) Active PREMPRO 0.45 mg-1.5 mg orally Unknown VITAMIN D3 5000 intl units 1 cap(s) orally once a day Active HYCOSAMINE 0.125MG 1 TAB PO BID *Please revie w for potential replacement for e-prescription and drug interaction check* Active VITAMIN B-12 1000 mcg 1 tab(s) orally once a day Active Venlafaxine HCl 75 MG orally bid Active Prempro 0.45-1.5 MG orally Unknown Problems Problem Type SNOMED Code ICD Code Onset Dates Problem Status W/U Status Risk Notes Problem Senile/Osteoporo s is without current pathological fracture (M81.0) Active confirmed Problem Post Menopausal Osteoporosis (M81.0) Active confirmed Plan Of Treatment Pending Test Test Name Order Date Calcium 07/23/2018 Calcium 12/17/2017 Calcium 06/19/2017 DEXA 06/19/2017 DEXA 07/23/2018 DEXA 02/14/2016 DEXA 02/14/2016 Osteoporosis Panel: 25-OH vi tamin D ----- PTH INTACT--------(IgG, IgA) anti-transglutaminase----- Calcium Phosphorus--------- Creatinine Alkaline Phosphatase 02/14/2016 Osteoporosis Panel: 25-OH vi tamin D ----- PTH INTACT--------(IgG, IgA) anti-transglutaminase----- Calcium Phosphorus--------- Creatinine Alkaline Phosphatase 02/08/2015 Vitamin D 25-OH (not 1,25) 07/23/2018 Vitamin D 25-OH (not 1,25) 06/19/2017 Vitamin D 25-OH (not 1,25) 12/17/2017 DXA 12/27/2019 DXA ( IN HOUSE ONLY) 12/27/2019 Insurance Providers Payer Name Payer Address Payer Phone Subscriber Number Group Number Insured Name Patient Relationship to Insured Coverage Start Date Coverage End Date [facility] [address] [address] [place], [place] [phone] [id number] [place] He[place] Self - patient is the insured [employer] Program [address] [phone] [place] [address] [id number] [place] Self - patient is the insured Medical (General) History Medical History History ICD Code Hypothyroidism IBS Multiple sclerosis - secondary progressi ve Surgical History Surgery Date(Month/Year) Tonsillectomy
--- OUTSIDE RECORDS SUMMARY | 2025-02-21 10:41 | XMS_ITS ---
Author Name [facility] Organization Unknown History of Medication Use Medication Directions Dispensed Refills Start Date End Date Stat levothyroxine (SYNTHROID) tablet 100 mcg TAKE ONE TABLET BY MOUTH EVERY DAY 02/03/2024 active Problems Problem Status Onset Date Problem Type Date of Resoluti on Source Multiple sclerosis (HCC) active EncounterDiagnosisAct CTTHNE MG Care Team Organization Name Specialty Phone Email Start Date End [facility] JUSTYNA BAPTISTE Primary Care
--- OUTSIDE RECORDS SUMMARY | 2025-02-21 10:41 | XMS_ITS | Clinical Summary ---
Author Organization [facility] Address [address] [place] [address] Care Team Providers Care Alteration Inspector Name Role Phone Vicky Menon NP Primary Care Provider [phone] Social History Tobacco Use Types Packs/Day Years Used Date Smoking Tobacco: Never Assessed Comments Unknown Sex and Gender Information Value Date Recorded Sex Assigned at Not on file Legal Sex Female 8:10 AM EDT Gender Identity Not on file Sexual Orientation Not on file Plan of Treatment Health Maintenance Due Date Last Done Comments Advance Care Planning 1960 Hepatitis C Virus Screening 1960 DTaP/Tdap/Td Vaccines (1 - Tdap) 1977 Mammogram 1998 Colonoscopy 2003 Pneumococcal Vaccines 50+ (1 of 1 - PCV) 02/05/2008 Zoster (Shingles) Vaccine (1 of 2) 02/05/2008 DXA Bone Density (Females,Ag es 65 and older) 2023 COVID-19 Vaccine (1 - 2023-2 5 season) 2024 Influenza Vaccine 01/20/2025 RSV Vaccine 60 years and old er and Patients (1 - 1-dose 75+ series) 2033 Hepatitis B Vaccines Aged Out No long er eligible based on patient's age to complete this topic Insurance [facility] MEDICARE Care Teams Alteration Inspector Relationship Specialty Start Date End Date Vicky Menon NP [address] [place] [address] PCP - General Family Medicine 04/21/22
--- OUTSIDE RECORDS SUMMARY | 2025-02-21 10:41 | XMS_ITS | Clinical Summary ---
Author Organization [facility] Address [address] [place] [address] Care Team Providers Care Material Distributor Name Role Phone Goldy Slade MD Primary Care Provider Allergies Active Allergy Reactions Criticality Noted Date Comments Tetracycline 02/17/2024 Hives Medications estradioL (ESTRACE) 0.01 % (0.1 mg/gram) vaginal cream Insert 2 g into the vagina 1 (one) time each day. Active levothyroxine (SYNTHROID, LEVOTHROID) 100 mcg tablet Take by mouth 1 (one) time each day before breakfast. Active venlafaxine (EFFEXOR) 75 mg tablet Take 1 tablet (75 mg total) by mouth 2 (two) times a day. Active cholecalciferol (VITAMIN D-3) 10 mcg (400 unit) tablet Take 1 tablet (400 Units total) by mouth 1 (one) time each day. Active calcium carbonate (CALCIUM ORAL) Take by mouth. Active cyanocobalamin (VITAMIN B-12) 100 mcg tablet Take 1 tablet (100 mcg total) by mouth 1 (one) time each day. Active MAGNESIUM ORAL Take by mouth. Active caffeine 200 mg Take 1 tablet (200 mg total) by mouth every 4 (four) hours if needed. Active Social History Tobacco Use Types Packs/Day Years Used Date Smoking Tobacco: Unknown Tobacco Cessation:Counseling Given: Not Answered Comments Unknown Sex and Gender Information Value Date Recorded Sex Assigned at Not on file Legal Sex Female 9:48 AM EDT Gender Identity Not on file Sexual Orientation Not on file Obstetrics History Last Filed Vital Signs Vital Sign Reading Time Taken Comments Blood Pressure 96/64 05/16/2024 10:07 AM EST Pulse 80 05/16/2024 10:07 AM EST Temperature 36.2 C (97.2 F) 05/16/2024 10:07 AM EST Respiratory Rate - - Oxygen Saturation 97% 05/16/2024 10:07 AM EST Inhaled Oxygen Concentration - - Weight 40.8 kg (90 lb) 05/16/2024 10:07 AM EST Height 157.5 cm (5' 2 ) 05/16/2024 10:07 AM EST Body Mass Index 16.46 05/16/2024 10:07 AM EST Plan of Treatment Health Maintenance Due Date Last Done Comments Breast Cancer Screening 1960 DTaP,Tdap,and Td Vaccines (1 - Tdap) 1977 Pneumococcal Vaccine: 50+ Ye ars (1 of 1 - PCV) 02/05/2008 Zoster Vaccines (1 of 2) 02/05/2008 Colorectal Cancer Screening: Colonoscopy 02/15/2024 Falls Risk Assessment 02/15/2024 Hepatitis C Screening 02/15/2024 Medicare Annual Wellness Visit 02/15/2024 Osteoporosis Screening (Bone Density Screening) 02/15/2024 Social Influencers of Health Screening 02/15/2024 Depression Screening 06/22/2024 COVID-19 Vaccine (1 - 2023-2 5 season) 2025 Influenza Vaccine (#1) 2025 RSV Immunization Adult Patie nts (1 - 1-dose 75+ series) 2033 HIB Vaccines Aged Out No longer eligi ble based on patient's age to complete this topic HPV Vaccines Aged Out No longer eligi ble based on patient's age to complete this topic Hepatitis A Vaccines Aged Out No long er eligible based on patient's age to complete this topic Hepatitis B Vaccines Aged Out No long er eligible based on patient's age to complete this topic IPV Vaccines Aged Out No longer eligi ble based on patient's age to complete this topic MMR Vaccines Aged Out No longer eligi ble based on patient's age to complete this topic Meningococcal ACWY Vaccine Aged Out N o longer eligible based on patient's age to complete this topic Meningococcal B Vaccine Aged Out No l onger eligible based on patient's age to complete this topic RSV Immunization Patients Un eli 20 months Aged Out No longer eligible b ased on patient's age to complete this topic Varicella Vaccines Aged Out No longer eligible based on patient's age to complete this topic Insurance [employer] - [place] MEDICARE ADVANTAGE Care Teams Material Distributor Relationship Specialty Start Date End Date Goldy Slade MD PCP - General Family Medicine 05/16/24
== END 2025-02-21 10:07 | disposition home or self-care (01) ==
LOC: HO.HWS 09:37
PROVIDERS: PCP Family Medicine; Visit Provider Obstetrics & Gynecology
DX: Z01.419 Encounter for gynecological examination (general) (routine) without abnormal findings (principal)
CPT/HCPCS: 99397; 99459

== ENCOUNTER → 2025-02-21 09:37 | Outpatient (BNVA) | payer MEDICARE, SELFPAY | PROVIDERS: PCP Family Medicine; Visit Provider Obstetrics & Gynecology | DX: Z01.419 Encounter for gynecological examination (general) (routine) without abnormal findings (principal) | CPT/HCPCS: 99397 ==

== ENCOUNTER 2025-03-06 09:18 | Outpatient (REF) | payer MEDICARE, SELFPAY | END 2025-03-06 09:19 | disposition home or self-care (01) | LOC: HO.LAB 09:18 | PROVIDERS: PCP Family Medicine; Visit Provider Family Medicine | DX: N39.0 Urinary tract infection, site not specified (principal); E03.9 Hypothyroidism, unspecified; R63.6 Underweight; R35.0 Frequency of micturition; M79.675 Pain in left toe(s) | CPT/HCPCS: 99212 ==

== ENCOUNTER 2025-03-06 09:18 | Outpatient (AMB) | payer MEDICARE, SELFPAY ==
--- OUTSIDE RECORDS SUMMARY | 2024-01-02 17:30 | XMS_ITS ---
Author Organization [facility] Rheumatology Address [address] [phone] Care Team Providers Care Court Worker Name Role Phone Niharika Nolan DO Primary Care Provider Unavailhalie Melendrez MD, [place] Unavailable [phone] Migration, Provider Unavailable Unavailable Allergies Allergen (clinical drug ingredient) Drug/Non Drug Allergy documented on EMR Reaction Allergy Type Onset Date Status tetracycline Tetracycline fever Drug Allergy A ctive REAS[facility]IT [facility] Encounter Medications Medication SIG (Take, Route, Frequency, Duration) Notes Start Date End Date Status Polyethylene Glycol 3350 *Please review and pick correct strength-formulat ion from [facility] options. If intended option is [...] Provider Diagnosis [facility] Rheumatology 500 [facility] [address] [place], [place] [phone] 01/02/2024 Provider Migration Senile/Osteoporosis without current pathological [...] * Vinita TURNERDOB:1960 ( 65 yo F)Acc No.[id number]:01/02/2024 Patient: Vinita MACHADO Provider: Negin Le :1960 A ge:63 Y S ex:Female Date:01/02/2024 Address:[address] [place], [place] [address] [address] Pcp:Niharika Nolan DO Subjective: * Chief Complaints: [...] Electronic signature of Prov ider Migration on 03/06/2025 at 11:00 AM EDT Sign off status: Pending * Provider: Negin gaytan Migration Date: 01/02/2024 Generated for Mohan santiago/Juana/Luisitting on: 0 03/06/2025 11:00 AM EDT
[2025-03-06 09:23] VITALS: BP 102/62; PULSE 70; O2SAT 96; BMI 16.4
--- NOTE | 2025-03-06 09:23 | A.OFFPC_ITS ---
Vital Signs 03/06/25 09:23 Height 5 ft 0.63 in Weight 85 lb 8 oz BMI 16.4 BP 102/62 Blood Pressure Location Rt brachial Position Sitting Pulse 70 Pulse Source Pulse Oximeter Pulse Oximetry (%) 96 Oxygen Delivery Method Room Air Intake Visit Reasons: f/u hypothyroid labs, chronic conditions Allergies tetracycline Allergy (Mild, Verified 03/06/25 09:26) Rash Medication List - Last Reconciled 03/06/25 by Goldy Slade MD calcium carbonate-vitamin D3 600 mg-62.5 mcg (2,500 unit) 1 cap PO DAILY cyanocobalamin (vitamin B-12) (B-12 DOTS) 2,000 mcg PO DAILY denosumab (Prolia) 60 mg subcut [id number] 6 months estradiol 0.01%(0.1mg/gram) (Estrace) 0.5 appful vaginal 3XW 90 days simjvczj-rgeoqiwik-fbay pr con 15 billion cell-170 mg (Ultra Donna Plus) caps PO levothyroxine 100 mcg PO DAILY potassium gluconate 595 mg PO DAILY venlafaxine ER 75 mg PO BID Tobacco use date assessed: 03/06/25 Fall risk assessment: No Falls in past year Last assessed Fall Risk: 03/06/25 Dental Screening Dental Screen Date: 03/06/25 Did you have a dental visit in the last 12 months?: No Did you have a dental problem in the last 6 months where you did not have access to dental care?: No Was dental information given to patient?: Patient declined HPI f/u hypothyroid labs, chronic conditions HPI Details 65 y/o female presents to f/u hypothyroi d, chronic conditions. No recent labs to review. She reports ongoing urinary frequency. Complaints of L great toe pain. Also has complaints of R foot weakness. [facility] Medical History 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, secondary progressive Screening for osteoporosis Screening for cervical cancer Microalbuminuria Breast cancer screening by mammogram Nocturia Incomplete bladder emptying Hypothyroidism (acquired) Surgical History Hx of tonsillectomy Family History (Updated 03/06/25 @ 09:27 by Celestina Alexander CMA) Family/Other Breast cancer Father Heart disease Brother Cancer of kidney Social History Household Members: Spouse Housing: House Alcohol intake: never Patient Tobacco Use Status: Never used Tobacco e-Cigarette/Vaping Use: Never Used Second Hand Smoke Exposure: No service: No Current occupational status: retired Current occupational exposures/hazards: No Sexual orientation: Straight/Heterosexual Gender identity: Female Cognitive needs: No Hearing needs: No Vision needs: Yes (Patient wears reading glasses.) Questionnaire PHQ-9 Over the last 2 weeks, how often have you been bothered by any of the following problems? 1. Little interest or pleasure in doing things: several days 2. Feeling down, depressed, or hopeless: several days 3. Trouble falling or staying asleep, or sleeping too much: not at all 4. Feeling tired or having little energy: several days 5. Poor appetite or overeating: not at all 6. Feeling bad about yourself - or that you are a failure or have let yourself or your family down: several days 7. Trouble concentrating on things, such as reading the newspaper or watching television: not at all 8. Moving or speaking so slowly that other people could have noticed. Or the opposite - being so fidgety or restless that you have been moving around a lot more than usual: not at all 9. Thoughts that you would be better off or of hurting yourself in some way: not at all Total score: 4 Depression Screening Interpretation: Negative Depression Screening Done: Yes Source: Developed by Drs. Gabriele Dominguez, Jolene Heredia, Hammad Hess and colleagues, with an educational starr from [employer]. Thrive Questionnaire Date Thrive assessed: 09/06/24 I am a: Patient What is your living situation today?: I have a steady place to live Within the past 12 months, did the food you bought not last and you didn't have the money to get more?: Never true Within the past 12 months, did you worry whether your food would run out before you got money to buy more?: Never true Do you have trouble paying for medicines?: No Do you have trouble getting transportation to medical appointments?: No Do you have trouble paying your heating and electricity bill?: No Do you have trouble taking care of your child, family member or friend?: No Do you have trouble with day-to-day activities such as bathing, preparing meals, shopping, managing finances, etc.?: No Are you currently unemployed and looking for a job?: No Are you interested in more education?: No Please select the resources that you would like help with: None Currently or been in a relationship where the following occur: No concerns reported THRIVE Score: 0 AUDIT C Alcohol Use Questionnaire (AUDIT-C) 1. How often do you have a drink containing alcohol?: Never 3. How often do you have six or more drinks on one occasion?: Never Total Score: 0 Score Reviewed/Action Taken: Yes JAYLA-7 AMB Questionnaire JAYLA-7 Date JAYLA - 7 assessed: 09/13/24 Feeling nervous, anxious, or on edge: 0 = Not at all Not being able to stop or control worryin = Not at all Worrying too much about different things: 1 = Several days Trouble relaxin = Not at all Being so restless that it is hard to sit still: 0 = Not at all Becoming easily annoyed or irritable: 0 = Not at all Feeling afraid as if something awful might happen: 0 = Not at all Total JAYLA-7 score (0-4 normal; 5-9 mild; 10-14 moderate; 15-21 severe): 1 Source: Developed by Drs. Gabriele Dominguez, Jolene Heredia, Hammad Hess and colleagues, with an educational starr from [employer]. Review of Systems Const Denies chills, Denies fatigue, Denies fever(s), Denies headache(s) and Denies weakness ENT Denies dizziness and Denies headache(s) Card Denies dyspnea Resp Denies cough, Denies dyspnea, Denies wheezing and Denies other (shortness of breath) Musc Denies numbness and Denies tingling Neuro Denies dizziness, Denies headache(s), Denies numbness, Denies tingling and Denies weakness Psych Denies anxiety and Denies depression Endo Denies fatigue Aller/Immun Denies wheezing Physical exam (Primary Care) Vital Signs: Last Vital Signs Pulse 70 03/06/25 09:23 BP 102/62 03/06/25 09:23 Pulse Ox 96 03/06/25 09:23 Oxygen Delivery Method Room Air 09/15/25 09:23 BMI result Body Mass Index 16.4 Tobacco/Smoking Status: Tobacco use Status Tobacco use date assessed 03/06/25 03/06/25 09:28 Patient Tobacco Use Status Never used Tobacco 03/06/25 09:28 e-Cigarette/Vaping Use Never Used 03/06/25 09:28 PHQ-9: PHQ-9 Score PHQ-9: Total score 4 03/06/25 09:28 Depression Screening Interpretation: Negative Thrive Assessment: Date of Thrive Assessment Date Thrive assessed 09/06/24 03/06/25 09:28 Currently or been in a relationship where the following occur: No concerns reported Const General: well developed; No acute distress Nutritional Appearance: underweight Orientation/consciousness: patient oriented x3 HENMT Head: Yes normocephalic and Yes atraumatic Eyes General: appearance normal, both eyes and all related structures Pupils: Equal, round and reactive pupils present EOM: EOMs intact bilaterally Resp Effort & Inspection: normal respiratory effort Neuro General: patient oriented x3 and gait normal Cranial nerves: Yes Equal, round and reactive pupils present Psych Affect: normal affect Coding Level of Care Code Est Pt Level 4 (47047) Diagnoses Recurrent UTI N39.0 Hypothyroidism (acquired) E03.9 Underweight R63.6 Urinary frequency R35.0 Toe pain, left M79.675 Assessment & Plan Assessment & Plan (1) Recurrent UTI: Code(s): N39.0 - Urinary tract infection, site not specified Category: Medical Plan: Recurrent UTIs and patient has symptoms today Will start her on Macrobid Sending urine for culture and sensitivities Patient says she has had many urinary tract infections and she does have difficulty with emptying likely secondary to MS Referred to urology (2) Hypothyroidism (acquired): Code(s): E03.9 - Hypothyroidism, unspecified Category: Medical Plan: Patient is due for follow-up of thyroid labs. She has not gotten these drawn yet but will do so. (3) Underweight: Code(s): R63.6 - Underweight Category: Medical Plan: Ongoing underweight status This is stable (4) Urinary frequency: Code(s): R35.0 - Frequency of micturition Category: Medical (5) Toe pain, left: Code(s): M79.675 - Pain in left toe(s) Category: Medical Plan: Left great toe pain Will check uric acid level though this does not appear to be gout Referred to Podiatry Plan Also has difficulty extending right 4th toe Some weakness and stiffness Referred to Podiatry Orders: Orders UA CC w/rflx Micro + Cult Today R35.0 - Frequency of micturition, Z00.00 - Encounter for general adult medical examination without abnormal findings Urine Culture Today R35.0 - Frequency of micturition Referrals Podiatry Referral M79.675 - Pain in left toe(s), R29.898 - Other symptoms and signs involving the musculoskeletal system Urology Referral N39.0 - Urinary tract infection, site not specified Medications: New nitrofurantoin monohyd/m-cryst 100 mg (Macrobid) must administer with a meal/food 100 mg PO BID 14 caps 0RF 7 days
--- OUTSIDE RECORDS SUMMARY | 2025-03-06 11:00 | XMS_ITS | Clinical Summary ---
Author Organization [facility] Address [address] [place] [address] Care Team Providers Care Music Specialist Name Role Phone Unavailable Primary Care Provider [...]
--- OUTSIDE RECORDS SUMMARY | 2025-03-06 11:00 | XMS_ITS | Clinical Summary ---
Author Organization [facility] Address [address] [place] [address] Care Team Providers Care Wax Pot Tender Name Role Phone Vicky Menon NP Primary Care Provider [phone] Social History Tobacco Use Types Packs/Day Years [...] Density (Females,Ag es 65 and older) 2023 Influenza Vaccine 01/20/2025 COVID-19 Vaccine ( - 2023-2 5 season) 2025 RSV Vaccine 60 years and old er and Patients (1 - 1-dose 75+ series) 2033 Hepatitis B Vaccines Aged Out No long er eligible based on patient's age to complete this topic Insurance [facility] MEDICARE Care Teams Wax Pot Tender Relationship Specialty Start Date End Date Vicky Menon NP [address] [place] [address] PCP - General Family Medicine 04/21/22
--- OUTSIDE RECORDS SUMMARY | 2025-03-06 11:00 | XMS_ITS | Patient Health Record ---
Author Organization [facility] Address [address] [facility] [address] [place] [phone] Care Team Providers Care Welding Equipment Repairer Name Role Phone Niharika Nolan DO Primary Care Provider Kun Melendrez MD, [place] Unavailable [phone] Allergies Allergen (clinical drug ingredient) Drug/Non Drug [...] review and pick correct strength-formulat ion from [employer] options. If intended option is not shown, [...] Problem Status W/U Status Risk Notes Problem Age-related osteoporosis (789136709) Senile/Osteoporo sis without current pathological fracture (M81.0) Active confirmed Problem Age-related osteoporosis (353238569) Post Menopausal Osteoporosis (M81.0) Active confirmed Plan [...] Phosphatase 02/08/2015 Vitamin D 25-OH (not 1,25) 06/19/2017 Vitamin D 25-OH (not 1,25) 07/23/2018 Vitamin D 25-OH (not 1,25) 12/17/2017 DXA 12/27/2019 DXA ( IN HOUSE ONLY) 12/27/2019 Insurance Providers Payer Name Payer Address Payer Phone Subscriber Number Group Number Insured Name Patient Relationship to Insured Coverage Start Date Coverage End Date [facility] [address] [address] [id number] Vinita Heredia Self - patient is the insured [employer] Cop[employer] Coupon Program [address] [id number] [place] [address] [id number] Carsonloni Vinita Self - patient is the insured Medical (General) History Medical History History ICD Code Hypothyroidism IBS Multiple sclerosis - secondary progressi ve Surgical History Surgery Date(Month/Year) Tonsillectomy
--- OUTSIDE RECORDS SUMMARY | 2025-03-06 11:00 | XMS_ITS | Clinical Summary ---
Author Organization [facility] Address [address] [place] [address] Care Team Providers Care Pipelines Laborer Name Role Phone Goldy Slade MD Primary [...] [place] Care Teams Pipelines Laborer Relationship Specialty Start Date End Date Goldy Slade MD PCP - General Family Medicine 05/16/24
== END 2025-03-06 10:02 | disposition home or self-care (01) ==
LOC: HO.HMCFM 09:19
PROVIDERS: PCP Family Medicine; Visit Provider Family Medicine
DX: N39.0 Urinary tract infection, site not specified (principal); E03.9 Hypothyroidism, unspecified; R63.6 Underweight; R35.0 Frequency of micturition; M79.675 Pain in left toe(s)

== ENCOUNTER 2025-03-15 08:33 | Outpatient (REF) | payer MEDICARE, SELFPAY ==
--- OUTSIDE RECORDS SUMMARY | 2024-01-02 17:30 | XMS_ITS ---
Author Organization [facility] Rheumatology Address [address] [phone] Care Team Providers Care Applications Coordinator Name Role Phone Niharika Nolan DO Primary Care Provider Unavailhalie Melendrez MD, [place] Unavailable [phone] Migration, Provider Unavailable Unavailable Allergies Allergen (clinical drug ingredient) Drug/Non Drug Allergy documented on EMR Reaction Allergy Type Onset Date Status tetracycline Tetracycline fever Drug Allergy A ctive REAS[facility]IT [facility] Conversion Encounter Medications Medication SIG (Take, Route, Frequency, Duration) Notes Start Date End Date Status Polyethylene Glycol 3350 *Please review and pick correct strength-formulat ion from [facility] options. If intended option is [...] Active Encounters Encounter Location Date Provider Diagnosis [facility] Rheumatology 500 [facility] [address] [place], [place] [phone] 01/02/2024 Provider Migration Senile/Osteoporosis without current pathological [...] * Vinita TURNERDOB:1960 ( 65 yo F)Acc No.[id number]:01/02/2024 Patient: Vinita MACHADO Provider: Negin Le :1960 A ge:63 Y S ex:Female Date:01/02/2024 Address:[address] [place], [place] [address] [address] Pcp:Niharika Nolan DO Subjective: * Chief Complaints: [...] Electronic signature of Prov ider Migration on 03/15/2025 at 09:35 AM EDT Sign off status: Pending * Provider: Negin gaytan Migration Date: 01/02/2024 Generated for Mohan santiago/Juana/Luisitting on: 0 03/15/2025 09:35 AM EDT
--- OUTSIDE RECORDS SUMMARY | 2025-03-15 09:35 | XMS_ITS | Clinical Summary ---
Author Organization [facility] Address [address] [place] [address] Care Team Providers Care Human Resources Training Manager Name Role Phone Goldy Slade MD Primary [...] [place] Care Teams Human Resources Training Manager Relationship Specialty Start Date End Date Goldy Slade MD PCP - General Family Medicine 05/16/24
--- OUTSIDE RECORDS SUMMARY | 2025-03-15 09:35 | XMS_ITS | Patient Health Record ---
Author Organization [facility] Address [address] [facility] [address] [place] [phone] Care Team Providers Care Net Programmer Analyst Name Role Phone Niharika Nolan DO Primary Care Provider Kun Melendrez MD, [place] Unavailable [phone] Allergies Allergen (clinical drug ingredient) Drug/Non Drug [...] review and pick correct strength-formulat ion from [employer] options. If intended option is not shown, [...] W/U Status Risk Notes Problem Age-related osteoporosis ([id number]) Senile/Osteoporo sis without current pathological fracture (M81.0) Active confirmed Problem Age-related osteoporosis (438048201) Post Menopausal Osteoporosis (M81.0) Active confirmed Plan Of Treatment Pending Test Test Name Order Date Calcium 07/23/2018 Calcium 12/17/2017 Calcium 06/19/2017 DEXA 06/19/2017 DEXA 07/23/2018 DEXA 02/14/2016 DEXA 02/14/2016 Osteoporosis Panel: 25-OH vi tamin D ----- PTH INTACT--------(IgG, IgA) anti-transglutaminase----- Calcium Phosphorus--------- Creatinine Alkaline Phosphatase 02/08/2015 Osteoporosis Panel: 25-OH vi tamin D ----- PTH INTACT--------(IgG, IgA) anti-transglutaminase----- Calcium Phosphorus--------- Creatinine Alkaline Phosphatase 02/14/2016 Vitamin D 25-OH (not 1,25) 07/23/2018 Vitamin D 25-OH (not 1,25) 12/17/2017 Vitamin D 25-OH (not 1,25) 06/19/2017 DXA 12/27/2019 DXA ( IN HOUSE ONLY) 12/27/2019 Insurance Providers Payer Name Payer Address Payer Phone Subscriber Number Group Number Insured Name Patient Relationship to Insured Coverage Start Date Coverage End Date [facility] [address] [address] [place], [place] [id number] Vinita Heredia Self - patient is the insured [employer] Copay Coupon Program [address] [id number] [place] [address] [id number] Carsonloni Vinita Self - patient is the insured Medical (General) History Medical History History ICD Code Hypothyroidism IBS Multiple sclerosis - secondary progressi ve Surgical History Surgery Date(Month/Year) Tonsillectomy
--- OUTSIDE RECORDS SUMMARY | 2025-03-15 09:35 | XMS_ITS | Clinical Summary ---
Author Organization [facility] Address [address] [place] [address] Care Team Providers Care Inspector Returned Materials Name Role Phone Unavailable Primary Care Provider [...]
--- OUTSIDE RECORDS SUMMARY | 2025-03-15 09:35 | XMS_ITS | Clinical Summary ---
Author Organization [facility] Address [address] [place] [address] Care Team Providers Care Director Of Photography Name Role Phone Vicky Menon NP Primary Care Provider [phone] Social History Tobacco Use Types Packs/Day Years [...] patient's age to complete this topic Insurance [employer] MEDIC[employer] Care Teams Director Of Photography Relationship Specialty Start Date End Date Vicky Menon NP [address] [place] [address] PCP - General Family Medicine 04/21/22
[2025-03-15 12:40] LABS: Thyroid Stimulating Hormone 2.24 uIU/mL (0.32-4.0)
[2025-03-15 12:44] LABS: Anion Gap 10 (12-20)
[2025-03-15 12:48] LABS: Free T4 (Free Thyroxine) 1.12 ng/dL (0.71-1.85)
[2025-03-15 12:53] LABS: Alanine Aminotransferase 34 U/L (0-31); Albumin Level 4.2 g/dL (3.5-5.0); Alkaline Phosphatase 50 U/L (39-117); Aspartate Amino Transferase 42 U/L (5-31); Blood Urea Nitrogen 17 mg/dL (9-16); Calcium 8.6 mg/dL (8.4-10.2); Carbon Dioxide 28 mmol/L (22-29); Chloride 107 mmol/L (96-108); Estimated Glomerular Filt Rate > 60; Potassium 4.7 mmol/L (3.3-5.1); Sodium 140 mmol/L (135-145); Total Protein 7.2 g/dL (6.5-8.0); Uric Acid 3.7 mg/dL (2.4-5.7)
== END 2025-03-15 08:34 | disposition home or self-care (01) ==
LOC: HO.WFDLDS 08:33
PROVIDERS: Referring Provider Student in an Organized Health Care Education/Training Program; Visit Provider Family Medicine
DX: M81.0 Age-related osteoporosis without current pathological fracture (principal); M79.675 Pain in left toe(s); E03.9 Hypothyroidism, unspecified; R79.89 Other specified abnormal findings of blood chemistry
CPT/HCPCS: 36415; 80053; 82306; 84439; 84443; 84480; 84550

== ENCOUNTER 2025-03-21 10:15 | Outpatient (AMB) | payer MEDICARE, SELFPAY ==
--- OUTSIDE RECORDS SUMMARY | 2024-01-02 17:30 | XMS_ITS ---
Author Organization [facility] Rheumatology Address [address] [phone] Care Team Providers Care Ballet Teacher Name Role Phone Niharika Nolan DO Primary Care Provider Unavailhalie Melendrez MD, [place] Unavailable [phone] Migration, Provider Unavailable Unavailable Allergies Allergen (clinical drug ingredient) Drug/Non Drug Allergy documented on EMR Reaction Allergy Type Onset Date Status tetracycline Tetracycline fever Drug Allergy A ctive REAS[facility]ISIT [facility] Con[facility] Encounter Medications Medication SIG (Take, Route, Frequency, Duration) Notes Start Date End Date Status Polyethylene Glycol 3350 *Please review and pick correct strength-formulat ion from [facility] options. If intended option is not [...] Active Encounters Encounter Location Date Provider Diagnosis [facility] Rheumatology 500 [facility] [address] [place], [place] [phone] 01/02/2024 Provider Migration Senile/Osteoporosis without current pathological [...] * Vinita TURNERDOB:1960 ( 65 yo F)Acc No.[id number]:01/02/2024 Patient: Vinita MACHADO Provider: Negin Le :1960 A ge:63 Y S ex:Female Date:01/02/2024 Address:[address] [place], [place] [address] [address] Pcp:Niharika Nolan DO Subjective: * Chief Complaints: [...] Electronic signature of Prov ider Migration on 03/21/2025 at 11:23 AM EDT Sign off status: Pending * Provider: Negin gaytan Migration Date: 01/02/2024 Generated for Mohan santiago/Juana/Luisitting on: 0 03/21/2025 11:23 AM EDT
--- NOTE | 2025-03-21 10:08 | MHC.PC.OV ---
Intake Visit Reasons: f/u labs Intake Note: Vinita presents for a telehealth appointment to go over her latest lab results. Patient would like to discuss the medication Linzess for constipation. Allergies tetracycline Allergy (Mild, Verified 03/21/25 10:09) Rash Medication List - Last Reconciled 03/21/25 by Goldy Slade MD calcium carbonate-vitamin D3 600 mg-62.5 mcg (2,500 unit) 1 cap PO DAILY cyanocobalamin (vitamin B-12) (B-12 DOTS) 2,000 mcg PO DAILY denosumab (Prolia) 60 mg subcut [id number] 6 months estradiol 0.01%(0.1mg/gram) (Estrace) 0.5 appful vaginal 3XW 90 days ruhymbdw-pvjsfzart-gxmr pr con 15 billion cell-170 mg (Ultra Donna Plus) caps PO levothyroxine 100 mcg PO DAILY potassium gluconate 595 mg PO DAILY venlafaxine ER 75 mg PO BID Tobacco use date assessed: 03/21/25 Dental Screening Dental Screen Date: 03/21/25 Did you have a dental visit in the last 12 months?: Yes Did you have a dental problem in the last 6 months where you did not have access to dental care?: No Was dental information given to patient?: Patient declined HPI f/u labs HPI Details 65 y/o female presents to f/u labs. Labs drawn 03/15/25. Reviewed labs with pt. Elevated liver enzymes - AST 42, ALT 34. Vitamin D level 78.2 ng/mL.TSH 2.24 uIU/ Free T4 1.12 ng/dL. Total T3 93 ng/dL. Ongoing complaints of constipation. HPI Comments History of Present Illness Details Documentation assistance for Goldy Slade MD, was provided by Luc Horton,? Deposit Refund Clerk on 03/21/2025 at 10:46 AM EST. I, Dr. Slade, have read, observed, and verified documentation. ? PFSH Medical History 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, secondary progressive Screening for osteoporosis Screening for cervical cancer Microalbuminuria Breast cancer screening by mammogram Nocturia Incomplete bladder emptying Hypothyroidism (acquired) Surgical History Hx of tonsillectomy Family History Family/Other Breast cancer Father Heart disease Brother Cancer of kidney Social History (Updated 03/21/25 @ 10:13 by Lizette Burgos CMA) Household Members: Spouse Housing: House Alcohol intake: never Patient Tobacco Use Status: Never used Tobacco e-Cigarette/Vaping Use: Never Used Second Hand Smoke Exposure: No service: No Current occupational status: retired Current occupational exposures/hazards: No Sexual orientation: Straight/Heterosexual Gender identity: Female Cognitive needs: No Hearing needs: No Vision needs: Yes (Patient wears reading glasses.) Questionnaire Thrive Questionnaire Date Thrive assessed: 09/06/24 I am a: Patient What is your living situation today?: I have a steady place to live Within the past 12 months, did the food you bought not last and you didn't have the money to get more?: Never true Within the past 12 months, did you worry whether your food would run out before you got money to buy more?: Never true Do you have trouble paying for medicines?: No Do you have trouble getting transportation to medical appointments?: No Do you have trouble paying your heating and electricity bill?: No Do you have trouble taking care of your child, family member or friend?: No Do you have trouble with day-to-day activities such as bathing, preparing meals, shopping, managing finances, etc.?: No Are you currently unemployed and looking for a job?: No Are you interested in more education?: No Please select the resources that you would like help with: None Currently or been in a relationship where the following occur: No concerns reported THRIVE Score: 0 AUDIT C Alcohol Use Questionnaire (AUDIT-C) 2. How many drinks containing alcohol do you have on a typical day when you are drinking?: 1 or 2 Total Score: 0 JAYLA-7 AMB Questionnaire JAYLA-7 Date JAYLA - 7 assessed: 09/13/24 Source: Developed by Drs. Gabriele Dominguez, Jolene Heredia, Hammad Hess and colleagues, with an educational starr from [employer]. Review of Systems Const Denies chills, Denies fatigue, Denies fever(s), Denies headache(s) and Denies weakness ENT Denies dizziness and Denies headache(s) Card Denies dyspnea Resp Denies cough, Denies dyspnea, Denies wheezing and Denies other (shortness of breath) Musc Denies numbness and Denies tingling Neuro Denies dizziness, Denies headache(s), Denies numbness, Denies tingling and Denies weakness Psych Denies anxiety and Denies depression Endo Denies fatigue Aller/Immun Denies wheezing Physical exam (Primary Care) Tobacco/Smoking Status: Tobacco use Status Tobacco use date assessed 03/21/25 03/21/25 10:14 Patient Tobacco Use Status Never used Tobacco 03/21/25 10:14 e-Cigarette/Vaping Use Never Used 03/21/25 10:14 Thrive Assessment: Date of Thrive Assessment Date Thrive assessed 09/06/24 03/21/25 10:14 Currently or been in a relationship where the following occur: No concerns reported Telehealth Telehealth Telehealth Platform: Telephone Location of provider rendering services: practice address Location of patient: address on file Patient Identification confirmed using: Name, : Yes Telehealth method: voice only Patient verbally consented to treatment: Yes Patient verbally consented to billing insurance company: Yes Patient informed of any privacy concerns related to visit: Yes Minutes spent on Phone/Video with Pt.: 9 Coding Level of Care Code Tele Est Pt Level 2 (73041) Diagnoses Elevated liver enzymes R74.8 Hypothyroidism (acquired) E03.9 Low vitamin D level R79.89 Constipation K59.00 Assessment & Plan Assessment & Plan (1) Elevated liver enzymes: Code(s): R74.8 - Abnormal levels of other serum enzymes Category: Medical Plan: Mildly elevated liver enzymes Increase hydration Will recheck in a couple of months. If still elevated will get an ultrasound liver She already has a referral to gastroenterology (2) Hypothyroidism (acquired): Code(s): E03.9 - Hypothyroidism, unspecified Category: Medical Plan: Thyroid hormone levels are within normal range Continue levothyroxine as prescribed (3) Low vitamin D level: Code(s): R79.89 - Other specified abnormal findings of blood chemistry Category: Medical Plan: Vitamin-D level is within normal range (4) Constipation: Code(s): K59.00 - Constipation, unspecified Category: Medical Plan: Ongoing problems with constipation Patient resists drinking significant amounts of water during the day because she says that it makes her had difficulty being out in about without having to run to the bathroom. Encouraged her to take small frequent sips of fluids to keep herself from becoming dehydrated She can taper off her fluids in the evening She would like to try Linzess-script sent Orders: Orders Comprehensive [place]. Panel Fast Today R74.8 - Abnormal levels of other serum enzymes, Z00.00 - Encounter for general adult medical examination without abnormal findings Medications: New linaclotide (Linzess) 72 mcg PO QAM 90 caps 3RF 90 days
--- OUTSIDE RECORDS SUMMARY | 2025-03-21 11:23 | XMS_ITS | Patient Health Record ---
Author Organization [facility] Address [address] [facility] [address] [place] [phone] Care Team Providers Care Ground Wood Supervisor Name Role Phone Niharika Nolan DO Primary Care Provider Kun Melendrez MD, [place] Unavailable [phone] Allergies Allergen (clinical drug ingredient) Drug/Non Drug [...] review and pick correct strength-formulat ion from [employer] options. If intended option is not shown, [...] W/U Status Risk Notes Problem Age-related osteoporosis (835881143) Senile/Osteoporo sis without current pathological fracture (M81.0) Active confirmed Problem Age-related osteoporosis (377445713) Post Menopausal Osteoporosis (M81.0) Active confirmed Plan [...] Insured Coverage Start Date Coverage End Date [facility] [address] [address] [place], [place] [id number] Vinita Heredia Self - patient is the insured [employer] Copay Coupon Program [address] [id number] [place] [address] [id number] Carsonloni Vinita Self - patient is the insured Medical (General) History Medical History History ICD Code Hypothyroidism IBS Multiple sclerosis - secondary progressi ve Surgical History Surgery Date(Month/Year) Tonsillectomy
--- OUTSIDE RECORDS SUMMARY | 2025-03-21 11:23 | XMS_ITS | Clinical Summary ---
Author Organization [facility] Address [address] [place] [address] Care Team Providers Care Gaming Associate Name Role Phone Unavailable Primary Care Provider [...]
--- OUTSIDE RECORDS SUMMARY | 2025-03-21 11:23 | XMS_ITS | Clinical Summary ---
Author Organization [facility] Address [address] [place] [address] Care Team Providers Care Piano Case Maker Name Role Phone Goldy Slade MD Primary [...] [place] Care Teams Piano Case Maker Relationship Specialty Start Date End Date Goldy Slade MD PCP - General Family Medicine 05/16/24
== END 2025-03-21 11:18 | disposition home or self-care (01) ==
LOC: HO.HMCFM 10:15
PROVIDERS: PCP Family Medicine; Visit Provider Family Medicine
DX: R74.8 Abnormal levels of other serum enzymes (principal); E03.9 Hypothyroidism, unspecified; R79.89 Other specified abnormal findings of blood chemistry; K59.00 Constipation, unspecified

== ENCOUNTER 2025-03-28 09:59 | Outpatient (AMB) | payer MEDICARE, SELFPAY ==
--- OUTSIDE RECORDS SUMMARY | 2024-01-02 17:30 | XMS_ITS ---
Author Organization [facility] Rheumatology Address [address] [phone] Care Team Providers Care Motor Vehicle Assembler Name Role Phone Niharika Nolan DO Primary Care Provider Unavailhalie Melendrez MD, [place] Unavailable [phone] Migration, Provider Unavailable Unavailable Allergies Allergen (clinical drug ingredient) Drug/Non Drug Allergy documented on EMR Reaction Allergy Type Onset Date Status tetracycline Tetracycline fever Drug Allergy A ctive REAS[facility] Encounter Medications Medication SIG (Take, Route, Frequency, Duration) Notes Start Date End Date Status Polyethylene Glycol 3350 *Please review and pick correct strength-formulat ion [facility] options. If intended option is not [...] Active Encounters Encounter Location Date Provider Diagnosis [facility] Rheumatology 500 [facility] [address] [place], [place] [phone] 01/02/2024 Provider Migration Senile/Osteoporosis without current pathological [...] * Vinita TURNERDOB:1960 ( 65 yo F)Acc No.[id number]:01/02/2024 Patient: Vinita MACHADO Provider: Negin Le :1960 A ge:63 Y S ex:Female Date:01/02/2024 Address:[address] [place], [place] [address] [address] Pcp:Niharika Nolan DO Subjective: * Chief Complaints: [...] Electronic signature of Prov ider Migration on 03/28/2025 at 11:41 AM EDT Sign off status: Pending * Provider: Negin gaytan Migration Date: 0 01/02/2024 Generated for Mohan santiago/Juana/Afia on: 1 11:41 AM EDT
[2025-03-28 10:25] VITALS: BMI 17.0
--- NOTE | 2025-03-28 10:25 | A.OFFVIS_ITS ---
Vital Signs 03/28/25 10:25 Height 5 ft 1 in Weight 90 lb BMI 17.0 Intake Visit Reasons: New Pt - Lt Great Toe Px & Rt Foot Weakness Intake Note: Vinita is a 65 year old female who presents today as a new patient with complaints of Left Great Toe Pain and Right Foot Weakness. Hx of MS. Pt states her pain in her left hallux has improved but she notes that her 4th toe on her right foot is weak and she notes a possible wart on the medial side of her right heel. She has not had any previous treatment and this has been an on going issue for 6-8 months. No XR done Allergies tetracycline Allergy (Mild, Verified 03/28/25 10:27) Rash HPI HPI New Pt - Lt Great Toe Px & Rt Foot Weakness: Details: The patient is a 65-year-old female past medical history of multiple sclerosis, hypothyroidism, osteoporosis, history of left footdrop, presenting with right foot toe deformities and left foot big toe joint pain. She has a history of multiple sclerosis, which is secondary progressive, leading to progressive weakness and drop foot, particularly on the left side. When she initially was diagnosed, she had an AFO brace use for her left leg. She states that she no longer uses this anterior foot drop had improved over time however she does notice that she feels she does not tack picker her left foot as much and has had her foot get caught while walking a few times. She denies any trips and falls, or any close encounters. She had a recent left big toe joint flare where she had pain and was worked up for gout. She states that her lab tests were negative for gout and so she was treated conservatively without any medications. She noted that the pain slowly improved. She does not have any pain to the big toe joint at present. She also notes that she has noticed her right 4th toe has been 'dropping' over time. She denies any pain or weakness to her toes, she denies any burning numbness or tingling. [facility] Medical History 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, secondary progressive Screening for osteoporosis Screening for cervical cancer Microalbuminuria Breast cancer screening by mammogram Nocturia Incomplete bladder emptying Hypothyroidism (acquired) Surgical History Hx of tonsillectomy Family History Family/Other Breast cancer Father Heart disease Brother Cancer of kidney Social History (Updated 03/21/25 @ 10:13 by Lizette Burgos CMA) Household Members: Spouse Housing: House Alcohol intake: never Patient Tobacco Use Status: Never used Tobacco e-Cigarette/Vaping Use: Never Used Second Hand Smoke Exposure: No service: No Current occupational status: retired Current occupational exposures/hazards: No Sexual orientation: Straight/Heterosexual Gender identity: Female Cognitive needs: No Hearing needs: No Vision needs: Yes (Patient wears reading glasses.) Review of Systems Const All systems reviewed & are unremarkable except as noted in HPI and below Physical Exam Vital Signs: BMI result Body Mass Index 17.0 Extrem Other: *Bilateral Lower Extremity Focused Exam Vascular: DP/PT 2/4, CFT less than 3 seconds all digits. Temperature gradient warm to cool. No pedal edema. Derm: right medial ankle 0.1cm x 0.1cm orange colored nevus lesion, circular/well-circumscribed, flat, epithelial borders. No clinical signs of infection. Neuro: Protective sensation grossly intact to bilateral lower extremities. MSK: Extension deformity of 2nd/3rd MTPs bilaterally worse right than left. Mild dorsiflexion instability/positive Tayo's test right 2nd Metatarsal- phalangeal joint without pain. Hallux dorsiflexion 45 degrees bilaterally. Mild dorsal 1st metatarsal head bony prominence left foot. Gait exam: Early heel lift bilaterally with mild drop foot to left foot. Angle of gait skewed towards the patient's left side. Assessment & Plan Assessment & Plan (1) Multiple sclerosis, secondary progressive: Code(s): G35 - Multiple sclerosis Category: Medical Plan: * Discussed that her pedal deformities her feet may be secondary to her progressive neurologic condition. However, she has no preulcerative lesions or acute ligamentous instability/injuries at this time. We will continue to monitor. (2) Hallux limitus of left foot: Code(s): M20.5X2 - Other deformities of toe(s) (acquired), left foot Category: Medical Plan: * X-ray left foot three views. 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 (3) Foot drop, left foot: Code(s): M21.372 - Foot drop, left foot Category: Medical Plan: * Recommended the patient she may require a new AFO brace to avoid any trip/fall/close encounters. Will discuss with the patient further at next visit. (4) Acquired hammertoes of both feet: Code(s): M20.41 - Other hammer toe(s) (acquired), right foot; M20.42 - Other hammer toe(s) (acquired), left foot Category: Medical Plan: * Rx right foot x-rays three views * Recommended hammertoe crest pad Orders: Orders XR Foot Sergei 3V Today M20.5X2 - Other deformities of toe(s) (acquired), left foot, M77.41 - Metatarsalgia, right foot, M77.42 - Metatarsalgia, left foot Coding Level of Care Code New Pt Level 4 (04231) Diagnoses Multiple sclerosis, secondary progressive G35 Hallux limitus of left foot M20.5X2 Foot drop, left foot M21.372 Acquired hammertoes of both feet M20.41; M20.42 Time Spent (min) 45
--- OUTSIDE RECORDS SUMMARY | 2025-03-28 11:41 | XMS_ITS | Clinical Summary ---
Author Organization [facility] Address [address] [place] [address] Care Team Providers Care Director Business Development Name Role Phone Vicky Menon NP Primary Care Provider [phone] Social History Tobacco Use Types Packs/Day Years [...] patient's age to complete this topic Insurance [facility] MEDICARE Care Teams Director Business Development Relationship Specialty Start Date End Date Vicky Menon NP [address] [place] [address] PCP - General Family Medicine 04/21/22
--- OUTSIDE RECORDS SUMMARY | 2025-03-28 11:42 | XMS_ITS | Clinical Summary ---
Author Organization [facility] Address [address] [place] [address] Care Team Providers Care Information Services Tech Name Role Phone Unavailable Primary Care Provider [...]
--- OUTSIDE RECORDS SUMMARY | 2025-03-28 11:42 | XMS_ITS | Clinical Summary ---
Author Organization [facility] Address [address] [place] [address] Care Team Providers Care School Librarian Name Role Phone Goldy Slade MD Primary [...] Last Done Comments Breast Cancer Screening 1960 Colorectal Cancer Screening: Colonoscopy 1960 DTaP,Tdap,and Td Vaccines (1 - Tdap) 1977 Pneumococcal Vaccine: 50+ Ye ars (1 of 1 - PCV) 02/05/2008 Zoster Vaccines (1 of 2) 02/05/2008 Falls Risk Assessment 02/15/2024 Hepatitis C Screening [...] [place] Care Teams School Librarian Relationship Specialty Start Date End Date Goldy Slade MD PCP - General Family Medicine 05/16/24
--- OUTSIDE RECORDS SUMMARY | 2025-03-28 11:42 | XMS_ITS | Patient Health Record ---
Author Organization [facility] Address [address] [facility] [address] [place] [phone] Care Team Providers Care Design Supervisor Name Role Phone Niharika Nolan DO Primary Care Provider Kun Melendrez MD, [place] Unavailable [phone] Allergies Allergen (clinical drug ingredient) Drug/Non Drug [...] review and pick correct strength-formulat ion from [employer] options. If intended option is not shown, [...] W/U Status Risk Notes Problem Age-related osteoporosis (808346954) Senile/Osteoporo sis without current pathological fracture (M81.0) Active confirmed Problem Age-related osteoporosis (924658648) Post Menopausal Osteoporosis (M81.0) Active confirmed Plan Of Treatment Pending Test Test Name Order Date Calcium 12/17/2017 Calcium 07/23/2018 Calcium 06/19/2017 DEXA 02/14/2016 DEXA 02/14/2016 DEXA 07/23/2018 DEXA 06/19/2017 Osteoporosis Panel: 25-OH vi tamin D ----- PTH INTACT--------(IgG, IgA) anti-transglutaminase----- Calcium Phosphorus--------- Creatinine Alkaline Phosphatase 02/08/2015 Osteoporosis Panel: 25-OH vi tamin D ----- PTH INTACT--------(IgG, IgA) anti-transglutaminase----- Calcium Phosphorus--------- Creatinine Alkaline Phosphatase 02/14/2016 Vitamin D 25-OH (not 1,25) 12/17/2017 Vitamin D 25-OH (not 1,25) 06/19/2017 Vitamin D 25-OH (not 1,25) 07/23/2018 DXA 12/27/2019 DXA ( IN HOUSE ONLY) 12/27/2019 Insurance Providers Payer Name Payer Address Payer Phone Subscriber Number Group Number Insured Name Patient Relationship to Insured Coverage Start Date Coverage End Date [facility] [address] [address] [place], [place] [id number] Vinita Heredia Self - patient is the insured [employer] Program [address] [id number] [place] [address] [id number] Carsonloni Vinita Self - patient is the insured Medical (General) History Medical History History ICD Code Hypothyroidism IBS Multiple sclerosis - secondary progressi ve Surgical History Surgery Date(Month/Year) Tonsillectomy
== END 2025-03-28 10:53 | disposition home or self-care (01) ==
LOC: HO.HPODS 09:59
PROVIDERS: PCP Family Medicine; Visit Provider Student in an Organized Health Care Education/Training Program
DX: G35.D Multiple sclerosis, unspecified (principal); M20.5X2 Other deformities of toe(s) (acquired), left foot; M21.372 Foot drop, left foot; M20.41 Other hammer toe(s) (acquired), right foot; M20.42 Other hammer toe(s) (acquired), left foot
CPT/HCPCS: 99204

== ENCOUNTER → 2025-03-28 09:59 | Outpatient (BNVA) | payer MEDICARE, SELFPAY | PROVIDERS: PCP Family Medicine; Visit Provider Student in an Organized Health Care Education/Training Program | DX: M20.5X2 Other deformities of toe(s) (acquired), left foot (principal); M21.372 Foot drop, left foot; M20.41 Other hammer toe(s) (acquired), right foot; M20.42 Other hammer toe(s) (acquired), left foot; G35.C0 Secondary progressive multiple sclerosis, unspecified | CPT/HCPCS: 99202 ==

== ENCOUNTER 2025-04-01 10:28 | Outpatient (REF) | payer MEDICARE, SELFPAY ==
--- OUTSIDE RECORDS SUMMARY | 2024-01-02 17:30 | XMS_ITS ---
Author Organization [facility] Rheumatology Address [address] [phone] Care Team Providers Care Byproduct Engineer Name Role Phone Niharika Nolan DO Primary Care Provider Unavailhalie Melendrez MD, [place] Unavailable [phone] Migration, Provider Unavailable Unavailable Allergies Allergen (clinical drug ingredient) Drug/Non Drug Allergy documented on EMR Reaction Allergy Type Onset Date Status tetracycline Tetracycline fever Drug Allergy A ctive REAS[facility]ISIT [facility] Encounter Medications Medication SIG (Take, Route, Frequency, Duration) Notes Start Date End Date Status Polyethylene Glycol 3350 *Please review and pick correct strength-formulat ion from [facility] options. If intended option is not [...] Active Encounters Encounter Location Date Provider Diagnosis [facility] Rheumatology 500 [facility] [address] [place], [place] [phone] 01/02/2024 Provider Migration Senile/Osteoporosis without current pathological [...] * Vinita TURNERDOB:1960 ( 65 yo F)Acc No.[id number]:01/02/2024 Patient: Vinita MACHADO Provider: Negin Le :1960 A ge:63 Y S ex:Female Date:01/02/2024 Address:[address] [place], [place] [address] [address] Pcp:Niharika Nolan DO Subjective: * Chief Complaints: [...] Electronic signature of Prov ider Migration on 04/01/2025 at 10:31 AM EDT Sign off status: Pending * Provider: Negin gaytan Migration Date: 0 01/02/2024 Generated for Mohan santiago/Juana/Luisitting on: 1 10:31 AM EDT
--- NOTE | ~2025-04-01 | XR_ITS ---
CLINICAL HISTORY: M77.41 - Metatarsalgia, right foot --- Additional Notes or Special Instructions: Please perform weight-bearing x-rays bilaterally Radiographs of the right foot, 3 views Comparison: None available Findings: No fracture or dislocation. Mild degenerative change of the 1st metatarsophalangeal joint. No soft tissue swelling. Impression: No acute findings. Radiographs of the left foot, 3 views Comparison: None available Findings: No fracture or dislocation. Mild degenerative change of the 1st metatarsophalangeal joint. No soft tissue swelling. Impression: No acute findings. This document has been electronically signed by: Delmis Berger MD on 04/06/2025 13:40:44
--- OUTSIDE RECORDS SUMMARY | 2025-04-01 10:32 | XMS_ITS | Clinical Summary ---
Author Organization [facility] Address [address] [place] [address] Care Team Providers Care Visual C Developer Name Role Phone Vicky Menon NP Primary Care Provider [phone] Social History Tobacco Use Types Packs/Day Years [...] patient's age to complete this topic Insurance [facility] MEDICARE Care Teams Visual C Developer Relationship Specialty Start Date End Date Vicky Menon NP [address] [place] [address] PCP - General Family Medicine 04/21/22
--- OUTSIDE RECORDS SUMMARY | 2025-04-01 10:32 | XMS_ITS | Clinical Summary ---
Author Organization [facility] Address [address] [place] [address] Care Team Providers Care Slitter Operator Name Role Phone Goldy Slade MD Primary [...] [place] Care Teams Slitter Operator Relationship Specialty Start Date End Date Goldy Slade MD PCP - General Family Medicine 05/16/24
--- OUTSIDE RECORDS SUMMARY | 2025-04-01 10:32 | XMS_ITS | Patient Health Record ---
Author Organization [facility] Address [address] [facility] [address] [place] [phone] Care Team Providers Care Casket Inspector Name Role Phone Niharika Nolan DO Primary Care Provider Kun Melendrez MD, [place] Unavailable [phone] Allergies Allergen (clinical drug ingredient) Drug/Non Drug [...] review and pick correct strength-formulat ion from [employer] options. If intended option is not [...] W/U Status Risk Notes Problem Age-related osteoporosis (171579929) Senile/Osteoporo sis without current pathological fracture (M81.0) Active confirmed Problem Age-related osteoporosis (117901259) Post Menopausal Osteoporosis (M81.0) Active confirmed Plan Of Treatment Pending Test Test Name Order Date Calcium 12/17/2017 Calcium 06/19/2017 Calcium 07/23/2018 DEXA 07/23/2018 DEXA 06/19/2017 DEXA 02/14/2016 DEXA 02/14/2016 Osteoporosis Panel: 25-OH [...] Insured Coverage Start Date Coverage End Date [facility] [address] [address] [place], [place] [id number] Vinita Heredia Self - patient is the insured [employer] Program [address] [id number] [place] [address] [id number] Carsonloni Vinita Self - patient is the insured Medical (General) History Medical History History ICD Code Hypothyroidism IBS Multiple sclerosis - secondary progressi ve Surgical History Surgery Date(Month/Year) Tonsillectomy
--- OUTSIDE RECORDS SUMMARY | 2025-04-01 10:32 | XMS_ITS | Clinical Summary ---
Author Organization [facility] Address [address] [place] [address] Care Team Providers Care Consulting Nurse Name Role Phone Unavailable Primary Care Provider [...]
== END 2025-04-01 10:29 | disposition home or self-care (01) ==
LOC: HO.XRAY 10:28
PROVIDERS: PCP Family Medicine; Visit Provider Radiology Diagnostic Radiology
DX: M77.41 Metatarsalgia, right foot (principal); M77.42 Metatarsalgia, left foot; M20.5X2 Other deformities of toe(s) (acquired), left foot
CPT/HCPCS: 73630

== ENCOUNTER → 2025-04-01 10:33 | Outpatient (BNV) | payer MEDICARE, SELFPAY | PROVIDERS: PCP Family Medicine; Visit Provider Radiology Diagnostic Radiology | DX: M77.41 Metatarsalgia, right foot (principal) | CPT/HCPCS: 73630 ==

== ENCOUNTER 2025-04-19 09:56 | Outpatient (AMB) | payer MEDICARE, SELFPAY ==
--- OUTSIDE RECORDS SUMMARY | 2024-01-02 17:30 | XMS_ITS ---
Author Organization [facility] Rheumatology Address [address] [id number] Care Team Providers Care Township Clerk Name Role Phone Niharika Nolan DO Primary Care Provider Unavailhalie Melendrez MD, [place] Unavailable [phone] Migration, Provider Unavailable Unavailable Allergies Allergen (clinical drug ingredient) Drug/Non Drug Allergy documented on EMR Reaction Allergy Type Onset Date Status tetracycline Tetracycline fever Drug Allergy A ctive [facility] Encounter Medications Medication SIG (Take, Route, [...] Active Encounters Encounter Location Date Provider Diagnosis [facility] Rheumatology 500 [facility] [address] [place], [place] [phone] 01/02/2024 Provider Migration Senile/Osteoporosis without current pathological [...] * Vinita TURNERDOB:1960 ( 65 yo F)Acc No.[id number]:01/02/2024 Patient: Vinita MACHADO Provider: Negin Le :1960 A ge:63 Y S ex:Female Date:01/02/2024 Address:[address] [place], [place] [address] [address] Pcp:Niharika Nolan DO Subjective: * Chief Complaints: [...] Electronic signature of Prov ider Migration on 04/19/2025 at 11:58 AM EDT Sign off status: Pending * Provider: Negin gaytan Migration Date: 0 01/02/2024 Generated for Mohan santiago/Juana/Luisitting on: 1 11:58 AM EDT
--- NOTE | 2025-04-19 10:04 | A.OFFVIS_ITS ---
Vital Signs 04/19/25 10:49 Height 5 ft 1 in Weight 90 lb BMI 17.0 Intake Visit Reasons: Lt Great Toe Px & Rt Foot Intake Note: Vinita is 65 year old female who presents to the office today for a follow up for Lt Great Toe Px & Rt Foot. At last visit pt was informed that she may require a new AFO brace to avoid any trip/fall/close encounters which will be discussed at todays visit and Left foot X-rays completed on 03/28/25. Pt states she hasn't seen any improvement since her last visit. Allergies tetracycline Allergy (Mild, Verified 04/19/25 10:50) Rash HPI HPI Lt Great Toe Px & Rt Foot: Details: The patient is a 65-year-old female past medical history of multiple sclerosis, hypothyroidism, osteoporosis, history of left foot-drop, returning for 3 week follow up of right foot toe deformities and left foot big toe joint pain. Patie nt states that she purchased both hammertoe crest pads and found them to be uncomfortable. She did purchase new [id number] orthotics, which she does find helpful. She describes her left big toe joint pain has worse during the night, especially when her bed sheets rub against her foot. She describes it as a difference in sensation to other parts of her foot. History: She has a history of multiple sclerosis, which is secondary progressive, leading to progressive weakness and drop foot, particularly on the left side. When she initially was diagnosed, she had an AFO brace use for her left leg. She states that she no longer uses this anterior foot drop had improved over time however she does notice that she feels she does not meat pickler her left foot as much and has had her foot get caught while walking a few times. She denies any trips and falls, or any close encounters. [facility] Medical History 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, secondary progressive Screening for osteoporosis Screening for cervical cancer Microalbuminuria Breast cancer screening by mammogram Nocturia Incomplete bladder emptying Hypothyroidism (acquired) Surgical History Hx of tonsillectomy Family History Family/Other Breast cancer Father Heart disease Brother Cancer of kidney Social History (Updated 03/21/25 @ 10:13 by Lizette Burgos [facility]) Household Members: Spouse Housing: House Alcohol intake: never Patient Tobacco Use Status: Never used Tobacco e-Cigarette/Vaping Use: Never Used Second Hand Smoke Exposure: No service: No Current occupational status: retired Current occupational exposures/hazards: No Sexual orientation: Straight/Heterosexual Gender identity: Female Cognitive needs: No Hearing needs: No Vision needs: Yes (Patient wears reading glasses.) Review of Systems Const All systems reviewed & are unremarkable except as noted in HPI and below Physical Exam Vital Signs: BMI result Body Mass Index 17.0 Extrem Other: *Bilateral Lower Extremity Focused Exam Vascular: DP/PT 2/4, CFT less than 3 seconds all digits. Temperature gradient warm to cool. No pedal edema. Derm: right medial ankle 0.1cm x 0.1cm orange colored nevus lesion, circular/well-circumscribed, flat, epithelial borders. No clinical signs of infection. Neuro: Protective sensation grossly intact to bilateral lower extremities. Sensory deficit to left medial hallux/arch/first metatarsal dermatome. MSK: Extension deformity of 2nd/3rd MTPs bilaterally worse right than left. Mild dorsiflexion instability/positive Tayo's test right 2nd Metatarsal- phalangeal joint without pain. Hallux dorsiflexion 45 degrees bilaterally. Mild dorsal 1st metatarsal head bony prominence left foot. Gait exam: Early heel lift bilaterally with mild drop foot to left foot. Angle of gait skewed towards the patient's left side, otherwise equal symmetric korey. Results Reviewed Results Reviewed: Podiatry X-ray Read: 04/06/2025 X-ray right foot 3 views (AP, MO, Lateral) reviewed which shows diffuse osteopenia, flexion -adduction deformity of right 4th and 5th digits. Bipartite fibular sesamoid. I personally reviewed the imaging and my findings are listed above. Podiatry X-ray Read: 04/06/2025 X-ray left foot 3 views (AP, MO, Lateral) reviewed which shows mild joint space narrowing of the 1st metatarsophalangeal joint, no obvious flattening of the metatarsal head. Bipartite fibular sesamoid. I personally reviewed the imaging and my findings are listed above. Assessment & Plan Assessment & Plan (1) Peripheral neuritis of left foot: Code(s): G57.92 - Unspecified mononeuropathy of left lower limb Category: Medical Plan: * Patient's 1st ray symptoms appear to be more consistent with neuritis than her 1st MTP arthritis. * Rx capsaicin ointment. Discussed possible Qutenza treatment if symptoms progress to other dermatomes. * Recommended EMG/NCV testing if symptoms progress. * She is already on vitamin D treatment. Recommended alpha-lipoic acid supplementation. (2) Multiple sclerosis, secondary progressive: Code(s): G35 - Multiple sclerosis Category: Medical Plan: * Discussed that her pedal deformities her feet may be secondary to her progressive neurologic condition. However, she has no preulcerative lesions or acute ligamentous instability/injuries at this time. We will continue to monitor. (3) Hallux limitus of left foot: Code(s): M20.5X2 - Other deformities of toe(s) (acquired), left foot Category: Medical Plan: * Reviewed left foot x-rays with the patient. Discussed findings of early arthritis for 1st metatarsophalangeal joint. She was recommended use of her [id number]-pnksryb orthotics. She may require a custom foot orthotic if her symptoms persist. 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 (4) Foot drop, left foot: Code(s): M21.372 - Foot drop, left foot Category: Medical Plan: * The patient has not had any falls/injuries, and has stable equal korey bila teral feet. No use for an AFO at this time. Will continue to monitor for any gait changes. (5) Acquired hammertoes of both feet: Code(s): M20.41 - Other hammer toe(s) (acquired), right foot; M20.42 - Other hammer toe(s) (acquired), left foot Category: Medical Plan: * Reviewed right foot x-rays * She may benefit from a toe seperator however the patient does not have any pain presently or lesions. Medications: New capsaicin 0.1% (Arthritis Pain Relief (capsaicin)) do not wash area for at least 30 min after application 1 appl topical TID 42.5 grams 3RF neuritis G57.92 - Unspecified mononeuropathy of left lower limb Coding Level of Care Code Est Pt Level 3 (50844) Diagnoses Peripheral neuritis of left foot G57.92 Multiple sclerosis, secondary progressive G35 Hallux limitus of left foot M20.5X2 Foot drop, left foot M21.372 Acquired hammertoes of both feet M20.41; M20.42 Time Spent (min) 30
[2025-04-19 10:49] VITALS: BMI 17.0
--- OUTSIDE RECORDS SUMMARY | 2025-04-19 11:58 | XMS_ITS | Clinical Summary ---
Author Organization [facility] Address [address] [place] [address] Care Team Providers Care Information Officer Name Role Phone Goldy Slade MD Primary [...] [place] Care Teams Information Officer Relationship Specialty Start Date End Date Goldy Slade MD PCP - General Family Medicine 05/16/24
--- OUTSIDE RECORDS SUMMARY | 2025-04-19 11:58 | XMS_ITS | Patient Health Record ---
Author Organization [facility] Address [address] [facility] [address] [place] [phone] Care Team Providers Care Life Skills Coordinator Volunteer Name Role Phone Niharika Nolan DO Primary Care Provider Kun Melendrez MD, [place] Unavailable [phone] Allergies Allergen (clinical drug ingredient) Drug/Non Drug [...] review and pick correct strength-formulat ion from [employer] options. If intended option is not shown, [...] W/U Status Risk Notes Problem Age-related osteoporosis (841140581) Senile/Osteoporo sis without current pathological fracture (M81.0) Active confirmed Problem Age-related osteoporosis (411525034) Post Menopausal Osteoporosis (M81.0) Active confirmed Plan Of Treatment Pending Test Test Name Order Date Calcium 06/19/2017 Calcium 12/17/2017 Calcium 07/23/2018 DEXA 07/23/2018 DEXA 02/14/2016 DEXA 02/14/2016 DEXA 06/19/2017 Osteoporosis Panel: 25-OH vi tamin [...] Insured Coverage Start Date Coverage End Date [facility] [address] [address] [place], [place] [id number] Vinita Heredia Self - patient is the insured [employer] Program [address] [id number] [place] [address] [id number] Carsonloni Vinita Self - patient is the insured Medical (General) History Medical History History ICD Code Hypothyroidism IBS Multiple sclerosis - secondary progressi ve Surgical History Surgery Date(Month/Year) Tonsillectomy
--- OUTSIDE RECORDS SUMMARY | 2025-04-19 11:58 | XMS_ITS | Clinical Summary ---
Author Organization [facility] Address [address] [place] [address] Care Team Providers Care Calibration Laboratory Technician Name Role Phone Vicky Menon NP Primary Care Provider [phone] Social History Tobacco Use Types Packs/Day Years [...] - 2023-2 5 season) 2025 RSV Vaccine 50 years and old er and Patients (1 - 1-dose 75+ series) 2033 Hepatitis B Vaccines Aged Out No long er eligible based on patient's age to complete this topic Insurance [facility] MEDICARE Care Teams Calibration Laboratory Technician Relationship Specialty Start Date End Date Vicky Menon NP [address] [place] [address] PCP - General Family Medicine 04/21/22
--- OUTSIDE RECORDS SUMMARY | 2025-04-19 11:58 | XMS_ITS | Clinical Summary ---
Author Organization [facility] Address [address] [place] [address] Care Team Providers Care Drawing Operator Name Role Phone Unavailable Primary Care Provider [...]
== END 2025-04-19 10:38 | disposition home or self-care (01) ==
LOC: HO.HPODS 09:57
PROVIDERS: PCP Family Medicine; Visit Provider Student in an Organized Health Care Education/Training Program
DX: G57.92 Unspecified mononeuropathy of left lower limb (principal); G35.D Multiple sclerosis, unspecified; M20.5X2 Other deformities of toe(s) (acquired), left foot; M21.372 Foot drop, left foot; M20.41 Other hammer toe(s) (acquired), right foot; M20.42 Other hammer toe(s) (acquired), left foot
CPT/HCPCS: 99213

== ENCOUNTER → 2025-04-19 09:56 | Outpatient (BNVA) | payer MEDICARE, SELFPAY | PROVIDERS: PCP Family Medicine; Visit Provider Student in an Organized Health Care Education/Training Program | DX: G57.92 Unspecified mononeuropathy of left lower limb (principal); G35.C0 Secondary progressive multiple sclerosis, unspecified; M20.5X2 Other deformities of toe(s) (acquired), left foot; M21.372 Foot drop, left foot; M20.41 Other hammer toe(s) (acquired), right foot; M20.42 Other hammer toe(s) (acquired), left foot | CPT/HCPCS: 99212 ==

== ENCOUNTER 2025-05-12 10:17 | Outpatient (AMB) | payer MEDICARE, SELFPAY ==
--- OUTSIDE RECORDS SUMMARY | 2024-01-02 16:30 | XMS_ITS ---
Author Organization [facility] Rheumatology Address [address] [id number] Care Team Providers Care Supervisor Show Operations Name Role Phone Niharika Nolan DO Primary Care Provider Unavailhalie Melendrez MD, [place] Unavailable [phone] Migration, Provider Unavailable Unavailable Allergies Allergen (clinical drug ingredient) Drug/Non Drug Allergy documented on EMR Reaction Allergy Type Onset Date Status tetracycline Tetracycline fever Drug Allergy A ctive [facility] Encounter Medications Medication SIG (Take, Route, Frequency, Duration) Notes Start Date End Date Status Polyethylene Glycol 3350 *Please review and pick correct strength-formulat [facility] from [facility] options. If intended option is not shown, discontinue and re-order from Quick Search* Active Prolia 60 MG/ML 60 mg subcutaneously every 6 months Active Vitamin B-12 1000 MCG 1 tab(s) orally once a day Active Vitamin D3 125 MCG (5000 UT) 1 cap(s) orally once a day Active Prempro 0.45-1.5 MG orally Unknown Levothyroxine Sodium 100 MCG 6 tab (s) orally q week Active Caffeine 200 MG orally Acti ve HYCOSAMINE 0.125MG 1 TAB PO BID *Please revie w for potential replacement for e-prescription and drug interaction check* Active Venlafaxine HCl 75 MG orally bid Active Prolia 60 MG/ML 60 mg subcutaneously every 6 months; Duration: 12 month(s) Active Encounters Encounter Location Date Provider Diagnosis [facility] Rheumatology 500 [facility] [address] [place], [place] [id number] 01/02/2024 Provider Migration Senile/Osteoporosis without current pathological fracture M81.0 and Post Menopausal Osteoporosis M81.0 Assessments Encounter Date Diagnosis (ICD Code) Assessment Notes Treatment Notes Treatment Clinical Notes Section Notes 01/02/2024 Senile/Osteoporos is without current pathological fracture (ICD-10 - M81.0) 01/02/2024 Post Menopausal Osteoporosis (ICD-10 - M81.0) Plan Of Treatment Medication Medication Name Sig Start Date Stop Date Notes Prolia 60 MG/ML 60 mg subcutaneously every 6 months Prolia 60 MG/ML 60 mg subcutaneously every 6 months; Duration: 12 month(s) Progress Notes * Vinita TURNERDOB:1960 ( 65 yo F)Acc No.[id number]:01/02/2024 Patient: Vinita MACHADO Provider: Negin Le :1960 A ge:63 Y S ex:Female Date:01/02/2024 Address:[address] [place], [place] [address] [address] Pcp:Niharika Nolan DO Subjective: * Chief Complaints: * 1 . Multum To Medispan Conversion Encounter. * Medical History: * Medications: T aking Caffeine 200 MG Tablet orally , Taking Venlafaxine HCl 75 MG Tablet orally bid , Taking HYCOSAMINE 0.125MG 1 TAB PO BID , Notes to Pharmacist: *Please review for potential replacement for e-prescription and drug interaction check*, Taking Levothyroxine Sodium 100 MCG Tablet 6 tab (s) orally q week , Taking Polyethylene Glycol 3350 , Notes to Pharmacist: *Please review and pick correct strength-formulation from Medispan options. If intended option is not shown, discontinue and re-order from Quick Search*, Taking Vitamin D3 125 MCG (5000 UT) Capsule 1 cap(s) orally once a day , Taking Vitamin B-12 1000 MCG Tablet 1 tab(s) orally once a day , Unknown Prempro 0.45-1.5 MG Tablet orally * Allergies: T etracycline: fever. Objective: * Vitals: Assessment: * Assessment: 1. S enile/Osteoporosis without current pathological fracture - M81.0 (Primary) ?2. P ost Menopausal Osteoporosis - M81.0 (Primary) Plan: * Treatment: 2. P ost Menopausal Osteoporosis Continue Prolia Solution Prefilled Syringe, 60 MG/ML, 60 mg, subcutaneously, every 6 months. ? * Images: * Electronic signature of Prov ider Migration on 05/12/2025 at 10:53 AM EST Sign off status: Pending * Provider: Negin gaytan Migration Date: 0 01/02/2024 Generated for Mohan santiago/Juana/Afia on: 1 07/12/2024 10:53 AM EST
--- NOTE | 2025-05-12 10:52 | MHC.OFFVIS ---
Intake Visit Reasons: incomplete bladder emptying Intake Note: Patient presents today for incomplete bladder emptying Urology Medications:Estradiol, Vitamin B12, Potassium Blood Thinner:None Antibiotic Allergy:Tetracycline PVR:41ml Accompanied by: Self / Same As Patient Allergies tetracycline Allergy (Mild, Verified 05/12/25 10:52) Rash Medication List - Last Reconciled 05/12/25 by Lorrie Hector MD calcium carbonate-vitamin D3 600 mg-62.5 mcg (2,500 unit) 1 cap PO DAILY capsaicin 0.1% (Arthritis Pain Relief (capsaicin)) 1 appl topical TID cyanocobalamin (vitamin B-12) (B-12 DOTS) 2,000 mcg PO DAILY denosumab (Prolia) 60 mg subcut [id number] 6 months estradiol 0.01%(0.1mg/gram) (Estrace) 0.5 appful vaginal 3XW 90 days kydntowk-[id number]-cdgx pr con 15 billion cell-170 mg (Ultra Donna Plus) caps PO levothyroxine 100 mcg PO DAILY linaclotide 144 mcg (2 x 72 mcg) PO QAM 90 days nitrofurantoin monohyd/m-cryst 100 mg (Macrobid) 100 mg PO ONCE PRN potassium gluconate 595 mg PO DAILY venlafaxine ER 75 mg PO BID HPI Comments Details: Vinita is a very pleasant 63-year-old female patient of . She has a past medical history of MS, hypothyroidism, constipation, and overactive bladder. She presents to the office today for follow-up. Of note, patient was seen approximately 3 months ago as a new patient for lower urinary tract symptoms at which time a retroperitoneal ultrasound was ordered and the patient was started on low-dose terazosin for incomplete bladder emptying. Recent retroperitoneal ultrasound results reviewed with the patient today. In bilateral kidneys with no hydronephrosis. Left kidney with 4.5 cyst in the upper pole classified as a Bosniak 1 per radiology report. The bladder is well distended and normal. Bilateral ureteral jets are demonstrated. Pre void bladder volume is approximately 520 mL. Postvoid bladder volume is approximately 285 mL. The wall of the urinary bladder is irregular. There is floating debris in the urine. In discussion with the patient today she reports having stopped terazosin 1 mg at bedtime as she did not find this helpful. She reports experiencing dry nasal passages while taking . She reports feeling her constipation has significantly improved with recommendations of dried fruits daily. She discusses feeling this has also helped her. She had previously been following up with a urologist via online and had trialed hycosamine and oxybutynin without any improvement in lower urinary tract symptoms. Discussed at length causes and affects of incomplete bladder emptying. She reports nocturia however discusses her long sleep habits due to her MS and feels at times it is not her bladder that wakes her up to urinate. She reports noting urinary urgency and frequency. She otherwise denies hematuria, dysuria, foul smelling urine, changes to urinary stream, flank pain, fever, and or chills. In office urinalysis results reviewed with the patient today. Original PVR 198 however patient attempted to double void as directed 2nd PVR 0 mL. Discussed at length potential causes for lower urinary tract symptoms patient is experiencing. When asked she denies any previous history of nicotine dependence and or workplace chemical exposure. She otherwise offers no issues or concerns at this time. FOR[facility]LY [facility] Medical History 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, secondary progressive Screening for osteoporosis Screening for cervical cancer Microalbuminuria Breast cancer screening by mammogram Nocturia Incomplete bladder emptying Hypothyroidism (acquired) Surgical History Hx of tonsillectomy Family History Family/Other Breast cancer Father Heart disease Brother Cancer of kidney Social History Household Members: Spouse Housing: House Alcohol intake: never Patient Tobacco Use Status: Never used Tobacco e-Cigarette/Vaping Use: Never Used Second Hand Smoke Exposure: No service: No Current occupational status: retired Current occupational exposures/hazards: No Sexual orientation: Straight/Heterosexual Gender identity: Female Cognitive needs: No Hearing needs: No Vision needs: Yes (Patient wears reading glasses.) Results AMB Urinalysis, Automated UA Leukoctes 15 Quinn/uL Last Edit by Angelica Garcia on 05/12/25 15:26 UA Nitrite Negative Last Edit by Angelica Garcia on 05/12/25 15:26 UA Urobilinogen 0.2 mg/dL Last Edit by Angelica Garcia on 05/12/25 15:26 UA Protein 0 mg/dL Last Edit by Angelica Reyestiz on 05/12/25 15:26 UA pH 6.0 Last Edit by Angelica Reyestiz on 05/12/25 15:26 UA Blood 25 David/uL Last Edit by Angelica Reyestiz on 05/12/25 15:26 UA Specific [place] 1.010 Last Edit by Angelica Reyestiz on 05/12/25 15:26 UA Ketone Negative Last Edit by Angelica Reyestiz on 05/12/25 15:26 UA Bilirubin 0 mg/dL Last Edit by Angelica Reyestiz on 05/12/25 15:26 UA Glucose 0 mg/dL Last Edit by Angelica Reyestiz on 05/12/25 15:26 Assessment & Plan Assessment & Plan (1) Voiding dysfunction: Code(s): N39.8 - Other specified disorders of urinary system Category: Medical (2) Microscopic hematuria: Code(s): R31.29 - Other microscopic hematuria Category: Medical Orders: Orders US retroperitoneal comp Today N39.8 - Other specified disorders of urinary system, R31.29 - Other microscopic hematuria AMB Urinalysis Automated Today Z13.9 - Encounter for screening, unspecified AMB Post Void Residual by ultrasound Today R33.9 - Retention of urine, unspecified Medications: New nitrofurantoin monohyd/m-cryst 100 mg (Macrobid) must administer with a meal/food 100 mg PO ONCE PRN 30 caps 1RF Use as directed post sexual activity Coding Diagnoses Voiding dysfunction N39.8 Microscopic hematuria R31.29
--- OUTSIDE RECORDS SUMMARY | 2025-05-12 10:54 | XMS_ITS | Patient Health Record ---
Author Organization [facility] Address [address] [facility] [address] [place] [phone] Care Team Providers Care Firer Glost Kiln Name Role Phone Niharika Nolan DO Primary Care Provider Kun Melendrez MD, Salvador Unavailable [phone] Allergies Allergen (clinical drug ingredient) Drug/Non Drug [...] review and pick correct strength-formulat ion from In[employer] options. If intended option is not shown, [...] W/U Status Risk Notes Problem Age-related osteoporosis (091126613) Senile/Osteoporo sis without current pathological fracture (M81.0) Active confirmed Problem Age-related osteoporosis (587044870) Post Menopausal Osteoporosis (M81.0) Active confirmed Plan [...] Phosphatase 02/14/2016 Vitamin D 25-OH (not 1,25) 06/19/2017 Vitamin D 25-OH (not 1,25) 12/17/2017 Vitamin D 25-OH (not 1,25) 07/23/2018 DXA 12/27/2019 DXA ( IN HOUSE ONLY) 12/27/2019 Insurance Providers Payer Name Payer Address Payer Phone Subscriber Number Group Number Insured Name Patient Relationship to Insured Coverage Start Date Coverage End Date [employer] [address] [address] [place], [place] [id number] Vinita Heredia Self - patient is the insured Prolia Copay Coupon Program [address] [id number] [place] [address] [id number] Carsonloni Vinita Self - patient is the insured Medical (General) History Medical History History ICD Code Hypothyroidism IBS Multiple sclerosis - secondary progressi ve Surgical History Surgery Date(Month/Year) Tonsillectomy
--- OUTSIDE RECORDS SUMMARY | 2025-05-12 10:54 | XMS_ITS | Clinical Summary ---
Author Organization [facility] Address [address] [place] [address] Care Team Providers Care Manager Test Name Role Phone Goldy Slade MD Primary [...] Depression Screening 06/22/2024 COVID-19 Vaccine (1 - 2024-2 6 season) 2025 Influenza Vaccine (#1) 2025 RSV [...] [place] Care Teams Manager Test Relationship Specialty Start Date End Date Goldy Slade MD PCP - General Family Medicine 05/16/24
--- OUTSIDE RECORDS SUMMARY | 2025-05-12 10:54 | XMS_ITS | Clinical Summary ---
Author Organization [facility] Address [address] [place] [address] Care Team Providers Care Battery Container Inspector Name Role Phone Unavailable Primary Care Provider [...]
== END 2025-05-12 11:26 | disposition home or self-care (01) ==
LOC: HO.HUSH 10:18
PROVIDERS: PCP Family Medicine; Visit Provider Urology
DX: Z13.9 Encounter for screening, unspecified (principal)

== ENCOUNTER → 2025-05-12 10:17 | Outpatient (BNVA) | payer MEDICARE, SELFPAY | PROVIDERS: PCP Family Medicine; Visit Provider Urology | DX: R31.9 Hematuria, unspecified (principal) | CPT/HCPCS: 81003 ==

== ENCOUNTER 2025-06-01 10:12 | Outpatient (AMB) | payer MEDICARE, SELFPAY ==
--- NOTE | 2025-06-01 11:02 | A.OFFVIS_ITS ---
Vital Signs 06/01/25 11:06 Height 5 ft 1 in Weight 84 lb 14.047 oz BMI 16.0 BP 96/62 Blood Pressure Location Lt brachial Position Sitting Pulse 76 Pulse Source Pulse Oximeter Pulse Oximetry (%) 98 Oxygen Delivery Method Room Air Intake Visit Reasons: Follow up Intake Note: Patient presents today for Osteoporosis follow up. Quality Lab Technician Required: No Information Interpreted: non-clinical & clinical Accompanied by: Self / Same As Patient Allergies tetracycline Allergy (Mild, Verified 06/01/25 11:06) Rash Medication List - Last Reconciled 06/01/25 by Opal Joyce MD calcium carbonate-vitamin D3 600 mg-62.5 mcg (2,500 unit) 1 cap PO DAILY capsaicin 0.1% (Arthritis Pain Relief (capsaicin)) 1 appl topical TID cyanocobalamin (vitamin B-12) (B-12 DOTS) 2,000 mcg PO DAILY denosumab (Prolia) 60 mg subcut [id number] 6 months estradiol 0.01%(0.1mg/gram) (Estrace) 0.5 appful vaginal 3XW 90 days akcspcrg-iguebclfp-cljz pr con 15 billion cell-170 mg (Ultra Donna Plus) caps PO levothyroxine 100 mcg PO DAILY linaclotide 144 mcg (2 x 72 mcg) PO QAM 90 days nitrofurantoin monohyd/m-cryst 100 mg (Macrobid) 100 mg PO ONCE PRN potassium gluconate 595 mg PO DAILY venlafaxine ER 75 mg PO BID HPI Comments Details: Patient is a 65-year-old female with secondary progressive multiple sclerosis (previously on avenex), subclinical hypothyroidism on levothyroxine and depression here today for follow up of osteoporosis Interval History: Patient last seen 11/15/24 with me. - On Prolia every 6 months - Patient doing well. Had a fall during winter with what seems to be concussive symptoms with transient memory loss. - She did not seek medical attention at that time however her symptoms resolved. No broken bones. - Otherwise no complaints today apart from animal bites Today - On Prolia 60mg SC every 6 months - She self-injects Prolia at home for her osteoporosis and reports no issues with the treatment. - She has a history of stopping Prolia in the past after moving, which resulted in a regression to her baseline bone density. - In February, lab results showed elevated liver function tests. - The patient attributed this to potential dehydration, as she consciously limits her fluid intake before traveling due to frequent urination. - Past medical history is significant for multiple sclerosis, for which she took an injectable medication for years that has the potential to affect the liver. - She also has osteoarthritis. - She had a fall on ice during the previous winter but sustained no fractures. - Her most recent vitamin D level was good. Rheumatologic History: Presented 03/2024 for evaluation of low bone density. Risk Factor Assessment: * Advanced age: 64 * Race: * Female sex * Menarche: 15/14 years. Menopause: 49 years * No known family history of osteoporosis or hip fractures. Mother has a history of falling with subsequent wrist fracture. * Never been * Calcium/vitamin-D intake: Eats yogurt every day with a protein powder. Does not like milk. 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 [place] * Cigarette smoking: Never smoker * Excessive alcohol: Does not drink alcohol * Excessive caffeine: Takes 1 caffeine pill per day High-risk medication assessment: Has a history of glucocorticoid use with MS flares Also takes venlafaxine for several years Does have balance issues due to MS and has fallen but no broken bones Current Rheum Medications: Prolia 60 mg sc every 6 months Vitamin-D supplementation PFSH Medical History 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, secondary progressive Screening for osteoporosis Screening for cervical cancer Microalbuminuria Breast cancer screening by mammogram Nocturia Incomplete bladder emptying Hypothyroidism (acquired) Surgical History Hx of tonsillectomy Family History Family/Other Breast cancer Father Heart disease Brother Cancer of kidney Social History Household Members: Spouse Housing: House Alcohol intake: never Patient Tobacco Use Status: Never used Tobacco e-Cigarette/Vaping Use: Never Used Second Hand Smoke Exposure: No service: No Current occupational status: retired Current occupational exposures/hazards: No Sexual orientation: Straight/Heterosexual Gender identity: Female Cognitive needs: No Hearing needs: No Vision needs: Yes (Patient wears reading glasses.) Review of Systems Narrative Review of Systems - Musculoskeletal: Reports mild osteoarthritis. - Genitourinary: Reports urinary frequency, prompting her to limit fluid intake before travel. - Constitutional: Denies any problems between the last visit and today. All other systems reviewed and are unremarkable except noted above Physical Exam Exam Exam: Vital signs reviewed Physical Examination CONSTITUITIONAL Patient alert and cooperative. Well appearing and in no apparent painful distress MSK Hands * Right Hand: Able to make a fist. No swelling or tenderness to palpation of the MCPs, PIPs or DIPs. * Left Hand: Able to make a fist. No swelling or tenderness to palpation of the MCPs, PIPs or DIPs. * Herbedens nodes noted bilaterally Wrists * Right Wrist: Full ROM to flexion and extension. No swelling or TTP * Left Wrist: Full ROM to flexion and extension. No swelling or TTP Elbows * Right Elbow: Full ROM. No swelling or TTP. No TTP of the medial epicondyle. No TTP of the lateral epicondyle * Left Elbow: Full ROM. No swelling or TTP. No TTP of the medial epicondyle. No TTP of the lateral epicondyle Shoulders * Right shoulder: Full ROM. No swelling noted. No TTP of the AC joint. No TTP of the subacromial bursa. No TTP of the posterior shoulder * Left shoulder: Full ROM. No swelling noted. No TTP of the AC joint. No TTP of the subacromial bursa. No TTP of the posterior shoulder Knees * Right knee: No swelling noted. No TTP of the knee joint line. No TTP of pes anserine bursa * Left knee: No swelling noted. No TTP of the knee joint line. No TTP of pes anserine bursa. * Crepitations felt bilaterally Ankles * Right ankle: Good ankle dorsiflexion and plantar flexion. No swelling. No TTP of the ankle joint * Left ankle: Good ankle dorsiflexion and plantar flexion. No swelling. No TTP of the ankle joint Feet * Right foot: Negative squeeze test * Left foot: Negative squeeze test Tender points? * No tenderness to palpation of the bilateral trapezius, supraspinatus, anterior costochondral junctions, bilateral suboccipital muscle insertions SKIN No rashes Vital Signs: Last Vital Signs Pulse 76 06/01/25 11:06 BP 96/62 06/01/25 11:06 Pulse Ox 98 06/01/25 11:06 Oxygen Delivery Method Room Air 06/01/25 11:06 BMI result Body Mass Index 16.0 Results Reviewed Results Reviewed: Laboratory Tests 03/15/25 08:36 Sodium 140 Potassium 4.7 Chloride 107 Carbon Dioxide 28 BUN 17 H Creatinine 0.62 AST 42 H ALT 34 H 25-OH Vitamin D Total 78.2 DEXA 09/2023 FINDINGS: LEFT FEMUR, NECK: BMD 0.575 g/cm2, Z-score -1.3, T-score -3.3, osteoporosis. LEFT FEMUR, TOTAL: BMD 0.577 g/cm2, Z-score -1.6, T-score -3.4, osteoporosis. AP SPINE L1-L4: BMD 0.859 g/cm2, Z-score -0.3, T-score -2.7, osteoporosis. Assessment & Plan Assessment & Plan (1) Osteoporosis: Comment: DEXA 09/2023: AP Spine -2.7, Left femur neck -3.3, Left femur total -3.4 Code(s): M81.0 - Age-related osteoporosis without current pathological fracture Category: Medical Qualifiers: Osteoporosis type: age-related Presence of current pathological fracture: without current pathological fracture Qualified Code(s): M81.0 - Age- related osteoporosis without current pathological fracture Plan: #Age related osteoporosis without fractures Patient is a 65-year-old female with age-related osteoporosis here today for follow up. Currently on Prolia injections and tolerating same well. Vitamin-D at goal. The patient is tolerating Prolia injections well. It was noted that Prolia is a long-term medication that cannot be discontinued without risking rapid bone density loss, an event the patient previously experienced. She will continue with her Prolia injections as scheduled, with automatic refills. An order will be placed for a follow-up bone density scan to be performed at [place] after September 2025. A follow-up visit is scheduled for November 2025 to review the results. Plan - Prolia 60mg SC every 6 months - RTC 6 months - Labs before visit: CMP, Vit D - DEXA 09/2025 (2) Transaminitis: Code(s): R74.01 - Elevation of levels of liver transaminase levels Plan: #Transaminitis The patient's elevated liver function tests from February were addressed. Dehydration was deemed an unlikely cause, as it typically affects kidney function (BUN), which was normal. Prolia is not considered a likely cause of the elevation. The patient's history of taking an injectable medication for MS that can affect the liver was noted. Plan is to check AST and ALT levels again today. If the results are still elevated, a further liver workup will be considered. The patient will have the lab draw done at the on-site lab today. Plan - AST/ALT done today (3) Encounter for monitoring denosumab therapy: Code(s): Z51.81 - Encounter for therapeutic drug level monitoring; Z79.620 - intermediate (current) use of immunosuppressive biologic Plan: #Long-term use of Denosumab Discussed with patient the risks and benefits of denosumab (Prolia) for the management of their osteoporosis Benefits include improved bone density, decreased fracture risk Risks include rapid bone loss if denosumab stopped, osteonecrosis of the jaw especially in patients with poor oral hygiene/diabetes/use of glucocorticoids/age greater than 65 years, atypical femoral fractures, injection site reactions. Mild increased risk of infections due to RANKL on T helper cells, increased risk of hypocalcemia especially in CKD patients Keep vitamin-D at least 35 ng/mL Advised to delay non emergent dental procedures to toward the end of the 6 month cycle and if they plan to stop denosumab would need to continue antiresorptive to maintain the effects of denosumabe Plan I discussed the management of the patient's osteoporosis, advising her to continue her Prolia injections. I explained the importance of not stopping the medication due to the risk of rapid bone density decline, which she has experienced before. I informed her that I have placed an order for a bone density scan to be done after September 2025, with a follow-up appointment with me in November 2025. We also addressed her elevated liver enzymes from February. I explained that dehydration is an unlikely cause, and ordered a repeat AST and ALT today to re- evaluate. I informed her that if the tests remain elevated, we will need to investigate her liver further. The patient agreed to this plan and will have her blood drawn at the lab today. I spent 20 minutes reviewing the record and labs, seeing the patient, discussing the treatment plan and documenting in the medical record Orders: Orders Alanine Aminotransferase Today Z79.899 - Other terminal carman (current) drug therapy Comprehensive Met. Panel 6 Months R79.89 - Other specified abnormal findings of blood chemistry, Z79.899 - Other terminal carman (current) drug therapy Vitamin D 25-OH Total 6 Months R79.89 - Other specified abnormal findings of blood chemistry XR DEXA axial skeleton 10/20/25 M81.0 - Age-related osteoporosis without current pathological fracture Aspartate Amino Transferase Today Z79.899 - Other terminal carman (current) drug therapy Coding Level of Care Code Est Pt Level 3 (41430) Add On Problem Visit Only Diagnoses Age-related osteoporosis without current pathological fracture M81.0 Osteoporosis type: age-related Presence of current pathological fracture: without current pathological fracture Transaminitis R74.01 Encounter for monitoring denosumab therapy Z51.81; Z79.620
[2025-06-01 11:06] VITALS: BP 96/62; PULSE 76; O2SAT 98; BMI 16.0
== END 2025-06-01 11:49 | disposition home or self-care (01) ==
LOC: HO.RHES 10:13
PROVIDERS: PCP Family Medicine; Visit Provider Student in an Organized Health Care Education/Training Program
DX: M81.0 Age-related osteoporosis without current pathological fracture (principal); R74.01 Elevation of levels of liver transaminase levels; Z51.81 Encounter for therapeutic drug level monitoring; Z79.620 Long term (current) use of immunosuppressive biologic
CPT/HCPCS: 99213; G2211

== ENCOUNTER 2025-06-01 10:12 | Outpatient (REF) | payer MEDICARE, SELFPAY ==
[2025-06-01 14:27] LABS: Alanine Aminotransferase 46 U/L (0-31); Aspartate Amino Transferase 40 U/L (5-31)
== END 2025-06-01 10:13 | disposition home or self-care (01) ==
LOC: HO.HKASLDS 10:12
PROVIDERS: PCP Family Medicine; Visit Provider Student in an Organized Health Care Education/Training Program
DX: M81.0 Age-related osteoporosis without current pathological fracture (principal); R74.01 Elevation of levels of liver transaminase levels; Z51.81 Encounter for therapeutic drug level monitoring; Z79.620 Long term (current) use of immunosuppressive biologic; Z79.899 Other long term (current) drug therapy
CPT/HCPCS: 36415; 84450; 84460; 99212

== ENCOUNTER 2025-06-05 09:48 | Outpatient (REF) | payer MEDICARE, SELFPAY ==
--- NOTE | ~2025-06-05 | MM_ITS ---
EXAMINATION: MM SCREENING DIGITAL BREAST TOMOSYNTHESIS, BILATERAL CLINICAL INFORMATION: Screening. Asymptomatic. COMPARISON: Mammography: Comparison is made with available priors TECHNIQUE: Digital breast mammography with tomosynthesis is performed in both the craniocaudal and mediolateral oblique views along with computer-aided detection (CAD). FINDINGS: The breasts are heterogeneously dense, which may obscure small masses. There are no significant masses, abnormal calcifications, or other abnormalities. MM/MM tomosynthesis screening BI IMPRESSION: No mammographic evidence of malignancy. ASSESSMENT: BI-RADS Category 1: Negative RECOMMENDATION: Routine annual mammography screening. 1 year F/U This examination should not preclude the clinical evaluation of a suspicious palpable abnormality. This patient's information was entered into a reminder system with a target due date for their next mammogram. Electronically signed by: Adriane Armijo DO 06/07/2025 04:01 PM [facility]ONDA
== END 2025-06-05 09:49 | disposition home or self-care (01) ==
LOC: HO.MAMMO 09:48
PROVIDERS: PCP Family Medicine; Visit Provider Obstetrics & Gynecology
DX: Z12.31 Encounter for screening mammogram for malignant neoplasm of breast (principal)
CPT/HCPCS: 77063; 77067

== ENCOUNTER → 2025-06-05 10:00 | Outpatient (BNV) | payer MEDICARE, SELFPAY | PROVIDERS: PCP Family Medicine; Visit Provider Internal Medicine | DX: Z12.31 Encounter for screening mammogram for malignant neoplasm of breast (principal) | CPT/HCPCS: 77063; 77067 ==